=== PATIENT | male | born 1960 | race Caucasian/White ===

== ENCOUNTER 2020-12-30 09:44 | Inpatient (IN) | payer MEDICARE, OTHER ==
[2020-12-30] MEDS ORDERED: MORPHINE SULFATE 4 MG/ML SYRINGE IV STA (11:19)
[2020-12-30] MEDS ORDERED: ONDANSETRON 4 MG/2 ML VIAL IVP STA (11:19)
[2020-12-30] MEDS ORDERED: SODIUM CHLORIDE 0.9% 1,000 ML IV STA (11:19)
--- NOTE | 2020-12-30 11:23 | ED ---
Abdominal Pain HPI - General Chief Complaint: Abdominal Pain Stated Complaint: Sent by PCP - colostomy issues Time Seen by Provider: 12/30/20 11:01 Source: patient, RN notes reviewed Mode of arrival: ambulatory Limitations: no limitations - History of Present Illness Initial Comments: Patient is a 60-year-old male that presents to the emergency department complaining of a colostomy hernia. He notes that he's had in the past but was able to reduce it on his own by gently pushing on it or it would reduce on its own. He notes over the last couple days she's tried everything and pushing on it to playing with it with no relief. He notes that he has mailed to pass any stools throughout his liquid and moderate amount of blood. He states the pain is an 8 out of 10 currently after pushing on the chart reduce it. He notes that he did have one bout of vomiting on Tuesday but has not been nauseous or sick today. He notes that he has been thinking about getting his hernia fixed for a while but needed take care of a few other things first. He notes that now he is thinking the hernia takes priority and wants to get taken care of. He denied any chest pain shortness of breath headache fever fatigue chills weakness numbness tingling. - Related Data Home Medications Medication Instructions Recorded Confirmed metFORMIN HCL [Glucophage] 1,000 mg PO BID 12/19/14 12/30/20 Allergies Allergy/AdvReac Type Severity Reaction Status Date / Time No Known Allergies Allergy Verified 12/30/20 13:26 Review of Systems ROS Statement: Those systems with pertinent positive or pertinent negative responses have been documented in the HPI. ROS Other: All systems not noted in ROS Statement are negative. Past Medical History Past Medical History: Diabetes Mellitus, Hypertension Additional Past Medical History / Comment(s): COLON CANCER, Dumping syndrome History of Any Multi-Drug Resistant Organisms: None Reported Past Surgical History: Tonsillectomy Additional Past Surgical History / Comment(s): COLECTOMY, COLOSTOMY, TESTICULAR SURGERY. PARTIAL GASTRECTOMY, neck surgery Past Anesthesia/Blood Transfusion Reactions: No Reported Reaction Past Psychological History: No Psychological Hx Reported Smoking Status: Never smoker Past Alcohol Use History: Occasional Past Drug Use History: Marijuana - Past Family History Father Family Medical History: No Reported History General Exam Limitations: no limitations General appearance: alert, in no apparent distress Head exam: Present: atraumatic, normocephalic, normal inspection Eye exam: Present: normal appearance, PERRL, EOMI. Absent: scleral icterus, conjunctival injection, periorbital swelling Neck exam: Present: normal inspection. Absent: tenderness, meningismus, lymphadenopathy Respiratory exam: Present: normal lung sounds bilaterally. Absent: respiratory distress, wheezes, rales, rhonchi, stridor Cardiovascular Exam: Present: regular rate, normal rhythm, normal heart sounds. Absent: systolic murmur, diastolic murmur, rubs, gallop, clicks GI/Abdominal exam: Present: soft, tenderness (Over the hernia and ostomy.), normal bowel sounds, hernia (Of colostomy), other (Ostomy prolapse at the distal aspect has a dusky appearance with several dark almost blacked mucus patches.). Absent: distended, guarding, rebound, rigid Extremities exam: Present: normal inspection, full ROM, normal capillary refill. Absent: tenderness, pedal edema, joint swelling, calf tenderness Back exam: Present: normal inspection Neurological exam: Present: alert, oriented X3, CN II-XII intact Course Vital Signs 12/30/20 10:01 Temperature 98.1 F Pulse Rate 90 Respiratory 18 Rate Blood Pressure 156/87 O2 Sat by Pulse 96 Oximetry Medical Decision Making - Medical Decision Making 60-year-old male complaining of hernia to his colostomy. Labs, 1 L normal saline, CT of the abdomen and pelvis without contrast, 4 mg of morphine, 4 mg of Zofran ordered. Table sugar was used to try to reduce the prolapse, did not work. Case discussed with Dr. Workman who tried to also reduce the prolapse with no success. Dr. Medellin was consulted and will accept the admit. - Lab Data Result diagrams: 12/30/20 11:46 12/30/20 11:46 Lab Results 12/30/20 12/30/20 Range/Units 11:46 11:46 WBC 14.8 H (3.8-10.6) k/uL RBC 4.44 (4.30-5.90) m/uL Hgb 14.5 (13.0-17.5) gm/dL Hct 40.3 (39.0-53.0) % MCV 90.7 (80.0-100.0) fL MCH 32.6 (25.0-35.0) pg MCHC 36.0 (31.0-37.0) g/dL RDW 13.2 (11.5-15.5) % Plt Count 510 H (150-450) k/uL MPV 6.7 Neutrophils % 80 % Lymphocytes % 8 % Monocytes % 8 % Eosinophils % 2 % Basophils % 1 % Neutrophils # 11.9 H (1.3-7.7) k/uL Lymphocytes # 1.1 (1.0-4.8) k/uL Monocytes # 1.2 H (0-1.0) k/uL Eosinophils # 0.3 (0-0.7) k/uL Basophils # 0.1 (0-0.2) k/uL Sodium 134 L (137-145) mmol/L Potassium 4.2 (3.5-5.1) mmol/L Chloride 100 (98-107) mmol/L Carbon Dioxide 22 (22-30) mmol/L Anion Gap 12 mmol/L BUN 11 (9-20) mg/dL Creatinine 1.49 H (0.66-1.25) mg/dL Est GFR (CKD-EPI)AfAm 59 (>60 ml/min/1.73 sqM) Est GFR (CKD-EPI)NonAf 51 (>60 ml/min/1.73 sqM) Glucose 149 H (74-99) mg/dL Calcium 10.0 (8.4-10.2) mg/dL Total Bilirubin 0.8 (0.2-1.3) mg/dL AST 34 (17-59) U/L ALT 16 (4-49) U/L Alkaline Phosphatase 80 (38-126) U/L Total Protein 8.0 (6.3-8.2) g/dL Albumin 4.9 (3.5-5.0) g/dL Amylase 42 (30-110) U/L Lipase 73 (23-300) U/L - Radiology Data Radiology results: report reviewed, image reviewed CT of the abdomen and pelvis. Left lower quadrant ostomy noted with mild wall thickening no definite inflammatory process seen. Disposition Clinical Impression: Gastrointestinal stoma prolapse Disposition: ADMITTED IP TO THIS [facility] Condition: Stable Is patient prescribed a controlled substance at d/c from ED?: No Referrals: Andrés Sandoval DO [Primary Care Provider] - 1-2 days Time of Disposition: 14:29
[2020-12-30 11:50] LABS: Basophils # (A) 0.1 k/uL (0-0.2); Basophils % (A) 1 %; Eosinophils # (A) 0.3 k/uL (0-0.7); Eosinophils % (A) 2 %; HCT 40.3 % (39.0-53.0); HGB 14.5 gm/dL (13.0-17.5); Lymphocytes # (A) 1.1 k/uL (1.0-4.8); Lymphocytes % (A) 8 %; MCH 32.6 pg (25.0-35.0); MCV 90.7 fL (80.0-100.0); Mean Platelet Volume 6.7; Monocytes # (A) 1.2 k/uL (0-1.0); Monocytes % (A) 8 %; Neutrophils # (A) 11.9 k/uL (1.3-7.7); Neutrophils % (A) 80 %; Platelet Count 510 k/uL (150-450); RBC 4.44 m/uL (4.30-5.90); RDW 13.2 % (11.5-15.5); WBC 14.8 k/uL (3.8-10.6)
[2020-12-30 12:01] LABS: Albumin 4.9 g/dL (3.5-5.0); Potassium 4.2 mmol/L (3.5-5.1); Total Bilirubin 0.8 mg/dL (0.2-1.3)
--- NOTE | 2020-12-30 12:23 | CT ---
EXAMINATION TYPE: CT abdomen pelvis wo con DATE OF EXAM: 12/30/2020 COMPARISON: 12/13/1714 HISTORY: bleeding from ostomy CT DLP: 500.5 mGycm Examination of the solid and hollow viscera is limited given the lack of contrast. FINDINGS: LUNG BASES: No evidence for nodule. No evidence for infiltrate. Calcified pleural plaques noted. LIVER/GB: The gallbladder is unremarkable. No space-occupying hepatic lesion. PANCREAS: No pancreatic mass identified. No inflammatory process seen. SPLEEN: No evidence for splenomegaly. No intrasplenic lesions seen. ADRENALS: No adrenal nodules identified. No evidence for thickening. KIDNEYS: No evidence for renal mass. No nephrolithiasis. No hydronephrosis. BOWEL: Appendix has a normal appearance. Left lower quadrant ostomy noted with mild wall thickening. No definite inflammatory process seen. No evidence of bowel obstruction. No inflammatory process. Lymph nodes: No evidence for adenopathy greater than 1 cm. Abdominal aorta: Atheromatous changes seen. No evidence for aneurysm. Genital organs: No significant abnormality. Other: No significant abnormality. IMPRESSION: Left lower quadrant ostomy noted with mild wall thickening. No definite inflammatory process seen.
[2020-12-30] MEDS ORDERED: HYDROmorphone 1 MG/ML 1 ML SYRINGE IVP STA (12:48)
[2020-12-30] MEDS ORDERED: NALOXONE 0.4 MG/ML 1 ML VIAL IV PRN (14:16)
[2020-12-30] MEDS: SODIUM CHLORIDE 0.9% 1,000 ML IV SCH (14:28)
[2020-12-30] MEDS: MORPHINE SULFATE 4 MG/ML SYRINGE IV PRN ×3 (15:03→23:50)
--- NOTE | 2020-12-30 15:53 | P.GSCN ---
History of Present Illness Consult date: 12/30/20 History of present illness: CHIEF COMPLAINT: Prolapsed stoma HISTORY OF PRESENT ILLNESS: This is a 60-year-old male with a known history of rectal cancer with bowel resection and colostomy in 2013 at [facility] by Dr. Dye. He's also had gastrectomy and small bowel resection in 1992 due to cyst on his duodenum. He's had drainage of a pancreatic cyst at [facility] in 2016. He also has history of diabetes and hypertension. He has a prior history of alcohol abuse. He has not had any alcohol in 7 years. Patient presents to the emergency room due to prolapse of his stoma. He stated that similar symptoms happened a year ago and he was able to reduce it on his own. On Tuesday he noted that the Soma started to protrude out words and he had inc rease in pain. He was unable to reduce the hernia on his on. He has been having bleeding from the stoma. He has had no stool from the stoma. He's had some nausea and decrease in appetite. Patient denies any cardiac history. Denies any fever chills or sweats. Denies any vomiting. PAST MEDICAL HISTORY: See list. PAST SURGICAL HISTORY: See list. MEDICATIONS: See list. ALLERGIES: See list. SOCIAL HISTORY: No illicit drug use. REVIEW OF SYSTEMS: CONSTITUTIONAL: Denies fever or chills. HEENT: Denies blurred vision, vision changes, or eye pain. Denies hemoptysis CARDIOVASCULAR: Denies chest pain or pressure. RESPIRATORY: No shortness of breath. GASTROINTESTINAL: See HPI for pertinent findings HEMATOLOGIC: Denies bleeding disorders. GENITOURINARY: Denies any blood in urine or increased urinary frequency. SKIN: Denies pruitis. Denies rash. PHYSICAL EXAM: VITAL SIGNS: Reviewed GENERAL: Well-developed in no acute distress. HEENT: No sclera icterus. Extraocular movements grossly intact. Moist buccal mucosa. Head is atraumatic, normocephalic. No nasal drainage. ABDOMEN: Soft. On the left side of the abdomen patient has a prolapsed stoma. Around the stoma the abdomen is distended and tender. NEUROLOGIC: Alert and oriented. Cranial nerves II through XII grossly intact. LABORATORY DATA: WBC 14.8 Hgb 14.5 platelets 510 sodium 134 potassium 4.2 creatinine 1.49 LFTs normal lipase 73 IMAGING: Computed tomography scan of the abdomen and pelvis left lower quadrant ostomy noted with mild wall thickening. No definite inflammatory process seen ASSESSMENT: 1. Prolapsed stoma 2. History of rectal cancer with bowel resection and colostomy placement in 2013 3. Dehydration and acute kidney injury 4. Diabetes mellitus type 2 PLAN: -Patient scheduled for revision of colostomy tomorrow, 12/31/[address] Batres -Keep patient nothing by mouth -Continue IV fluids -Continue pain medication as needed Thank you for this consultation Physician Senior Nuclear Medicine Technologist note has been reviewed by physician. Signing provider agrees with the documented findings, assessment, and plan of care. Past Medical History Past Medical History: Diabetes Mellitus, Hypertension Additional Past Medical History / Comment(s): COLON CANCER, Dumping syndrome History of Any Multi-Drug Resistant Organisms: None Reported Past Surgical History: Tonsillectomy Additional Past Surgical History / Comment(s): COLECTOMY, COLOSTOMY, TESTICULAR SURGERY. PARTIAL GASTRECTOMY, neck surgery Past Anesthesia/Blood Transfusion Reactions: No Reported Reaction Past Psychological History: No Psychological Hx Reported Smoking Status: Never smoker Past Alcohol Use History: Occasional Past Drug Use History: Marijuana - Past Family History Father Family Medical History: No Reported History Medications and Allergies Home Medications Medication Instructions Recorded Confirmed Type metFORMIN HCL [Glucophage] 1,000 mg PO BID 12/19/14 12/30/20 History Allergies Allergy/AdvReac Type Severity Reaction Status Date / Time No Known Allergies Allergy Verified 12/30/20 13:26 Surgical - Exam Vital Signs Temp Pulse Resp BP Pulse Ox 98.1 F 90 18 156/87 96 12/30/20 10:01 12/30/20 10:01 12/30/20 10:01 12/30/20 10:01 12/30/20 10:01 Results - Labs 12/30/20 11:46 12/30/20 11:46 Abnormal Lab Results - Last 24 Hours (Table) 12/30/20 12/30/20 Range/Units 11:46 11:46 WBC 14.8 H (3.8-10.6) k/uL Plt Count 510 H (150-450) k/uL Neutrophils # 11.9 H (1.3-7.7) k/uL Monocytes # 1.2 H (0-1.0) k/uL Sodium 134 L (137-145) mmol/L Creatinine 1.49 H (0.66-1.25) mg/dL Glucose 149 H (74-99) mg/dL Diabetes panel 12/30/20 Range/Units 11:46 Sodium 134 L (137-145) mmol/L Potassium 4.2 (3.5-5.1) mmol/L Chloride 100 (98-107) mmol/L Carbon Dioxide 22 (22-30) mmol/L BUN 11 (9-20) mg/dL Creatinine 1.49 H (0.66-1.25) mg/dL Glucose 149 H (74-99) mg/dL Calcium 10.0 (8.4-10.2) mg/dL AST 34 (17-59) U/L ALT 16 (4-49) U/L Alkaline Phosphatase 80 (38-126) U/L Total Protein 8.0 (6.3-8.2) g/dL Albumin 4.9 (3.5-5.0) g/dL Calcium panel 12/30/20 Range/Units 11:46 Calcium 10.0 (8.4-10.2) mg/dL Albumin 4.9 (3.5-5.0) g/dL Pituitary panel 12/30/20 Range/Units 11:46 Sodium 134 L (137-145) mmol/L Potassium 4.2 (3.5-5.1) mmol/L Chloride 100 (98-107) mmol/L Carbon Dioxide 22 (22-30) mmol/L BUN 11 (9-20) mg/dL Creatinine 1.49 H (0.66-1.25) mg/dL Glucose 149 H (74-99) mg/dL Calcium 10.0 (8.4-10.2) mg/dL Adrenal panel 12/30/20 Range/Units 11:46 Sodium 134 L (137-145) mmol/L Potassium 4.2 (3.5-5.1) mmol/L Chloride 100 (98-107) mmol/L Carbon Dioxide 22 (22-30) mmol/L BUN 11 (9-20) mg/dL Creatinine 1.49 H (0.66-1.25) mg/dL Glucose 149 H (74-99) mg/dL Calcium 10.0 (8.4-10.2) mg/dL Total Bilirubin 0.8 (0.2-1.3) mg/dL AST 34 (17-59) U/L ALT 16 (4-49) U/L Alkaline Phosphatase 80 (38-126) U/L Total Protein 8.0 (6.3-8.2) g/dL Albumin 4.9 (3.5-5.0) g/dL
[2020-12-30] MEDS: PIPERACILLIN-TAZOBACTAM 3.375 GM in SODIUM CHLORIDE 0.9% 100 ML IVPB SCH (20:52)
[2020-12-31] MEDS: MORPHINE SULFATE 4 MG/ML SYRINGE IV PRN ×4 (05:09→22:28)
[2020-12-31 05:23] LABS: Basophils # (A) 0.1 k/uL (0-0.2); Basophils % (A) 1 %; Eosinophils # (A) 0.2 k/uL (0-0.7); Eosinophils % (A) 3 %; HCT 36.8 % (39.0-53.0); HGB 13.1 gm/dL (13.0-17.5); Lymphocytes # (A) 1.2 k/uL (1.0-4.8); Lymphocytes % (A) 12 %; MCH 32.9 pg (25.0-35.0); MCHC 35.7 g/dL (31.0-37.0); MCV 92.1 fL (80.0-100.0); Mean Platelet Volume 6.7; Monocytes # (A) 1.1 k/uL (0-1.0); Monocytes % (A) 11 %; Neutrophils % (A) 71 %; Platelet Count 408 k/uL (150-450); RDW 13.3 % (11.5-15.5); WBC 9.7 k/uL (3.8-10.6)
[2020-12-31 05:35] LABS: African American GFR (CKD) >90 (>60 ml/min/1.73 sqM); Anion Gap 11 mmol/L; Blood Urea Nitrogen 11 mg/dL (9-20); Calcium 8.7 mg/dL (8.4-10.2); Carbon Dioxide 21 mmol/L (22-30); Chloride 105 mmol/L (98-107); Glucose 120 mg/dL (74-99); Non-African American GFR(CKD) 82 (>60 ml/min/1.73 sqM); Potassium 3.9 mmol/L (3.5-5.1); Sodium 137 mmol/L (137-145)
[2020-12-31] MEDS: PIPERACILLIN-TAZOBACTAM 3.375 GM in SODIUM CHLORIDE 0.9% 100 ML IVPB SCH ×3 (09:27→22:30)
[2020-12-31] MEDS ORDERED: IV FLUID CONTINUATION 1,000 ML IV ONE (13:11)
[2020-12-31 13:12] LABS: Glucose,Whole Blood 110 mg/dL (75-99)
[2020-12-31] MEDS ORDERED: DEXAMETHASONE SOD PHOSPHATE 4 MG/ML 1 ML VIAL IVP ONE (13:14)
[2020-12-31] MEDS ORDERED: ONDANSETRON 4 MG/2 ML VIAL IVP ONE (13:14)
[2020-12-31] MEDS ORDERED: ONDANSETRON 4 MG/2 ML VIAL ONE (13:15)
[2020-12-31] MEDS ORDERED: HEPARIN SODIUM,PORCINE 5,000 UNIT/ML 1 ML VIAL SQ ONE (13:41)
[2020-12-31 14:05] VITALS: BMI 20.9
[2020-12-31] MEDS ORDERED: GLYCOPYRROLATE 0.2 MG/ML 2 ML VIAL ONE (14:16)
[2020-12-31] MEDS ORDERED: fentaNYL (PF) 50 MCG/ML 2 ML AMP ONE (14:16)
[2020-12-31] MEDS ORDERED: PHENYLEPHRINE-0.9% NACL SYG 1,000 MCG/10 ML SYRINGE ONE (14:16)
[2020-12-31] MEDS ORDERED: LIDOCAINE 1% INJ 10MG/ML (20 ML MDV) ONE (14:16)
[2020-12-31] MEDS ORDERED: MIDAZOLAM 2 MG/2 ML VIAL ONE (14:16)
[2020-12-31] MEDS ORDERED: SUCCINYLCHOLINE CHLORIDE 100 MG/5 ML SYR IV ONE (14:16)
[2020-12-31] MEDS ORDERED: KETOROLAC 15 MG/ML 1 ML VIAL ONE (14:16)
[2020-12-31] MEDS ORDERED: PROPOFOL 10 MG/ML 20 ML VIAL IV ONE (14:16)
[2020-12-31] MEDS ORDERED: HYDROmorphone (PF) 1 MG/ML ONE (14:16)
[2020-12-31] MEDS ORDERED: ROCURONIUM 10 MG/ML (5 ML VIAL) IV ONE (14:16)
[2020-12-31] MEDS ORDERED: NEOSTIGMINE 1 MG/ML 10 ML VIAL ONE (14:16)
[2020-12-31] MEDS ORDERED: LACTATED RINGERS 1,000 ML IV ONE ×3 (14:56→15:45)
--- NOTE | 2020-12-31 15:16 | P.OP ---
Date of Procedure: 12/31/20 Preoperative Diagnosis: Prolapse of colostomy Postoperative Diagnosis: Prolapse of colostomy Procedure(s) Performed: Revision of colostomy Partial colectomy Anesthesia: COLLINA Surgeon: Keith Batres Estimated Blood Loss (ml): 10 Pathology: other (colon) Condition: stable Disposition: PACU Description of Procedure: Patient's placed on the operative table in the supine position. He received general anesthesia. His abdomen was prepped and draped usual fashion. The patient had a prolapse colostomy with evidence of ischemia. Using left cautery the mucocutaneous junction was divided. And then the redundant bowel was brought up in the wound. The bowel was then examined. There is diverticular changes. Using the cautery a small opening was in the bowel. The bowel was then transected using the Enseal device. Mesentery the bowel was divided using the Enseal device. The specimens of pathology. The colostomy then matured using 3-0 Vicryl. Patient top she will was sent to recovery room stable condition.
[2020-12-31] MEDS: HYDROmorphone 0.5 MG/0.5 ML SYRINGE IVP ONE ×2 (15:50→16:03)
[2020-12-31] MEDS ORDERED: hydrALAZINE HCL 20 MG/ML 1 ML VIAL IV ONE (16:04)
[2020-12-31 16:05] VITALS: RESP 16
[2020-12-31] MEDS ORDERED: HYDROmorphone 0.5 MG/0.5 ML SYRINGE IVP ONE ×2 (16:16→16:34)
[2020-12-31] MEDS: SODIUM CHLORIDE 0.9% 1,000 ML IV SCH ×2 (16:32→19:34)
[2020-12-31 16:52] LABS: Glucose,Whole Blood 153 mg/dL (75-99)
[2020-12-31] MEDS ORDERED: hydrALAZINE HCL 20 MG/ML 1 ML VIAL IVP PRN (18:12)
[2020-12-31] MEDS ORDERED: LORazepam 0.5 MG TAB PO PRN (18:13)
[2020-12-31] MEDS: lisinopriL 10 MG TAB PO SCH (19:35)
[2020-12-31] MEDS: metFORMIN 500 MG TAB PO SCH (20:11)
[2020-12-31 20:46] LABS: Glucose,Whole Blood 223 mg/dL (75-99)
--- NOTE | 2020-12-31 21:58 | CONS ---
CONSULTATION DATE OF SERVICE: 12/31/2020. REASON FOR CONSULTATION: Advice regarding hypertension, diabetes requested by Dr. Batres. HISTORY OF PRESENT ILLNESS: This 60-year-old gentleman with a past history of diabetes, GERD, hypertension, history of pneumonia, being followed by Dr. Sandoval in the outpatient setting, underwent revision colostomy for partial colectomy for prolapse of the colostomy by Dr. Batres. The blood pressure is elevated up to 180/80 in the postop. Patient apparently was in long term recently and the patient was taking Norvasc which the patient did not like. The patient has taken lisinopril subsequently. The patient is being closely monitored at this time. The blood pressure is currently at 180/130. There is no history of fever, rigors. No history of headache, loss of consciousness, seizures at this time. PAST MEDICAL HISTORY: Hypertension, diabetes, GERD, history of pneumonia. MEDICATIONS: Medications prior to admission home medications are: Glucophage 1000 mg p.o. b.i.d. ALLERGIES: None. FAMILY HISTORY: History of myocardial infarction in the family. SOCIAL HISTORY: Previous history of smoking, occasional THC. REVIEW OF SYSTEMS: ENT: No diminished vision. No diminished hearing. CARDIOVASCULAR: No angina. RESPIRATORY: No cough. GI: As mentioned earlier. : No dysuria. NERVOUS SYSTEM: No numbness or weakness. ALLERGY/IMMUNOLOGY: No asthma or hayfever. MUSCULOSKELETAL as mentioned earlier. HEMATOLOGY/ONCOLOGY: No history of anemia. ENDOCRINE: Diabetes. CONSTITUTIONAL: As mentioned earlier. DERMATOLOGY: Negative. RHEUMATOLOGY: Negative. PSYCHIATRY: As mentioned earlier. PHYSICAL EXAMINATION: Alert and oriented times three. Pulse 76. Blood pressure 180/80. Respirations 16, temperature 99.1, pulse ox 97%. HEENT: Conjunctivae normal. NECK: No JVD. CARDIOVASCULAR: S1, S2. RESPIRATORY: Breath sounds diminished in the bases. No rhonchi. No crackles. ABDOMEN: Soft. Status post surgery. LEGS: No edema. No swelling. NERVOUS SYSTEM: No focal deficits. LYMPHATICS: No lymph nodes palpable in the neck, axillae or groin. SKIN: No ulcer, no rash and no bleeding. JOINTS: No active deforming arthropathy. LAB STUDIES: WBC 9.7, hemoglobin 13.1, sodium 137, potassium 3.9. Glucose 153. Covid 19 is negative. ASSESSMENT: 1. Status post revision colostomy and partial colectomy for prolapse of the colostomy. 2. Hypertension. 3. Increased WBC, improved. 4. Diabetes mellitus type 2. 5. History of gastroesophageal reflux disease. 6. History of pneumonia. 7. History of peripheral neuropathy. 8. History of pancreatitis and pancreatic calcification. 9. History of degenerative joint disease. 10.History of nicotine dependence. RECOMMENDATIONS AND DISCUSSION: This 60-year-old gentleman who presented with multiple complex medical issues, we will monitor the patient closely. Continue the current medications, management. Resume the home medication. Monitor blood sugars closely. I would also recommend a course of lisinopril, p.r.n. medications, IV antibiotics has been initiated. We will follow the patient closely. The patient will be asked to follow up with primary physician closely after discharge. Thank you Dr. Batres for letting us participate in the care of this patient. MMODL / IJN: [id number] /
[2021-01-01 02:36] VITALS: PULSE 79
[2021-01-01 07:04] LABS: Glucose,Whole Blood 178 mg/dL (75-99)
[2021-01-01] MEDS: PIPERACILLIN-TAZOBACTAM 3.375 GM in SODIUM CHLORIDE 0.9% 100 ML IVPB SCH (07:29)
[2021-01-01] MEDS: metFORMIN 500 MG TAB PO SCH (07:29)
[2021-01-01] MEDS: lisinopriL 10 MG TAB PO SCH (07:29)
[2021-01-01] MEDS: SODIUM CHLORIDE 0.9% 1,000 ML IV SCH (07:29)
[2021-01-01] MEDS: MORPHINE SULFATE 4 MG/ML SYRINGE IV PRN (07:30)
[2021-01-01 07:36] VITALS: BP 122/69; TEMP 98.7
[2021-01-01 09:03] LABS: Basophils # (A) 0.1 k/uL (0-0.2); Basophils % (A) 1 %; Eosinophils # (A) 0.1 k/uL (0-0.7); Eosinophils % (A) 1 %; HGB 11.2 gm/dL (13.0-17.5); Lymphocytes # (A) 1.2 k/uL (1.0-4.8); Lymphocytes % (A) 11 %; MCH 32.8 pg (25.0-35.0); MCHC 35.1 g/dL (31.0-37.0); MCV 93.2 fL (80.0-100.0); Monocytes # (A) 1.4 k/uL (0-1.0); Monocytes % (A) 13 %; Neutrophils # (A) 7.8 k/uL (1.3-7.7); Neutrophils % (A) 73 %; Platelet Count 351 k/uL (150-450); RBC 3.43 m/uL (4.30-5.90); RDW 13.3 % (11.5-15.5); WBC 10.6 k/uL (3.8-10.6)
[2021-01-01 09:11] LABS: African American GFR (CKD) >90 (>60 ml/min/1.73 sqM); Anion Gap 6 mmol/L; Blood Urea Nitrogen 12 mg/dL (9-20); Calcium 8.2 mg/dL (8.4-10.2); Carbon Dioxide 23 mmol/L (22-30); Chloride 102 mmol/L (98-107); Glucose 182 mg/dL (74-99); Non-African American GFR(CKD) 85 (>60 ml/min/1.73 sqM); Potassium 4.2 mmol/L (3.5-5.1); Sodium 131 mmol/L (137-145)
[2021-01-01 11:40] LABS: Glucose,Whole Blood 155 mg/dL (75-99)
[2021-01-01] MEDS ORDERED: HYDROcodone/APAP 5-325MG 1 EACH TAB PO PRN (12:35)
--- NOTE | 2021-01-01 12:43 | P.DS ---
Providers Date of admission: 12/30/20 14:20 Expected date of discharge: 01/01/21 Attending physician: Keith Batres Consults: 12/31/20 15:13 Consult Physician Routine Consulting Provider: Heather Cerda Consult Reason/Comments: Medical management Do you want consulting provider notified?: Yes Primary care physician: Andrés Sandoval Hospital Course: Discharge diagnosis 1. Prolapse of colostomy status post revision of colostomy and partial colectomy Hospital course This is a 60-year-old male with a known history of rectal cancer with bowel resection and colostomy in 2013 at [facility] by Dr. Dye. He's also had gastrectomy and small bowel resection in 1992 due to cyst on his duodenum. He's had drainage of a pancreatic cyst at [facility] in 2015. He also has history of diabetes and hypertension. He has a prior history of alcohol abuse. He has not had any alcohol in 7 years. Patient presents to the emergency room due to prolapse of his stoma. He stated that similar symptoms happened a year ago and he was able to reduce it on his own. On Tuesday he noted that the Stoma started to protrude out words and he had increase in pain. He was unable to reduce the hernia on his on. He has been having bleeding from the stoma. He has had no stool from the ostomy. Patient is status post revision of colostomy and partial colectomy for prolapse of colostomy. Patient tolerated surgery well. His pain is controlled. He is tolerating diet. He does have air present in his ostomy bag. Patient is afebrile. He is stable for discharge. Please free to chart for any further details. Physician Oncology Specialist note has been reviewed by physician. Signing provider agrees with the documented findings, assessment, and plan of care. Patient Condition at Discharge: Stable Plan - Discharge Summary Discharge Rx Participant: No New Discharge Prescriptions: New HYDROcodone/APAP 5-325MG [[place] 5-325] 1 tab PO Q6HR PRN 3 Days #10 tab PRN Reason: Pain Docusate [Colace] 100 mg PO BID #30 capsule Continue metFORMIN HCL [Glucophage] 1,000 mg PO BID Discharge Medication List metFORMIN HCL [Glucophage] 1,000 mg PO BID 12/19/14 [History] Docusate [Colace] 100 mg PO BID #30 capsule 01/01/21 [Rx] HYDROcodone/APAP 5-325MG [[place] 5-325] 1 tab PO Q6HR PRN 3 Days #10 tab 01/01/21 [Rx] Follow up Appointment(s)/Referral(s): Andrés Sandoval DO [Primary Care Provider] - 1-2 days Keith Batres MD [STAFF PHYSICIAN] - 1 Week Activity/Diet/Wound Care/Special Instructions: Medicine service to complete discharge med rec No driving while taking [place] No lifting over 10 pounds You may shower. No soaking or tub baths for 2 weeks Very light activity until you are reevaluated at your follow up appointment with your surgeon Discharge Disposition: HOME SELF-CARE
--- NOTE | 2021-01-01 14:14 | P.PN ---
Subjective This is a pleasant 60 years old male with past medical history of diabetes mellitus, hypertension, diabetic neuropathy, colon cancer with surgery and colostomy with dumping syndrome, history of pancreatitis and pseudocyst, degenerative disc disease and chronic back pain. He is status post revision of his colostomy due to prolapse, today is postop day #1. Patient is fully awake and oriented, he denies chest pain or dyspnea or coughing. He has some mild discomfort at the lower part of his colostomy back, colostomy back looks in place and patient told me he emptied her serosanguineous liquids about 4-5 times since yesterday. Still has some serosanguineous fluid in it but no bowel movement yet When I saw him in the morning. Labs show sodium 131, WBC is normal. Creatinine normal 0.9, sugar control 155- 223. Objective - Vital Signs Vital signs: Vital Signs Temp 98.7 F 01/01/21 07:35 Pulse 79 01/01/21 07:35 Resp 16 01/01/21 07:35 BP 122/69 01/01/21 07:35 Pulse Ox 97 01/01/21 07:35 Intake & Output 12/31/20 01/01/21 01/01/21 18:59 06:59 18:59 Intake Total 1150 Output Total 5 Balance 1145 Weight 70.307 kg Intake: IV 1150 Output: Estimated Blood Loss 5 Other: Voiding Method Toilet - Exam GENERAL: The patient is alert and oriented x3, not in any acute distress. Well developed, well nourished. HEENT: Pupils are round and equally reacting to light. EOMI. No scleral icterus. No conjunctival pallor. Normocephalic, atraumatic. No pharyngeal erythema. No thyromegaly. CARDIOVASCULAR: S1 and S2 present. No murmurs, rubs, or gallops. PULMONARY: Chest is clear to auscultation, no wheezing or crackles. -ABDOMEN: Soft, nontender, nondistended, normoactive bowel sounds. No palpable organomegaly. Left lower colostomy back MUSCULOSKELETAL: No joint swelling or deformity. EXTREMITIES: No cyanosis, clubbing, or pedal edema. NEUROLOGICAL: Gross neurological examination did not reveal any focal deficits. SKIN: No rashes. no petechiae. - Labs CBC & Chem 7: 01/01/21 08:15 01/01/21 08:15 Labs: Abnormal Lab Results - Last 24 Hours (Table) 12/31/20 12/31/20 12/31/20 Range/Units 13:00 16:51 20:44 RBC (4.30-5.90) m/uL Hgb (13.0-17.5) gm/dL Hct (39.0-53.0) % Neutrophils # (1.3-7.7) k/uL Monocytes # (0-1.0) k/uL Sodium (137-145) mmol/L Glucose (74-99) mg/dL POC Glucose (mg/dL) 110 H 153 H 223 H (75-99) mg/dL Calcium (8.4-10.2) mg/dL 01/01/21 01/01/21 01/01/21 Range/Units 06:50 08:15 08:15 RBC 3.43 L (4.30-5.90) m/uL Hgb 11.2 L (13.0-17.5) gm/dL Hct 32.0 L (39.0-53.0) % Neutrophils # 7.8 H (1.3-7.7) k/uL Monocytes # 1.4 H (0-1.0) k/uL Sodium 131 L (137-145) mmol/L Glucose 182 H (74-99) mg/dL POC Glucose (mg/dL) 178 H (75-99) mg/dL Calcium 8.2 L (8.4-10.2) mg/dL 01/01/21 Range/Units 11:39 RBC (4.30-5.90) m/uL Hgb (13.0-17.5) gm/dL Hct (39.0-53.0) % Neutrophils # (1.3-7.7) k/uL Monocytes # (0-1.0) k/uL Sodium (137-145) mmol/L Glucose (74-99) mg/dL POC Glucose (mg/dL) 155 H (75-99) mg/dL Calcium (8.4-10.2) mg/dL Assessment and Plan Assessment: Prolapse of colostomy status post revision of colostomy. Today is postoperative day #1 Hypertension, uncontrolled upon admission, currently is well controlled after and lisinopril Leukocytosis, mostly reactive, back to normal Mild euvolemic hyponatremia Type 2 diabetes mellitus History of gastroesophageal reflux disease Peripheral diabetic neuropathy History of pancreatitis and pancreatic pseudocyst History of degenerative joint disease History of nicotine dependence Plan: This is a pleasant 60 years old male he is status post colostomy revision by surgery team. Further postoperative management as per primary surgery team. Patient blood pressure on admission was uncontrolled, currently is better controlled after adding lisinopril 10 mg yesterday, patient instructed to follow up with his PCP in one week to check his blood test Labs and medication were reviewed.. Continue same treatment. Continue with symptomatic treatment. Resume home medication. Monitor lytes and vitals. DVT and GI prophylaxis as per surgery primary team. Discussed the plan with bed side nurse We recommend patient follow up with PCP Dr. Reeder in 1 week and he was instructed with the same Thank you for consulting us
== END 2021-01-01 14:36 | disposition home or self-care (01) | DRG 330 ==
LOC: EC 09:44 → 4SSUR 14:20 → 1SOBS 12-31 07:15 → 4SSUR 12-31 15:44
PROVIDERS: ADMIT Surgery; ATTEND Surgery
PROC: 0DBE0ZZ Excision of Large Intestine, Open Approach (ICD-10-PCS; principal; 2020-12-31 10:20)
DX: K94.09 Other complications of colostomy (principal); E87.1 Hypo-osmolality and hyponatremia; N17.9 Acute kidney failure, unspecified; Z79.84 Long term (current) use of oral hypoglycemic drugs; K43.5 Parastomal hernia without obstruction or gangrene; I10 Essential (primary) hypertension; K21.9 Gastro-esophageal reflux disease without esophagitis; E11.42 Type 2 diabetes mellitus with diabetic polyneuropathy; Z87.891 Personal history of nicotine dependence; E86.0 Dehydration; Z85.048 Personal history of other malignant neoplasm of rectum, rectosigmoid junction, and anus; Z82.49 Family history of ischemic heart disease and other diseases of the circulatory system; Z87.01 Personal history of pneumonia (recurrent); Z90.3 Acquired absence of stomach [part of]; Y83.3 Surgical operation with formation of external stoma as the cause of abnormal reaction of the patient, or of later complication, without mention of misadventure at the time of the procedure
CPT/HCPCS: 36415; 74176; 80048; 80053; 82150; 83690; 85025; 87635; 96361; 96374; 96375; 99285

== ENCOUNTER 2021-01-06 12:13 | Emergency (ER) | payer MEDICARE, OTHER ==
[2021-01-06 12:20] VITALS: TEMP 97.4
[2021-01-06] MEDS ORDERED: MORPHINE SULFATE 4 MG/ML SYRINGE IV STA (15:35)
[2021-01-06] MEDS ORDERED: SODIUM CHLORIDE 0.9% 500 ML 500 ML IV STA (15:35)
[2021-01-06 15:58] LABS: Basophils # (A) 0.1 k/uL (0-0.2); Basophils % (A) 1 %; Eosinophils # (A) 0.4 k/uL (0-0.7); Eosinophils % (A) 4 %; HCT 37.5 % (39.0-53.0); HGB 12.2 gm/dL (13.0-17.5); Lymphocytes # (A) 1.6 k/uL (1.0-4.8); Lymphocytes % (A) 18 %; MCH 30.7 pg (25.0-35.0); MCHC 32.5 g/dL (31.0-37.0); MCV 94.2 fL (80.0-100.0); Mean Platelet Volume 6.8; Monocytes # (A) 0.8 k/uL (0-1.0); Monocytes % (A) 10 %; Neutrophils # (A) 5.6 k/uL (1.3-7.7); Neutrophils % (A) 64 %; Platelet Count 425 k/uL (150-450); RBC 3.98 m/uL (4.30-5.90); RDW 13.8 % (11.5-15.5); WBC 8.7 k/uL (3.8-10.6)
--- NOTE | 2021-01-06 15:59 | ED ---
General Adult HPI - General Chief complaint: Abdominal Pain Stated complaint: sent from [facility], Pain at stoma Time Seen by Provider: 01/06/21 13:58 Source: patient, RN notes reviewed, old records reviewed Mode of arrival: ambulatory Limitations: no limitations - History of Present Illness Initial comments: 60-year-old male with recent colostomy revision presenting with abdominal pain, and some black spots over his ostomy. He was sent in by his primary care physician who requested that he be evaluated for postoperative pain and concern with the ostomy itself. Patient denies fever. He has had output from the ostomy. He's had nausea without significant vomiting - Related Data Home Medications Medication Instructions Recorded Confirmed metFORMIN HCL [Glucophage] 1,000 mg PO BID 12/19/14 01/06/21 Previous Rx's Medication Instructions Recorded Docusate [Colace] 100 mg PO BID #30 capsule 01/01/21 HYDROcodone/APAP 5-325MG [Many 1 tab PO Q6HR PRN 3 Days #10 tab 01/01/21 5-325] lisinopriL [Zestril] 10 mg PO DAILY #30 tab 01/01/21 Allergies Allergy/AdvReac Type Severity Reaction Status Date / Time No Known Allergies Allergy Verified 01/06/21 16:14 Review of Systems ROS Statement: Those systems with pertinent positive or pertinent negative responses have been documented in the HPI. ROS Other: All systems not noted in ROS Statement are negative. Past Medical History Past Medical History: Cancer, Diabetes Mellitus, Eye Disorder, GERD/Reflux, Hearing Disorder / Deafness, Hypertension, Pneumonia Additional Past Medical History / Comment(s): NIDDM type II, neuropathy bilateral feet/R arm, colon cancer with surgery/colostomy/dumping syndrome, pancreatitis/pancreatic calcification/pseudocyst, cystic lesions L upper quadrant, anemia, chronic lumbar back pain, DDD, L eye retinal problem/affected peripheral vision, bilateral tinnitis, sinus problems, nephrolithiasis, past HTN. History of Any Multi-Drug Resistant Organisms: None Reported Past Surgical History: Orthopedic Surgery, Tonsillectomy Additional Past Surgical History / Comment(s): 1992 partial gastrectomy/small bowel resection d/t duodenal cyst, 2013 colon cancer with colectomy/ileostomy, cervical surgery with hardware, testicular surgery d/t injury, EGD, colonoscopy. Past Anesthesia/Blood Transfusion Reactions: No Reported Reaction Past Psychological History: No Psychological Hx Reported Smoking Status: Former smoker Past Alcohol Use History: None Reported Past Drug Use History: None Reported - Past Family History Father Family Medical History: Myocardial Infarction (TN) Additional Family Medical History / Comment(s): Father of a massive [place] at the age of 73yrs. General Exam Limitations: no limitations General appearance: alert, in no apparent distress Head exam: Present: atraumatic, normocephalic Eye exam: Present: normal appearance, PERRL ENT exam: Present: normal exam Neck exam: Present: normal inspection, tenderness Respiratory exam: Present: normal lung sounds bilaterally. Absent: respiratory distress, wheezes Cardiovascular Exam: Present: regular rate, normal rhythm GI/Abdominal exam: Present: soft, distended, tenderness, hernia, other (Ostomy, there is some dark discoloration on the stoma itself. No purulent drainage. Minimal surrounding erythema. ). Absent: guarding, rebound Extremities exam: Present: normal inspection, normal capillary refill. Absent: pedal edema Neurological exam: Present: alert, CN II-XII intact. Absent: motor sensory deficit Psychiatric exam: Present: normal affect, normal mood Skin exam: Present: warm, dry, intact. Absent: cyanosis, diaphoretic Course Vital Signs 01/06/21 01/06/21 12:15 17:00 Temperature 97.4 F L Pulse Rate 63 66 Respiratory 20 16 Rate Blood Pressure 188/77 177/89 O2 Sat by Pulse 100 100 Oximetry Medical Decision Making - Medical Decision Making 60-year-old male presenting for evaluation of abdominal pain 6 days postop ostomy repair. I did initiate workup including CBC, CMP, laboratory testing is unremarkable. 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 CT performed showing postsurgical changes with no acute finds, no abscess or free air. I did discuss case with Dr. Batres who is familiar with this patient. Recommends continued outpatient evaluation in 2 days which the patient is already scheduled for. Patient's given return parameters. - Lab Data Result diagrams: 01/06/21 15:42 01/06/21 15:42 Lab Results 01/06/21 01/06/21 01/06/21 Range/Units 15:42 15:42 15:42 WBC 8.7 (3.8-10.6) k/uL RBC 3.98 L (4.30-5.90) m/uL Hgb 12.2 L (13.0-17.5) gm/dL Hct 37.5 L (39.0-53.0) % MCV 94.2 (80.0-100.0) fL MCH 30.7 (25.0-35.0) pg MCHC 32.5 (31.0-37.0) g/dL RDW 13.8 (11.5-15.5) % Plt Count 425 (150-450) k/uL MPV 6.8 Neutrophils % 64 % Lymphocytes % 18 % Monocytes % 10 % Eosinophils % 4 % Basophils % 1 % Neutrophils # 5.6 (1.3-7.7) k/uL Lymphocytes # 1.6 (1.0-4.8) k/uL Monocytes # 0.8 (0-1.0) k/uL Eosinophils # 0.4 (0-0.7) k/uL Basophils # 0.1 (0-0.2) k/uL PT 10.4 (9.0-12.0) sec INR 1.0 (<1.2) APTT 23.4 (22.0-30.0) sec Sodium 137 (137-145) mmol/L Potassium 4.3 (3.5-5.1) mmol/L Chloride 102 (98-107) mmol/L Carbon Dioxide 27 (22-30) mmol/L Anion Gap 8 mmol/L BUN 12 (9-20) mg/dL Creatinine 0.79 (0.66-1.25) mg/dL Est GFR (CKD-EPI)AfAm >90 (>60 ml/min/1.73 sqM) Est GFR (CKD-EPI)NonAf >90 (>60 ml/min/1.73 sqM) Glucose 111 H (74-99) mg/dL Plasma Lactic Acid [place] (0.7-2.0) mmol/L Calcium 9.2 (8.4-10.2) mg/dL Total Bilirubin 0.3 (0.2-1.3) mg/dL AST 24 (17-59) U/L ALT 12 (4-49) U/L Alkaline Phosphatase 64 (38-126) U/L Total Protein 6.8 (6.3-8.2) g/dL Albumin 4.1 (3.5-5.0) g/dL Amylase 36 (30-110) U/L Lipase 51 (23-300) U/L Urine Color Urine Appearance (Clear) Urine pH (5.0-8.0) Ur Specific [place] (1.001-1.035) Urine Protein (Negative) Urine Glucose (UA) (Negative) Urine Ketones (Negative) Urine Blood (Negative) Urine Nitrite (Negative) Urine Bilirubin (Negative) Urine Urobilinogen (<2.0) mg/dL Ur Leukocyte Esterase (Negative) 01/06/21 01/06/21 Range/Units 15:42 16:59 WBC (3.8-10.6) k/uL RBC (4.30-5.90) m/uL Hgb (13.0-17.5) gm/dL Hct (39.0-53.0) % MCV (80.0-100.0) fL MCH (25.0-35.0) pg MCHC (31.0-37.0) g/dL RDW (11.5-15.5) % Plt Count (150-450) k/uL MPV Neutrophils % % Lymphocytes % % Monocytes % % Eosinophils % % Basophils % % Neutrophils # (1.3-7.7) k/uL Lymphocytes # (1.0-4.8) k/uL Monocytes # (0-1.0) k/uL Eosinophils # (0-0.7) k/uL Basophils # (0-0.2) k/uL PT (9.0-12.0) sec INR (<1.2) APTT (22.0-30.0) sec Sodium (137-145) mmol/L Potassium (3.5-5.1) mmol/L Chloride (98-107) mmol/L Carbon Dioxide (22-30) mmol/L Anion Gap mmol/L BUN (9-20) mg/dL Creatinine (0.66-1.25) mg/dL Est GFR (CKD-EPI)AfAm (>60 ml/min/1.73 sqM) Est GFR (CKD-EPI)NonAf (>60 ml/min/1.73 sqM) Glucose (74-99) mg/dL Plasma Lactic Acid [place] 1.3 (0.7-2.0) mmol/L Calcium (8.4-10.2) mg/dL Total Bilirubin (0.2-1.3) mg/dL AST (17-59) U/L ALT (4-49) U/L Alkaline Phosphatase (38-126) U/L Total Protein (6.3-8.2) g/dL Albumin (3.5-5.0) g/dL Amylase (30-110) U/L Lipase (23-300) U/L Urine Color Colorless Urine Appearance Clear (Clear) Urine pH 6.5 (5.0-8.0) Ur Specific [place] 1.012 (1.001-1.035) Urine Protein Negative (Negative) Urine Glucose (UA) Negative (Negative) Urine Ketones Negative (Negative) Urine Blood Negative (Negative) Urine Nitrite Negative (Negative) Urine Bilirubin Negative (Negative) Urine Urobilinogen <2.0 (<2.0) mg/dL Ur Leukocyte Esterase Negative (Negative) Disposition Clinical Impression: Abdominal pain Disposition: HOME SELF-CARE Condition: Good Instructions (If sedation given, give patient instructions): Abdominal Pain (ED ) Is patient prescribed a controlled substance at d/c from ED?: No Referrals: Andrés Sandoval DO [Primary Care Provider] - 1-2 days Keith Batres MD [STAFF PHYSICIAN] - 1-2 days Time of Disposition: 17:30
[2021-01-06 16:05] LABS: Partial Thromboplastin Time 23.4 sec (22.0-30.0); Prothrombin Time 10.4 sec (9.0-12.0)
[2021-01-06 16:15] LABS: ALT 12 U/L (4-49); AST 24 U/L (17-59); African American GFR (CKD) >90 (>60 ml/min/1.73 sqM); Albumin 4.1 g/dL (3.5-5.0); Alkaline Phosphatase 64 U/L (38-126); Amylase 36 U/L (30-110); Anion Gap 8 mmol/L; Blood Urea Nitrogen 12 mg/dL (9-20); Calcium 9.2 mg/dL (8.4-10.2); Carbon Dioxide 27 mmol/L (22-30); Chloride 102 mmol/L (98-107); Glucose 111 mg/dL (74-99); Lipase 51 U/L (23-300); Non-African American GFR(CKD) >90 (>60 ml/min/1.73 sqM); Potassium 4.3 mmol/L (3.5-5.1); Sodium 137 mmol/L (137-145); Total Bilirubin 0.3 mg/dL (0.2-1.3); Total Protein 6.8 g/dL (6.3-8.2)
[2021-01-06 17:03] VITALS: BP 177/89; PULSE 66; RESP 16
--- NOTE | 2021-01-06 17:08 | CT ---
EXAMINATION TYPE: CT abdomen pelvis w con DATE OF EXAM: 01/06/2021 COMPARISON: 12/30/2020 HISTORY: Abdominal pain at stoma site post surgery from 12/31/20. History of colon cancer. CT DLP: 733 mGycm Automated exposure control for dose reduction was used. CONTRAST: Performed with IV Contrast, patient injected with 100ml mL of Isovue 300. There is some dense calcification involving the diaphragmatic pleura at the right lung base. There is no pleural effusion. Heart size is normal. There is no pericardial effusion. Liver and gallbladder appear intact. The bile ducts are not dilated. There are numerous pancreatic ca lcifications. There are surgical clips around the stomach. Spleen is intact. There is no adrenal mass. Kidneys show satisfactory contrast opacification. There is no hydronephrosi s. I see no definite renal calculus. Ureters are not dilated. Delayed images show normal renal excret ion. Abdominal aorta is atheromatous. There is no retroperitoneal adenopathy. There is colostomy in t he left mid abdomen. There is some fat stranding around the colostomy. Bladder distends smoothly. The re is no inguinal hernia. There is no free fluid in the pelvis. There is no evidence of a bowel obstruction. Small bowel pattern is normal. Appendix appears normal. The lumbar vertebra have normal alignment. There is no compression fracture. Abdominal aorta is ather omatous. The bony pelvis is intact. The hip joints are intact. IMPRESSION: There is reduction of the prolapse of the colostomy compared to recent exam. There is some fat strand ing around the colostomy consistent with some postsurgical changes. No free air. No bowel obstruction. No evidence of an abscess.
[2021-01-06 17:17] LABS: Appearance,Urine Clear (Clear); Bilirubin,Urine Negative (Negative); Blood,Urine Negative (Negative); Color,Urine Colorless; Glucose,Urine (UA) Negative (Negative); Ketones,Urine Negative (Negative); Leukocyte Esterase,Urine Negative (Negative); Nitrite,Urine Negative (Negative); PH, Urine 6.5 (5.0-8.0); Protein,Urine Negative (Negative); Specific Gravity,Urine 1.012 (1.001-1.035); Urobilinogen,Urine <2.0 mg/dL (<2.0)
== END 2021-01-06 17:54 | disposition home or self-care (01) ==
LOC: EC 12:13
DX: R11.0 Nausea (principal); I10 Essential (primary) hypertension; E11.40 Type 2 diabetes mellitus with diabetic neuropathy, unspecified; K21.9 Gastro-esophageal reflux disease without esophagitis; Z79.84 Long term (current) use of oral hypoglycemic drugs; Z87.891 Personal history of nicotine dependence; Z85.038 Personal history of other malignant neoplasm of large intestine
CPT/HCPCS: 36415; 80053; 82150; 83605; 83690; 85025; 85610; 85730; 81003; 74177; 99284; 96374; 96361; J2270; Q9967

== ENCOUNTER 2023-08-05 22:20 | Emergency (ER) | payer MEDICARE, OTHER ==
[2023-08-05 22:32] VITALS: RESP 19; TEMP 97.5
--- NOTE | 2023-08-06 00:08 | XR ---
EXAM: XR Right Ribs, 2 Views CLINICAL HISTORY: ITS.REASON XR Reason: fall injury TECHNIQUE: Frontal and oblique views of the right ribs. COMPARISON: No relevant prior studies available. FINDINGS: Lungs: Unremarkable as visualized. No consolidation. Pleural space: RIGHT base pleural plaque, correlate for history of asbestos exposure. No pneumothorax. Bones/joints: Nondisplaced fracture of the RIGHT sixth rib. Other findings: ACDF. IMPRESSION: Nondisplaced fracture of the RIGHT sixth rib.
--- NOTE | 2023-08-06 00:21 | CT ---
EXAM: CT Head Without Intravenous Contrast CLINICAL HISTORY: ITS.REASON CT Reason: fall injury TECHNIQUE: Axial computed tomography images of the head/brain without intravenous contrast. CTDI is 45.2 mGy and DLP is 1139 mGy-cm. This CT exam was performed using one or more of the following dose reduction techniques: automated exposure control, adjustment of the mA and/or kV according to patient size, and/or use of iterative reconstruction technique. COMPARISON: No relevant prior studies available. FINDINGS: Brain: Remote ischemic injury within the left cerebellum. Remote ischemic injury of the right occipital lobe with encephalomalacia and gliosis. No hemorrhage. No significant white matter disease. No edema. Ventricles: Unremarkable. No ventriculomegaly. Bones/joints: Unremarkable. No acute fracture. Soft tissues: Mild soft tissue swelling about the right lateral scalp. Sinuses: Unremarkable as visualized. No acute sinusitis. Mastoid air cells: Unremarkable as visualized. No mastoid effusion. IMPRESSION: No evidence of acute intracranial pathology. EXAM: CT Cervical Spine Without Intravenous Contrast CLINICAL HISTORY: ITS.REASON CT Reason: fall injury TECHNIQUE: Axial computed tomography images of the cervical spine without intravenous contrast. CTDI is 9.7 mGy and DLP is 327.8 mGy-cm. This CT exam was performed using one or more of the following dose reduction techniques: automated exposure control, adjustment of the mA and/or kV according to patient size, and/or use of iterative reconstruction technique. COMPARISON: No relevant prior studies available. FINDINGS: Vertebrae: Status post anterior fusion of C5 and C6 with expected postsurgical changes. No acute fracture. Discs/spinal canal/neural foramina: No acute findings. No spinal canal stenosis. Soft tissues: Mild to moderate paraseptal emphysematous changes of the lung apices. IMPRESSION: No evidence of acute cervical spine pathology.
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
[2023-08-06] MEDS ORDERED: HYDROcodone/APAP 5-325MG 1 EACH TAB PO STA (02:05)
[2023-08-06 02:46] VITALS: BP 151/74; PULSE 71
== END 2023-08-06 02:39 | disposition home or self-care (01) ==
LOC: EC 22:20
DX: S22.31XA Fracture of one rib, right side, initial encounter for closed fracture (principal); E11.9 Type 2 diabetes mellitus without complications; I10 Essential (primary) hypertension; Z87.891 Personal history of nicotine dependence; Z79.84 Long term (current) use of oral hypoglycemic drugs; Z90.49 Acquired absence of other specified parts of digestive tract; V89.2XXA Person injured in unspecified motor-vehicle accident, traffic, initial encounter; Y93.55 Activity, bike riding
CPT/HCPCS: 70450; 72125; 99285

== ENCOUNTER 2024-02-13 20:18 | Emergency (ER) | payer MEDICARE, OTHER ==
[2024-02-13 21:02] VITALS: RESP 16; TEMP 97.8
--- NOTE | 2024-02-13 21:15 | ED ---
General Adult HPI - General Chief complaint: Skin/Abscess/Foreign Body Stated complaint: R hand injury-fish hook Time Seen by Provider: 02/13/24 21:12 Source: patient, RN notes reviewed Mode of arrival: ambulatory Limitations: no limitations - History of Present Illness Initial comments: 63-year-old male presenting to the ED with a chief complaint of foreign body. Patient states prior to arrival got a fishhook stuck in his right second finger. Reports his last tetanus shot was within 10 years. No other injuries at this time. - Related Data Home Medications Medication Instructions Recorded Confirmed metFORMIN HCL [Glucophage] 1,000 mg PO BID 12/19/14 01/06/21 Previous Rx's Medication Instructions Recorded Docusate [Colace] 100 mg PO BID #30 capsule 01/01/21 HYDROcodone/APAP 5-325MG [[place] 1 tab PO Q6HR PRN 3 Days #10 tab 01/01/21 5-325] lisinopriL [Zestril] 10 mg PO DAILY #30 tab 01/01/21 HYDROcodone/APAP 5-325MG [[place] 1 tab PO Q4HR PRN 3 Days #18 tab 08/06/23 5-325] Cephalexin [Keflex] 500 mg PO Q6HR 5 Days #20 cap 02/13/24 Allergies Allergy/AdvReac Type Severity Reaction Status Date / Time No Known Allergies Allergy Verified 02/13/24 20:23 Review of Systems ROS Statement: Those systems with pertinent positive or pertinent negative responses have been documented in the HPI. ROS Other: All systems not noted in ROS Statement are negative. Past Medical History Past Medical History: Cancer, Diabetes Mellitus, Eye Disorder, GERD/Reflux, Hearing Disorder / Deafness, Hypertension, Pneumonia Additional Past Medical History / Comment(s): NIDDM type II, neuropathy bilateral feet/R arm, colon cancer with surgery/colostomy/dumping syndrome, pancreatitis/pancreatic calcification/pseudocyst, cystic lesions L upper quadrant, anemia, chronic lumbar back pain, DDD, L eye retinal problem/affected peripheral vision, bilateral tinnitis, sinus problems, nephrolithiasis, past HTN. History of Any Multi-Drug Resistant Organisms: None Reported Past Surgical History: Orthopedic Surgery, Tonsillectomy Additional Past Surgical History / Comment(s): 1992 partial gastrectomy/small bowel resection d/t duodenal cyst, 2013 colon cancer with colectomy/ileostomy, cervical surgery with hardware, testicular surgery d/t injury, EGD, colonoscopy. Past Anesthesia/Blood Transfusion Reactions: No Reported Reaction Past Psychological History: No Psychological Hx Reported Smoking Status: Former smoker Past Alcohol Use History: None Reported Past Drug Use History: None Reported - Past Family History Father Family Medical History: Myocardial Infarction (NV) Additional Family Medical History / Comment(s): Father of a massive NV at the age of 73yrs. General Exam - General Exam Comments Initial Comments: Visual Physical Exam Vital signs reviewed General: Well-appearing, nontoxic, no acute distress. Head: Normocephalic, atraumatic Eyes: PERRLA, EOMI ENT: Airway patent Chest: Nonlabored breathing Skin: No visual rash, normal skin tone Neuro: Alert and oriented 3 Musculoskeletal: Bruno in right second finger. Limitations: no limitations Eye exam: Present: normal appearance Neck exam: Present: normal inspection Respiratory exam: Present: normal lung sounds bilaterally Cardiovascular Exam: Present: regular rate GI/Abdominal exam: Present: soft Extremities exam: Present: other (Bruno at the distal tip of his medial right second finger.) Neurological exam: Present: alert, oriented X3 Skin exam: Present: warm, dry Course Vital Signs 02/13/24 20:20 Temperature 97.8 F Pulse Rate 77 Respiratory 16 Rate Blood Pressure 154/72 O2 Sat by Pulse 98 Oximetry Procedures - Forgein Body Removal Soft Tissue Consent Obtained: verbal consent Site: hand Anesthetic Used: lidocaine 1%, without epi Amount (mLs): 3 (nerve block) Foreign Body Suspected: Fish Hook Foreign Body Removed: yes Foreign Body Removal Technique: Instrumentation Patient Tolerated Procedure: well, no complications Additional Comments: 1 cm incision made over the geronimo of the fishhook. Gentle pressure applied until fishhook successfully removed. Patient tolerated well with no complications. Medical Decision Making - Medical Decision Making Quicknote portion performed. Signed Aftab Kolb PA-C Was pt. sent in by a medical professional or institution ([facility] Andrade, FIRE SERVICES PLUMBER, urgent care, hospital, or halfway...) When possible be specific @ -No Did you speak to anyone other than the patient for history (EMS, parent, family, police, friend...)? What history was obtained from this source @ -No Did you review nursing and triage notes (agree or disagree)? Why? @ -I reviewed and agree with nursing and triage notes Were old charts reviewed (outside hosp., previous admission, EMS record, old EKG, old radiological studies, urgent care reports/EKG's, halfway records)? Report findings @ -No old charts were reviewed Differential Diagnosis (chest pain, altered mental status, abdominal pain women, abdominal pain men, vaginal bleeding, weakness, fever, dyspnea, syncope, headache, dizziness, GI bleed, back pain, seizure, CVA, palpatations, mental health, musculoskeletal)? @ -Differential Musculoskeletal Muscular strain, contusion, ligament sprain, fracture, arthritis, septic arthritis, bursitis, cellulitis, muscle spasm, nerve compression, DVT, arterial occlusion, herpes zoster, electrolyte abnormality, tumor.... This is not meant to be in all inclusive list EKG interpreted by me (3pts min.). @ -None X-rays interpreted by me (1pt min.). @ -None done CT interpreted by me (1pt min.). @ -None done U/S interpreted by me (1pt. min.). @ -None done What testing was considered but not performed or refused? (CT, X-rays, U/S, labs)? Why? @ -None What meds were considered but not given or refused? Why? @ -None Did you discuss the management of the patient with other professionals (professionals i.e. , PA, FIRE SERVICES PLUMBER, lab, RT, psych nurse, social sciences department chair, truss puller helper, teacher, environmental officer, protective services case worker)? Give summary @ -No Was smoking cessation discussed for >3mins.? @ -No Was critical care preformed (if so, how long)? @ -No Were there social determinants of health that impacted care today? How? (Homeles sness, low income, unemployed, alcoholism, drug addiction, transportation, low edu. Level, literacy, decrease access to med. care, [facility], rehab)? @ -No Was there de-escalation of care discussed even if they declined (Discuss DNR or withdrawal of care, Hospice)? DNR status @ -No What co-morbidities impacted this encounter? (DM, HTN, Smoking, COPD, CAD, Cancer, CVA, ARF, Chemo, Hep., AIDS, mental health diagnosis, sleep apnea, morbid obesity)? @ -None Was patient admitted / discharged? Hospital course, mention meds given and route, prescriptions, significant lab abnormalities, going to OR and other pertinent info. @ -Discharge 63-year-old male presenting to the ED after a new fishhook which has not been used yet accidentally became implanted into his right second finger after his reel fell. Tetanus status up-to-date. Bruno was removed. For further details see procedure note. Discharged home with starter pack and prescription for Keflex. Discussed return precautions with patient who verbalized agreement. Undiagnosed new problem with uncertain prognosis? @ -No Drug Therapy requiring intensive monitoring for toxicity (Heparin, Nitro, Insulin, Cardizem)? @ -No Were any procedures done? @ -Yes, foreign body removal Diagnosis/symptom? @ -Bruno, right second finger Acute, or Chronic, or Acute on Chronic? @ -Acute Uncomplicated (without systemic symptoms) or Complicated (systemic symptoms)? @ -Uncomplicated Side effects of treatment? @ -No Exacerbation, Progression, or Severe Exacerbation? @ -No Poses a threat to life or bodily function? How? (Chest pain, USA, NV, pneumonia, PE, COPD, DKA, ARF, appy, cholecystitis, CVA, Diverticulitis, Homicidal, Suicidal, threat to staff... and all critical care pts) @ -No Disposition Clinical Impression: Fish hook injury of finger Disposition: HOME SELF-CARE Condition: Good Additional Instructions: Please return to the Emergency Department if symptoms worsen or any other c oncerns. Take antibiotics as prescribed. Follow-up with your primary care provider. Monitor for signs of infection. Prescriptions: Cephalexin [Keflex] 500 mg PO Q6HR 5 Days #20 cap Is patient prescribed a controlled substance at d/c from ED?: No Referrals: [facility],Clinic [Primary Care Provider] - 1-2 days Time of Disposition: 22:52
[2024-02-13] MEDS: LIDOCAINE 1% INJ 10MG/ML (20 ML MDV) SQ ONE (21:43)
[2024-02-13] MEDS: BACITRACIN OINT 1 EACH PACKET TOPICAL ONE (22:53)
[2024-02-13] MEDS: CEPHALEXIN 500MG STARTER PACK 4 CAP BTL PO STA (22:53)
[2024-02-13 23:26] VITALS: BP 150/83; PULSE 67
== END 2024-02-13 23:00 | disposition home or self-care (01) ==
LOC: EC 20:18
DX: S60.450A Superficial foreign body of right index finger, initial encounter (principal); Z87.891 Personal history of nicotine dependence; W45.8XXA Other foreign body or object entering through skin, initial encounter
CPT/HCPCS: 10120; 99282; J2001

== ENCOUNTER 2024-03-29 08:44 | Emergency (ER) | payer MEDICARE, OTHER ==
[2024-03-29 08:50] VITALS: RESP 18
[2024-03-29] MEDS: BACITRACIN OINT 1 EACH PACKET TOPICAL ONE (09:24)
[2024-03-29] MEDS: LIDOCAINE 1% INJ 10MG/ML (20 ML MDV) SQ ONE (09:24)
[2024-03-29] MEDS: CLINDAMYCIN 150 MG CAP PO STA (09:25)
--- NOTE | 2024-03-29 09:27 | ED ---
Wound/Laceration HPI - General Chief Complaint: Wound/Laceration Stated Complaint: Right leg injury Time Seen by Provider: 03/29/24 08:50 Source: patient, RN notes reviewed Mode of arrival: wheelchair Limitations: no limitations - History of Present Illness Initial Comments: 63-year-old male presents emergency department chief complaint of right leg lace ration. Patient states that this happened at 7:30 PM last night he states that he caught it on a bumper. Patient states his tetanus is up-to-date. Patient denies any paresthesias. Patient states that he did just bandage and left alone. Patient offers no other associated symptoms. - Related Data Home Medications Medication Instructions Recorded Confirmed metFORMIN HCL [Glucophage] 1,000 mg PO BID 12/19/14 01/06/21 Previous Rx's Medication Instructions Recorded Docusate [Colace] 100 mg PO BID #30 capsule 01/01/21 HYDROcodone/APAP 5-325MG [[place] 1 tab PO Q6HR PRN 3 Days #10 tab 01/01/21 5-325] lisinopriL [Zestril] 10 mg PO DAILY #30 tab 01/01/21 HYDROcodone/APAP 5-325MG [[place] 1 tab PO Q4HR PRN 3 Days #18 tab 08/06/23 5-325] Cephalexin [Keflex] 500 mg PO Q6HR 5 Days #20 cap 02/13/24 clindamycin HCL 300 mg PO QID #40 cap 03/29/24 Allergies Allergy/AdvReac Type Severity Reaction Status Date / Time No Known Allergies Allergy Verified 02/13/24 20:23 Review of Systems ROS Statement: Those systems with pertinent positive or pertinent negative responses have been documented in the HPI. ROS Other: All systems not noted in ROS Statement are negative. Past Medical History Past Medical History: Cancer, Diabetes Mellitus, Eye Disorder, GERD/Reflux, Hearing Disorder / Deafness, Hypertension, Pneumonia Additional Past Medical History / Comment(s): NIDDM type II, neuropathy bilateral feet/R arm, colon cancer with surgery/colostomy/dumping syndrome, pancreatitis/pancreatic calcification/pseudocyst, cystic lesions L upper quadran t, anemia, chronic lumbar back pain, DDD, L eye retinal problem/affected peripheral vision, bilateral tinnitis, sinus problems, nephrolithiasis, past HTN. History of Any Multi-Drug Resistant Organisms: None Reported Past Surgical History: Orthopedic Surgery, Tonsillectomy Additional Past Surgical History / Comment(s): 1992 partial gastrectomy/small bowel resection d/t duodenal cyst, 2013 colon cancer with colectomy/ileostomy, cervical surgery with hardware, testicular surgery d/t injury, EGD, colonoscopy. Past Anesthesia/Blood Transfusion Reactions: No Reported Reaction Past Psychological History: No Psychological Hx Reported Smoking Status: Former smoker Past Alcohol Use History: None Reported Past Drug Use History: None Reported - Past Family History Father Family Medical History: Myocardial Infarction ([place]) Additional Family Medical History / Comment(s): Father of a massive [place] at the age of 73yrs. General Exam Limitations: no limitations General appearance: alert, in no apparent distress Head exam: Present: atraumatic, normocephalic, normal inspection Respiratory exam: Present: normal lung sounds bilaterally. Absent: respiratory distress, wheezes, rales, rhonchi, stridor Cardiovascular Exam: Present: regular rate, normal rhythm, normal heart sounds. Absent: systolic murmur, diastolic murmur, rubs, gallop, clicks Extremities exam: Present: other (Right anterior [place] there is a 27 cm laceration with foreign bodies noted) Course Vital Signs 03/29/24 08:47 Temperature 98.3 F Pulse Rate 77 Respiratory 18 Rate Blood Pressure 198/97 O2 Sat by Pulse 97 Oximetry Procedures - Laceration Laceration #1 Consent Obtained: verbal consent Indication: laceration Site: lower extremity (Right anterior [place]) Size (cm): 27 Description: irregular, contaminated, foreign body Depth: simple, single layer Anesthetic Used: lidocaine 1%, without epi Anesthesia Technique: local infiltration Amount (mls): 10 Pre-repair: wound explored, irrigated extensively (Saline and Betadine), foreign body removed, extreme cleansing Type of Sutures: other (Dermal temi) Number of Sutures: 19 ([place]) Patient Tolerated Procedure: well, no complications Medical Decision Making - Medical Decision Making Was pt. sent in by a medical professional or institution (, PA, PLATE MOLDER, urgent care, hospital, or jail...) When possible be specific @ -No Did you speak to anyone other than the patient for history (EMS, parent, family, police, friend...)? What history was obtained from this source @ -No Did you review nursing and triage notes (agree or disagree)? Why? @ -I reviewed and agree with nursing and triage notes Were old charts reviewed (outside hosp., previous admission, EMS record, old EKG, old radiological studies, urgent care reports/EKG's, jail records)? Report findings @ -No old charts were reviewed Differential Diagnosis (chest pain, altered mental status, abdominal pain women, abdominal pain men, vaginal bleeding, weakness, fever, dyspnea, syncope, headache, dizziness, GI bleed, back pain, seizure, CVA, palpatations, mental health, musculoskeletal)? @ -Laceration, foreign body, abrasion EKG interpreted by me (3pts min.). @ -None X-rays interpreted by me (1pt min.). @ -None done CT interpreted by me (1pt min.). @ -None done U/S interpreted by me (1pt. min.). @ -None done What testing was considered but not performed or refused? (CT, X-rays, U/S, labs)? Why? @ -None What meds were considered but not given or refused? Why? @ -None Did you discuss the management of the patient with other professionals (professionals i.e. , PA, PLATE MOLDER, lab, RT, psych nurse, bulb farmworker, oil changer, teacher, classifications officer cc/cm, cyanide case hardener)? Give summary @ -No Was smoking cessation discussed for >3mins.? @ -No Was critical care preformed (if so, how long)? @ -No Were there social determinants of health that impacted care today? How? (Homelessness, low income, unemployed, alcoholism, drug addiction, transportation, low edu. Level, literacy, decrease access to med. care, nursing home, rehab)? @ -No Was there de-escalation of care discussed even if they declined (Discuss DNR or withdrawal of care, Hospice)? DNR status @ -No What co-morbidities impacted this encounter? (DM, HTN, Smoking, COPD, CAD, Cancer, CVA, ARF, Chemo, Hep., AIDS, mental health diagnosis, sleep apnea, morbid obesity)? @ -None Was patient admitted / discharged? Hospital course, mention meds given and route, prescriptions, significant lab abnormalities, going to OR and other pertinent info. @ -Discharge after extensive irrigation and foreign body removal [place] were placed over laceration tetanus up-to-date patient was given first dose of oral antibiotics. Patient advised to have wound recheck in 24 to 48 hours, he is advised return for any drainage redness or any concerns for infection as his high risk. Undiagnosed new problem with uncertain prognosis? @ -No Drug Therapy requiring intensive monitoring for toxicity (Heparin, Nitro, Insulin, Cardizem)? @ -No Were any procedures done? @ -Laceration repair Diagnosis/symptom? @ -Right leg laceration Acute, or Chronic, or Acute on Chronic? @ -Acute Uncomplicated (without systemic symptoms) or Complicated (systemic symptoms)? @ -Complicated Side effects of treatment? @ -No Exacerbation, Progression, or Severe Exacerbation? @ -No Poses a threat to life or bodily function? How? (Chest pain, [place], [place], pneumonia, PE, COPD, DKA, ARF, appy, cholecystitis, CVA, Diverticulitis, Homicidal, Suicidal, threat to staff... and all critical care pts) @ -No Disposition Clinical Impression: Laceration of right lower leg Disposition: HOME SELF-CARE Condition: Stable Instructions (If sedation given, give patient instructions): Care For Your Stitches (DC), Staple Care (ED) Additional Instructions: Please return to the Emergency Department if symptoms worsen or any other concerns. Have temi removed in 14 days Prescriptions: clindamycin HCL 300 mg PO QID #40 cap Is patient prescribed a controlled substance at d/c from ED?: No Referrals: [facility],Clinic [Primary Care Provider] - 1-2 days Time of Disposition: 09:26
[2024-03-29 09:42] VITALS: BP 187/90; PULSE 76; TEMP 97.9
== END 2024-03-29 09:42 | disposition home or self-care (01) ==
LOC: EC 08:44
DX: S81.821A Laceration with foreign body, right lower leg, initial encounter (principal); Z87.891 Personal history of nicotine dependence; W26.8XXA Contact with other sharp object(s), not elsewhere classified, initial encounter
CPT/HCPCS: 12036; 99282; J2001

== ENCOUNTER 2024-04-16 09:20 | Emergency (ER) | payer MEDICARE, OTHER ==
[2024-04-16 09:26] VITALS: RESP 18
--- NOTE | 2024-04-16 09:42 | ED ---
Wound/Laceration HPI - General Chief Complaint: Wound/Laceration Stated Complaint: poss infection Time Seen by Provider: 04/16/24 09:30 Source: patient, RN notes reviewed Mode of arrival: ambulatory Limitations: no limitations - History of Present Illness Initial Comments: 63-year-old male presents emergency department complaint of wound recheck right leg. Patient had a large laceration that happened 18 days ago. Patient states he had temi removed. Patient states redness is nearly dissipated but states that he took a shower yesterday and saw some changes around the skin was concerned. He states is actually dried up and looking better today than it did yesterday. Patient denies any pain states it is slightly itchy at times. - Related Data Home Medications Medication Instructions Recorded Confirmed metFORMIN HCL [Glucophage] 1,000 mg PO BID 12/19/14 01/06/21 Previous Rx's Medication Instructions Recorded Docusate [Colace] 100 mg PO BID #30 capsule 01/01/21 HYDROcodone/APAP 5-325MG [[place] 1 tab PO Q6HR PRN 3 Days #10 tab 01/01/21 5-325] lisinopriL [Zestril] 10 mg PO DAILY #30 tab 01/01/21 HYDROcodone/APAP 5-325MG [[place] 1 tab PO Q4HR PRN 3 Days #18 tab 08/06/23 5-325] Cephalexin [Keflex] 500 mg PO Q6HR 5 Days #20 cap 02/13/24 clindamycin HCL 300 mg PO QID #40 cap 03/29/24 Allergies Allergy/AdvReac Type Severity Reaction Status Date / Time No Known Allergies Allergy Verified 04/16/24 09:26 Review of Systems ROS Statement: Those systems with pertinent positive or pertinent negative responses have been documented in the HPI. ROS Other: All systems not noted in ROS Statement are negative. Past Medical History Past Medical History: Cancer, Diabetes Mellitus, Eye Disorder, GERD/Reflux, Hearing Disorder / Deafness, Hypertension, Pneumonia Additional Past Medical History / Comment(s): NIDDM type II, neuropathy bilateral feet/R arm, colon cancer with surgery/colostomy/dumping syndrome, pancreatitis/pancreatic calcification/pseudocyst, cystic lesions L upper quadrant, anemia, chronic lumbar back pain, DDD, L eye retinal problem/affected peripheral vision, bilateral tinnitis, sinus problems, nephrolithiasis, past HTN. History of Any Multi-Drug Resistant Organisms: None Reported Past Surgical History: Orthopedic Surgery, Tonsillectomy Additional Past Surgical History / Comment(s): 1992 partial gastrectomy/small bowel resection d/t duodenal cyst, 2013 colon cancer with colectomy/ileostomy, cervical surgery with hardware, testicular surgery d/t injury, EGD, colonoscopy. Past Anesthesia/Blood Transfusion Reactions: No Reported Reaction Past Psychological History: No Psychological Hx Reported Smoking Status: Former smoker Past Alcohol Use History: Occasional Past Drug Use History: Marijuana - Past Family History Father Family Medical History: Myocardial Infarction ([place]) Additional Family Medical History / Comment(s): Father of a massive [place] at the age of 73yrs. General Exam Limitations: no limitations General appearance: alert, in no apparent distress Head exam: Present: atraumatic, normocephalic, normal inspection Respiratory exam: Present: normal lung sounds bilaterally. Absent: respiratory distress, wheezes, rales, rhonchi, stridor Cardiovascular Exam: Present: regular rate, normal rhythm, normal heart sounds. Absent: systolic murmur, diastolic murmur, rubs, gallop, clicks Extremities exam: Present: other (Right lower leg anterior surface there is a healing whole laceration with only minimal erythema at the border edges no purulent drainage) Course Vital Signs 04/16/24 09:23 Temperature 97.7 F Pulse Rate 69 Respiratory 18 Rate Blood Pressure 179/91 O2 Sat by Pulse 99 Oximetry Medical Decision Making - Medical Decision Making Was pt. sent in by a medical professional or institution (, PA, DRAWBRIDGE TENDER, urgent care, hospital, or snf...) When possible be specific @ -No Did you speak to anyone other than the patient for history (EMS, parent, family, police, friend...)? What history was obtained from this source @ -No Did you review nursing and triage notes (agree or disagree)? Why? @ -I reviewed and agree with nursing and triage notes Were old charts reviewed (outside hosp., previous admission, EMS record, old EKG, old radiological studies, urgent care reports/EKG's, snf records)? Report findings @ -No old charts were reviewed Differential Diagnosis (chest pain, altered mental status, abdominal pain women, abdominal pain men, vaginal bleeding, weakness, fever, dyspnea, syncope, headache, dizziness, GI bleed, back pain, seizure, CVA, palpatations, mental health, musculoskeletal)? @ -Wound recheck, cellulitis EKG interpreted by me (3pts min.). @ -[None X-rays interpreted by me (1pt min.). @ -None done CT interpreted by me (1pt min.). @ -None done U/S interpreted by me (1pt. min.). @ -None done What testing was considered but not performed or refused? (CT, X-rays, U/S, labs)? Why? @ -None What meds were considered but not given or refused? Why? @ -None Did you discuss the management of the patient with other professionals (professionals i.e. DrMemo, PA, DRAWBRIDGE TENDER, lab, RT, psych nurse, social services director, cotton classer aide, teacher, deportation officer, family service caseworker)? Give summary @ -No Was smoking cessation discussed for >3mins.? @ -No Was critical care preformed (if so, how long)? @ -No Were there social determinants of health that impacted care today? How? (Homelessness, low income, unemployed, alcoholism, drug addiction, transportation, low edu. Level, literacy, decrease access to med. care, residential, rehab)? @ -No Was there de-escalation of care discussed even if they declined (Discuss DNR or withdrawal of care, Hospice)? DNR status @ -No What co-morbidities impacted this encounter? (DM, HTN, Smoking, COPD, CAD, Cancer, CVA, ARF, Chemo, Hep., AIDS, mental health diagnosis, sleep apnea, morbid obesity)? @ -None Was patient admitted / discharged? Hospital course, mention meds given and route, prescriptions, significant lab abnormalities, going to OR and other pertinent info. @ -Discharge patient wound was examined there is no purulent drainage no abscess there is well-healing borders. Patient will continue wound care and return for as discussed Undiagnosed new problem with uncertain prognosis? @ -No Drug Therapy requiring intensive monitoring for toxicity (Heparin, Nitro, Insulin, Cardizem)? @ -No Were any procedures done? @ -No Diagnosis/symptom? @ -Encounter for laceration wound recheck Acute, or Chronic, or Acute on Chronic? @ -Acute Uncomplicated (without systemic symptoms) or Complicated (systemic symptoms)? @ -Uncomplicated Side effects of treatment? @ -No Exacerbation, Progression, or Severe Exacerbation? @ -No Poses a threat to life or bodily function? How? (Chest pain, [place], [place], pneumonia, PE, COPD, DKA, ARF, appy, cholecystitis, CVA, Diverticulitis, Homicidal, Suicidal, threat to staff... and all critical care pts) @ -No Disposition Clinical Impression: Encounter for re-check of laceration wound Disposition: HOME SELF-CARE Condition: Stable Instructions (If sedation given, give patient instructions): Acute Wounds (ED) Additional Instructions: Please return to the Emergency Department if symptoms worsen or any other concerns. Is patient prescribed a controlled substance at d/c from ED?: No Referrals: [facility],Clinic [Primary Care Provider] - 1-2 days Time of Disposition: 09:42
[2024-04-16 09:51] VITALS: BP 168/86; PULSE 72; TEMP 97.9
== END 2024-04-16 10:09 | disposition home or self-care (01) ==
LOC: EC 09:20
DX: S81.811A Laceration without foreign body, right lower leg, initial encounter (principal); Z87.891 Personal history of nicotine dependence; X58.XXXA Exposure to other specified factors, initial encounter
CPT/HCPCS: 99282

== ENCOUNTER 2024-06-09 10:34 | Inpatient (IN) | payer MEDICARE, OTHER ==
[2024-06-09 11:02] LABS: Basophils # (A) 0.1 k/uL (0-0.2); Basophils % (A) 1 %; Eosinophils # (A) 0.1 k/uL (0-0.7); Eosinophils % (A) 2 %; HCT 43.4 % (39.0-53.0); Lymphocytes # (A) 0.9 k/uL (1.0-4.8); Lymphocytes % (A) 10 %; MCH 34.4 pg (25.0-35.0); MCHC 34.5 g/dL (31.0-37.0); MCV 99.8 fL (80.0-100.0); Mean Platelet Volume 7.4; Monocytes % (A) 12 %; Neutrophils # (A) 6.6 k/uL (1.3-7.7); Neutrophils % (A) 74 %; Platelet Count 304 k/uL (150-450); RBC 4.35 m/uL (4.30-5.90); RDW 13.8 % (11.5-15.5); WBC 8.9 k/uL (3.8-10.6)
--- NOTE | 2024-06-09 11:06 | ED ---
Recheck HPI - General Chief Complaint: Recheck/Abnormal Lab/Rx Stated Complaint: GARRETT,Weakness Time Seen by Provider: 06/09/24 10:50 Source: patient, RN notes reviewed Mode of arrival: ambulatory Limitations: no limitations - History of Present Illness Initial Comments: 63-year-old male with a history of type 2 diabetes hypertension presents emergency department chief complaint of abnormal labs. Patient states that he had blood work drawn by the [facility], his primary care provider, on 24 May. Patient states that he got a letter in the mail and was told that he had elevated potassium. Patient has had over the past few weeks he has been experiencing muscle cramps, weakness and intermittent chest tightness. He denies history of chronic kidney disease, MO, CVA, DVT or PE. Patient states that he only took his metformin and lisinopril medications this morning. Patient is on metformin, amlodipine, lisinopril, omeprazole, and glipizide. - Related Data Home Medications Medication Instructions Recorded Confirmed metFORMIN HCL [Glucophage] 1,000 mg PO BID 12/19/14 06/09/24 Omeprazole [PriLOSEC] 20 mg PO DAILY 06/09/24 06/09/24 amLODIPine [Norvasc] 5 mg PO DAILY 06/09/24 06/09/24 glipiZIDE [Glucotrol] 5 mg PO DAILY 06/09/24 06/09/24 lisinopriL [Zestril] 20 mg PO DAILY 06/09/24 06/09/24 Allergies Allergy/AdvReac Type Severity Reaction Status Date / Time No Known Allergies Allergy Verified 06/09/24 11:56 Review of Systems ROS Statement: Those systems with pertinent positive or pertinent negative responses have been documented in the HPI. ROS Other: All systems not noted in ROS Statement are negative. Past Medical History Past Medical History: Cancer, Diabetes Mellitus, Eye Disorder, GERD/Reflux, Hearing Disorder / Deafness, Hypertension, Pneumonia Additional Past Medical History / Comment(s): NIDDM type II, neuropathy bilateral feet/R arm, colon cancer with surgery/colostomy/dumping syndrome, pancreatitis/pancreatic calcification/pseudocyst, cystic lesions L upper quadrant, anemia, chronic lumbar back pain, DDD, L eye retinal problem/affected peripheral vision, bilateral tinnitis, sinus problems, nephrolithiasis, past HTN. History of Any Multi-Drug Resistant Organisms: None Reported Past Surgical History: Orthopedic Surgery, Tonsillectomy Additional Past Surgical History / Comment(s): 1992 partial gastrectomy/small bowel resection d/t duodenal cyst, 2013 colon cancer with colectomy/ileostomy, cervical surgery with hardware, testicular surgery d/t injury, EGD, colonoscopy. Past Anesthesia/Blood Transfusion Reactions: No Reported Reaction Past Psychological History: No Psychological Hx Reported Smoking Status: Former smoker Past Alcohol Use History: Occasional Past Drug Use History: Marijuana - Past Family History Father Family Medical History: Myocardial Infarction (MO) Additional Family Medical History / Comment(s): Father of a massive MO at the age of 73yrs. General Exam Limitations: no limitations Head exam: Present: atraumatic, normocephalic, normal inspection ENT exam: Present: normal exam, mucous membranes dry Neck exam: Present: normal inspection. Absent: tenderness, meningismus, lymphadenopathy Respiratory exam: Present: normal lung sounds bilaterally. Absent: respiratory distress, wheezes, rales, rhonchi, stridor Cardiovascular Exam: Present: regular rate, normal rhythm, normal heart sounds. Absent: systolic murmur, diastolic murmur, rubs, gallop, clicks GI/Abdominal exam: Present: soft, normal bowel sounds. Absent: distended, tenderness, guarding, rebound, rigid Extremities exam: Present: normal inspection, full ROM, normal capillary refill. Absent: tenderness, pedal edema, joint swelling, calf tenderness Back exam: Present: normal inspection Neurological exam: Present: alert, oriented X3, CN II-XII intact Skin exam: Present: warm, dry Course Vital Signs 06/09/24 06/09/24 10:38 11:56 Temperature 97.6 F Pulse Rate 92 76 Respiratory 20 18 Rate Blood Pressure 233/87 165/80 O2 Sat by Pulse 99 Oximetry Medical Decision Making - Medical Decision Making Was pt. sent in by a medical professional or institution (, PA, CREATIVE WRITING TEACHER, urgent care, hospital, or jail...) When possible be specific @ -Patient was sent in by primary care provider with a elevated potassium level. On previous lab work Did you speak to anyone other than the patient for history (EMS, parent, family, police, friend...)? What history was obtained from this source @ -No Did you review nursing and triage notes (agree or disagree)? Why? @ -I reviewed and agree with nursing and triage notes Were old charts reviewed (outside hosp., previous admission, EMS record, old EKG, old radiological studies, urgent care reports/EKG's, jail records)? Report findings @ -No old charts were reviewed Differential Diagnosis (chest pain, altered mental status, abdominal pain women, abdominal pain men, vaginal bleeding, weakness, fever, dyspnea, syncope, headache, dizziness, GI bleed, back pain, seizure, CVA, palpatations, mental health, musculoskeletal)? @ -Differential Weakness: Hypoglycemia, shock, sepsis, hyponatremia, anemia, infection, MO, ETOH, adverse medicine reaction, overdose, stroke, this is not meant to be an all-inclusive list. EKG interpreted by me (3pts min.). @ -EKG completed at 1049 with sinus rhythm, ventricular rate of 83, HI interval 176, QTc 423. No acute signs of ischemia X-rays interpreted by me (1pt min.). @ -None done CT interpreted by me (1pt min.). @ -None done U/S interpreted by me (1pt. min.). @ -None done What testing was considered but not performed or refused? (CT, X-rays, U/S, labs)? Why? @ -None What meds were considered but not given or refused? Why? @ -None Did you discuss the management of the patient with other professionals (professionals i.e. , PA, CREATIVE WRITING TEACHER, lab, RT, psych nurse, social media designer, seafood manager, teacher, agricultural extension officer, medical case manager)? Give summary @ -I spoke with sound internal medicine physician, Dr. Perez, regard to the patient's presentation with muscle weakness and hyponatremia. Patient is excepted for admission with gentle IV fluid resuscitation Was smoking cessation discussed for >3mins.? @ -No Was critical care preformed (if so, how long)? @ -No Were there social determinants of health that impacted care today? How? (Homelessness, low income, unemployed, alcoholism, drug addiction, transportation, low edu. Level, literacy, decrease access to med. care, senior care, rehab)? @ -No Was there de-escalation of care discussed even if they declined (Discuss DNR or withdrawal of care, Hospice)? DNR status @ -No What co-morbidities impacted this encounter? (DM, HTN, Smoking, COPD, CAD, Cancer, CVA, ARF, Chemo, Hep., AIDS, mental health diagnosis, sleep apnea, morbid obesity)? @ -diabetes mellitus, hypertension Was patient admitted / discharged? Hospital course, mention meds given and route, prescriptions, significant lab abnormalities, going to OR and other pertinent info. @ -admitted. 63-year-old male with muscle weakness abnormal labs. On examination patient's initial blood pressure is hypertensive with 233/87 heart rate of 92, afebrile states the he only took his one antihypertensive this morning. Physical examination benign with no acute neurological deficits. EKG sinus rhythm. Patient does show signs of clinical dehydration with dry mucous membranes. Unremarkable, CMP reveals hyponatremia of 125, and from chloride of 84, transaminitis with AST of 214, ALT 15 alk phos 174. repeat BP 165/80. With laboratory findings patient is provided with a liter fluid bolus and will be admitted to internal medicine for gentle fluid rehydration. Urine sodium ordered. Discussed with Dr. Sahu Undiagnosed new problem with uncertain prognosis? @ -No Drug Therapy requiring intensive monitoring for toxicity (Heparin, Nitro, Insulin, Cardizem)? @ -No Were any procedures done? @ -No Diagnosis/symptom? @ -Hyponatremia, weakness Acute, or Chronic, or Acute on Chronic? @ -Acute Uncomplicated (without systemic symptoms) or Complicated (systemic symptoms)? @ -Uncomplicated Side effects of treatment? @ -No Exacerbation, Progression, or Severe Exacerbation? @ -No Poses a threat to life or bodily function? How? (Chest pain, USA, MO, pneumonia, PE, COPD, DKA, ARF, appy, cholecystitis, CVA, Diverticulitis, Homicidal, Suicidal, threat to staff... and all critical care pts) @ -No - Lab Data Result diagrams: 06/09/24 10:55 06/09/24 10:55 Lab Results 06/09/24 06/09/24 06/09/24 Range/Units 10:55 10:55 10:55 WBC 8.9 (3.8-10.6) k/uL RBC 4.35 (4.30-5.90) m/uL Hgb 15.0 (13.0-17.5) gm/dL Hct 43.4 (39.0-53.0) % MCV 99.8 (80.0-100.0) fL MCH 34.4 (25.0-35.0) pg MCHC 34.5 (31.0-37.0) g/dL RDW 13.8 (11.5-15.5) % Plt Count 304 (150-450) k/uL MPV 7.4 Neutrophils % 74 % Lymphocytes % 10 % Monocytes % 12 % Eosinophils % 2 % Basophils % 1 % Neutrophils # 6.6 (1.3-7.7) k/uL Lymphocytes # 0.9 L (1.0-4.8) k/uL Monocytes # 1.0 (0-1.0) k/uL Eosinophils # 0.1 (0-0.7) k/uL Basophils # 0.1 (0-0.2) k/uL Sodium 125 L (137-145) mmol/L Potassium 5.1 (3.5-5.1) mmol/L Chloride 84 L (98-107) mmol/L Carbon Dioxide 25 (22-30) mmol/L Anion Gap 16 mmol/L BUN 11 (9-20) mg/dL Creatinine 0.96 (0.66-1.25) mg/dL Est GFR (CKD-EPI)AfAm >90 (>60 ml/min/1.73 sqM) Est GFR (CKD-EPI)NonAf 85 (>60 ml/min/1.73 sqM) Glucose 162 H (74-99) mg/dL POC Glucose (mg/dL) (70-110) mg/dL POC Glu [employer] Makeup Artist ID Calcium 10.0 (8.4-10.2) mg/dL Magnesium 1.7 (1.6-2.3) mg/dL Total Bilirubin 1.1 (0.2-1.3) mg/dL AST 214 H (17-59) U/L ALT 58 H (4-49) U/L Alkaline Phosphatase 174 H (38-126) U/L Total Protein 7.5 (6.3-8.2) g/dL Albumin 4.9 (3.5-5.0) g/dL 06/09/24 Range/Units 11:32 WBC (3.8-10.6) k/uL RBC (4.30-5.90) m/uL Hgb (13.0-17.5) gm/dL Hct (39.0-53.0) % MCV (80.0-100.0) fL MCH (25.0-35.0) pg MCHC (31.0-37.0) g/dL RDW (11.5-15.5) % Plt Count (150-450) k/uL MPV Neutrophils % % Lymphocytes % % Monocytes % % Eosinophils % % Basophils % % Neutrophils # (1.3-7.7) k/uL Lymphocytes # (1.0-4.8) k/uL Monocytes # (0-1.0) k/uL Eosinophils # (0-0.7) k/uL Basophils # (0-0.2) k/uL Sodium (137-145) mmol/L Potassium (3.5-5.1) mmol/L Chloride (98-107) mmol/L Carbon Dioxide (22-30) mmol/L Anion Gap mmol/L BUN (9-20) mg/dL Creatinine (0.66-1.25) mg/dL Est GFR (CKD-EPI)AfAm (>60 ml/min/1.73 sqM) Est GFR (CKD-EPI)NonAf (>60 ml/min/1.73 sqM) Glucose (74-99) mg/dL POC Glucose (mg/dL) 168 H (70-110) mg/dL POC Glu [employer] Makeup Artist ID Veena Abdul Calcium (8.4-10.2) mg/dL Magnesium (1.6-2.3) mg/dL Total Bilirubin (0.2-1.3) mg/dL AST (17-59) U/L ALT (4-49) U/L Alkaline Phosphatase (38-126) U/L Total Protein (6.3-8.2) g/dL Albumin (3.5-5.0) g/dL Disposition Clinical Impression: Hyponatremia, Weakness Disposition: ADMITTED IP TO THIS HOSP Condition: Stable Is patient prescribed a controlled substance at d/c from ED?: No Referrals: [facility],Clinic [Primary Care Provider] - 1-2 days Decision to Admit Reason: Admit from EC Decision Date: 06/09/24 Decision Time: 12:03
[2024-06-09 11:30] LABS: ALT 58 U/L (4-49); AST 214 U/L (17-59); African American GFR (CKD) >90 (>60 ml/min/1.73 sqM); Albumin 4.9 g/dL (3.5-5.0); Alkaline Phosphatase 174 U/L (38-126); Anion Gap 16 mmol/L; Blood Urea Nitrogen 11 mg/dL (9-20); Carbon Dioxide 25 mmol/L (22-30); Chloride 84 mmol/L (98-107); Glucose 162 mg/dL (74-99); Non-African American GFR(CKD) 85 (>60 ml/min/1.73 sqM); Potassium 5.1 mmol/L (3.5-5.1); Sodium 125 mmol/L (137-145); Total Bilirubin 1.1 mg/dL (0.2-1.3); Total Protein 7.5 g/dL (6.3-8.2)
[2024-06-09 11:35] LABS: Glucose,Whole Blood 168 mg/dL (70-110)
[2024-06-09 11:57] VITALS: RESP 18
[2024-06-09] MEDS ORDERED: NALOXONE 0.4 MG/ML 1 ML VIAL IV PRN ×2 (12:03→13:06)
[2024-06-09] MEDS ORDERED: ACETAMINOPHEN TAB 325 MG TAB PO PRN (12:03)
[2024-06-09] MEDS: SODIUM CHLORIDE 0.9% 1,000 ML IV STA (12:07)
[2024-06-09] MEDS ORDERED: ONDANSETRON 4 MG/2 ML VIAL IVP PRN (13:06)
[2024-06-09] MEDS ORDERED: IOPAMIDOL CONTRAST (ORAL USE) VIAL PO PRN (13:11)
--- NOTE | 2024-06-09 13:24 | P.HPIM ---
History of Present Illness H&P Date: 06/09/24 Chief Complaint: abnormal labs 63-year-old male with a history of type 2 diabetes, hypertension, rectal cancer with bowel resection and colostomy in 2013 at [facility] by Dr. Dye, gastrectomy and small bowel resection in 1992 due to cyst on his duodenum presents to the emergency department with chief complaint of abnormal labs. Patient states that he had blood work drawn by the [facility], his primary care provider, on 24 May, states had high K up to 6. Patient states that over the past few weeks he has been experiencing increasing abdominal pain, nausea, bilateral legs muscle cramps, weakness and intermittent chest tightness. Denies vomiting. Has chills but no fevers. States he normally empties the colostomy bag 6 times a day due to dumping syndrome. In the ER Na was 125, K 5.1, has elevated liver enzymes. He was admitted for further evaluation and management. Review of Systems complete review of system performed pertinent positives per HpI otherwise negative. Past Medical History Past Medical History: Cancer, Diabetes Mellitus, Eye Disorder, GERD/Reflux, Hearing Disorder / Deafness, Hypertension, Pneumonia Additional Past Medical History / Comment(s): NIDDM type II, neuropathy bilateral feet/R arm, colon cancer with surgery/colostomy/dumping syndrome, pa ncreatitis/pancreatic calcification/pseudocyst, cystic lesions L upper quadrant, anemia, chronic lumbar back pain, DDD, L eye retinal problem/affected peripheral vision, bilateral tinnitis, sinus problems, nephrolithiasis, past HTN. History of Any Multi-Drug Resistant Organisms: None Reported Past Surgical History: Orthopedic Surgery, Tonsillectomy Additional Past Surgical History / Comment(s): 1992 partial gastrectomy/small bowel resection d/t duodenal cyst, 2013 colon cancer with colectomy/ileostomy, cervical surgery with hardware, testicular surgery d/t injury, EGD, colonoscopy. Past Anesthesia/Blood Transfusion Reactions: No Reported Reaction Past Psychological History: No Psychological Hx Reported Smoking Status: Former smoker Past Alcohol Use History: Occasional Past Drug Use History: Marijuana - Past Family History Father Family Medical History: Myocardial Infarction (MA) Additional Family Medical History / Comment(s): Father of a massive MA at the age of 73yrs. Medications and Allergies Home Medications Medication Instructions Recorded Confirmed Type metFORMIN HCL [Glucophage] 1,000 mg PO BID 12/19/14 06/09/24 History Omeprazole [PriLOSEC] 20 mg PO DAILY 06/09/24 06/09/24 History amLODIPine [Norvasc] 5 mg PO DAILY 06/09/24 06/09/24 History glipiZIDE [Glucotrol] 5 mg PO DAILY 06/09/24 06/09/24 History lisinopriL [Zestril] 20 mg PO DAILY 06/09/24 06/09/24 History Allergies Allergy/AdvReac Type Severity Reaction Status Date / Time No Known Allergies Allergy Verified 06/09/24 11:56 Physical Exam Vitals: Vital Signs Temp Pulse Resp BP Pulse Ox 06/09/24 11:56 76 18 165/80 06/09/24 10:38 97.6 F 92 20 233/87 99 Intake and Output 06/08/24 06/09/24 06/09/24 22:59 06:59 14:59 Other: Weight 68.039 kg Constitutional: No acute distress, conversant, pleasant Eyes:Anicteric sclerae, moist conjunctiva, no lid-lag, PERRLA, ENMT: Oropharynx clear, no erythema, exudates Neck: Supple, FROM, no masses, or JVD, No carotid bruits, No thyromegaly Lungs: Clear to auscultation, Clear to percussion, Normal respiratory effort, no accessory muscle use Cardiovascular: Heart regular in rate and rhythm, No murmurs, gallops, or rubs, No peripheral edema Abdominal: +colostomy bag. Soft, Nontender, no guarding, rebound or rigidity, Normoactive bowel sounds, No hepatomegaly, No splenomegaly, No palpable mass Skin: Normal temperature, tone, texture, turgor, no induration, No subcutaneous nodules, No rash, lesions, No ulcers Extremities: No digital cyanosis, No clubbing, Pedal pulses intact and symmetrical, Radial pulses intact and symmetrical, No calf tenderness Psychiatric: Alert and oriented to person, place and time, appropriate affect, intact judgement Neuro: Muscles Strength 5/5 in all 4 extremities, Sensation to light touch grossly present throughout, Cranial nerves II-XII grossly intact, no focal sensory deficits Results CBC & Chem 7: 06/09/24 10:55 06/09/24 10:55 Labs: Abnormal Lab Results - Last 24 Hours (Table) 06/09/24 06/09/2424 Range/Units 10:55 10:55 11:32 Lymphocytes # 0.9 L (1.0-4.8) k/uL Sodium 125 L (137-145) mmol/L Chloride 84 L (98-107) mmol/L Glucose 162 H (74-99) mg/dL POC Glucose (mg/dL) 168 H (70-110) mg/dL AST 214 H (17-59) U/L ALT 58 H (4-49) U/L Alkaline Phosphatase 174 H (38-126) U/L Assessment and Plan Plan: Hyponatremia: Could be dehydration due to GI losses Check urine and plasma osmolalities, urine Na IV fluids Check Na in am Hyperkalemia Hold lisinopril Recheck in am Abdominal pain Transaminitis Hx of rectal cancer with bowel resection and colostomy in 2013 at [facility] by Dr. Dye Hx of gastrectomy and small bowel resection in 1992 due to cyst on his duodenum Trend LFTs CT abd and pelvis Consult surgery Diabetes 2 SSI Hold orals HTN hold lisinopril but continue norvasc Admit to inpatient expected length of stay more than 2 midnights.
--- NOTE | 2024-06-09 14:04 | CT ---
EXAMINATION TYPE: CT abdomen pelvis w con CT DLP: 623.6 mGycm, Automated exposure control for dose reduction was used. DATE OF EXAM: 06/09/2024 1:41 PM COMPARISON: CT abdomen pelvis most recent from 01/06/2021 CLINICAL INDICATION: Male, 63 years old with history of abd pian hx of colostomy; abd pain at colosto my site x2 weeks TECHNIQUE: Axial CT abdomen pelvis w con;Sagittal and coronal reformats were created on a separate w orkstation. Contrast used:100 mL of Isovue 300 with IV Contrast, (none if empty) Oral contrast used: without Oral Contrast (none if empty) FINDINGS: LOWER CHEST: Calcifications along the pleura above the liver. ABDOMEN LIVER: Diffuse low-attenuation to the liver parenchyma. GALLBLADDER AND BILE DUCTS: Unremarkable. PANCREAS: Evidence of chronic pancreatitis with scattered calcifications.. SPLEEN: Unremarkable. ADRENAL GLANDS: Unremarkable. KIDNEYS AND URETERS: No evidence of hydronephrosis or renal calculus. The ureters are unremarkable. Scattered probable benign cyst. PELVIS BLADDER: Unremarkable REPRODUCTIVE: Unremarkable. ABDOMEN & PELVIS STOMACH AND BOWEL: No evidence of bowel obstruction. Postsurgical changes in the gastric lumen and cardoza rgical clips along the distal esophagus. PERITONEUM/RETROPERITONEUM: No evidence of pneumoperitoneum or free fluid. 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 MUSCULOSKELETAL: No acute osseous abnormalities LYMPH NODES: No gross evidence for lymphadenopathy. SOFT TISSUE/ABDOMINAL WALL: Postsurgical changes anterior abdominal wall with hernia mesh anchors. Left lower quadrant ostomy without evidence for hernia. IMPRESSION: 1. Left lower quadrant ostomy without evidence for hernia. No organizing fluid collection or evidenc e of acute complication at the site. 2. 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 3. Postsurgical changes to the gastric lumen. 4. Post hernia repair changes with anchors along the anterior abdominal wall. 5. Chronic pancreatitis changes. 6. Pleural calcification along the right diaphragm. Correlate for history of asbestos exposure. 7. Hepatic steatosis. [facility], Workstation [id number], 06/09/2024 2:02 PM
[2024-06-09] MEDS: SODIUM CHLORIDE 0.9% 1,000 ML IV SCH (16:02)
[2024-06-09] MEDS ORDERED: metFORMIN 500 MG TAB PO SCH (17:30)
[2024-06-09] MEDS: hydrALAZINE HCL 25 MG TAB PO STA (19:03)
[2024-06-09] MEDS: INSULIN ASPART (NovoLOG) 100 UNIT/ML VIAL SQ SCH (19:33)
[2024-06-09 21:37] LABS: Glucose,Whole Blood 260 mg/dL (70-110)
[2024-06-09] MEDS: IBUPROFEN 400 MG TAB PO PRN (21:59)
[2024-06-10] MEDS: cloNIDine HCL 0.2 MG TAB PO STA (02:49)
[2024-06-10 05:52] LABS: Glucose,Whole Blood 126 mg/dL (70-110)
[2024-06-10] MEDS: PANTOPRAZOLE 40 MG TABLET PO SCH (06:32)
[2024-06-10 07:37] LABS: Basophils # (A) 0.1 k/uL (0-0.2); Basophils % (A) 1 %; Eosinophils % (A) 1 %; HCT 39.9 % (39.0-53.0); HGB 13.5 gm/dL (13.0-17.5); Lymphocytes # (A) 0.6 k/uL (1.0-4.8); Lymphocytes % (A) 11 %; MCH 34.7 pg (25.0-35.0); MCV 102.1 fL (80.0-100.0); Macrocytosis Slight; Mean Platelet Volume 7.4; Monocytes # (A) 0.9 k/uL (0-1.0); Monocytes % (A) 16 %; Neutrophils # (A) 3.9 k/uL (1.3-7.7); Neutrophils % (A) 69 %; Platelet Count 265 k/uL (150-450); RBC 3.91 m/uL (4.30-5.90); RDW 13.6 % (11.5-15.5); WBC 5.6 k/uL (3.8-10.6)
[2024-06-10 07:39] LABS: ALT 49 U/L (4-49); AST 118 U/L (17-59); African American GFR (CKD) >90 (>60 ml/min/1.73 sqM); Albumin/Globulin Ratio 1.7; Alkaline Phosphatase 139 U/L (38-126); Anion Gap 10 mmol/L; Blood Urea Nitrogen 11 mg/dL (9-20); Calcium 9.2 mg/dL (8.4-10.2); Carbon Dioxide 28 mmol/L (22-30); Chloride 92 mmol/L (98-107); Globulin 2.4 g/dL; Glucose 139 mg/dL (74-99); Non-African American GFR(CKD) >90 (>60 ml/min/1.73 sqM); Potassium 4.3 mmol/L (3.5-5.1); Sodium 130 mmol/L (137-145); Total Bilirubin 0.6 mg/dL (0.2-1.3); Total Protein 6.4 g/dL (6.3-8.2)
[2024-06-10] MEDS: amLODIPine 5 MG TAB PO SCH (07:54)
[2024-06-10] MEDS ORDERED: lisinopriL 20 MG TAB PO SCH (09:00)
[2024-06-10] MEDS ORDERED: glipiZIDE 5 MG TAB PO SCH (09:00)
--- NOTE | 2024-06-10 09:45 | P.GSCN ---
History of Present Illness Consult date: 06/10/24 Reason for Consult: Abdominal pain History of present illness: This is a 63-year-old male with extensive surgical history. Patient had some co mplaints of some mild abdominal pain. Patient states he had some high pain yesterday. However the pain is completely resolved today. He denies any pain today. Past Medical History Past Medical History: Cancer, Diabetes Mellitus, Eye Disorder, GERD/Reflux, H earing Disorder / Deafness, Hypertension, Pneumonia Additional Past Medical History / Comment(s): NIDDM type II, neuropathy bilateral feet/R arm, colon cancer with surgery/colostomy/dumping syndrome, pancreatitis/pancreatic calcification/pseudocyst, cystic lesions L upper qu adrant, anemia, chronic lumbar back pain, DDD, L eye retinal problem/affected peripheral vision, bilateral tinnitis, sinus problems, nephrolithiasis, past HTN. History of Any Multi-Drug Resistant Organisms: None Reported Past Surgical History: Orthopedic Surgery, Tonsillectomy Additional Past Surgical History / Comment(s): 1992 partial gastrectomy/small bowel resection d/t duodenal cyst, 2013 colon cancer with colectomy/ileostomy, cervical surgery with hardware, testicular surgery d/t injury, EGD, colonoscopy. Past Anesthesia/Blood Transfusion Reactions: No Reported Reaction Past Psychological History: No Psychological Hx Reported Additional Psychological History / Comment(s): Pt resides at [facility] at this time. He uses a cane rarely. He does not have a license, his sister or friends take him to appts. He is wearing a tether. Smoking Status: Former smoker Past Alcohol Use History: Occasional Additional Past Alcohol Use History / Comment(s): Pt started smoking in 1970 and quit in 2013. He abused alcohol and quit that 5.5 yrs ago. Past Drug Use History: Marijuana Additional Drug Use History / Comment(s): Medical marijuana but has not used in a long time. - Past Family History Father Family Medical History: Myocardial Infarction (PA) Additional Family Medical History / Comment(s): Father of a massive PA at the age of 73yrs. Medications and Allergies Home Medications Medication Instructions Recorded Confirmed Type metFORMIN HCL [Glucophage] 1,000 mg PO BID 12/19/14 06/09/24 History Omeprazole [PriLOSEC] 20 mg PO DAILY 06/09/24 06/09/24 History amLODIPine [Norvasc] 5 mg PO DAILY 06/09/24 06/09/24 History glipiZIDE [Glucotrol] 5 mg PO DAILY 06/09/24 06/09/24 History lisinopriL [Zestril] 20 mg PO DAILY 06/09/24 06/09/24 History Allergies Allergy/AdvReac Type Severity Reaction Status Date / Time No Known Allergies Allergy Verified 06/09/24 11:56 Surgical - Exam Vital Signs Temp Pulse Resp BP Pulse Ox 97.6 F 92 20 233/87 99 06/09/24 10:38 06/09/24 10:38 06/09/24 10:38 06/09/24 10:38 06/09/24 10:38 - General well developed, well nourished, no distress - Eyes PERRL - ENT normal pinna - Respiratory normal expansion - Cardiovascular Rhythm: regular - Abdomen Multiple laparotomy scars Abdomen: soft, non tender Results - Labs 06/10/24 07:12 06/10/24 07:12 Abnormal Lab Results - Last 24 Hours (Table) 06/09/24 06/09/24 06/09/24 Range/Units 10:55 10:55 11:32 RBC (4.30-5.90) m/uL MCV (80.0-100.0) fL Lymphocytes # 0.9 L (1.0-4.8) k/uL Sodium 125 L (137-145) mmol/L Chloride 84 L (98-107) mmol/L Glucose 162 H (74-99) mg/dL POC Glucose (mg/dL) 168 H (70-110) mg/dL AST 214 H (17-59) U/L ALT 58 H (4-49) U/L Alkaline Phosphatase 174 H (38-126) U/L 06/09/24 06/10/24 06/10/24 Range/Units 21:35 05:51 07:12 RBC 3.91 L (4.30-5.90) m/uL MCV 102.1 H (80.0-100.0) fL Lymphocytes # 0.6 L (1.0-4.8) k/uL Sodium (137-145) mmol/L Chloride (98-107) mmol/L Glucose (74-99) mg/dL POC Glucose (mg/dL) 260 H 126 H (70-110) mg/dL AST (17-59) U/L ALT (4-49) U/L Alkaline Phosphatase (38-126) U/L 06/10/24 Range/Units 07:12 RBC (4.30-5.90) m/uL MCV (80.0-100.0) fL Lymphocytes # (1.0-4.8) k/uL Sodium 130 L (137-145) mmol/L Chloride 92 L (98-107) mmol/L Glucose 139 H (74-99) mg/dL POC Glucose (mg/dL) (70-110) mg/dL AST 118 H (17-59) U/L ALT (4-49) U/L Alkaline Phosphatase 139 H (38-126) U/L Diabetes panel 06/09/24 06/10/24 Range/Units 10:55 07:12 Sodium 125 L 130 L (137-145) mmol/L Potassium 5.1 4.3 (3.5-5.1) mmol/L Chloride 84 L 92 L (98-107) mmol/L Carbon Dioxide 25 28 (22-30) mmol/L BUN 11 11 (9-20) mg/dL Creatinine 0.96 0.86 (0.66-1.25) mg/dL Glucose 162 H 139 H (74-99) mg/dL Calcium 10.0 9.2 (8.4-10.2) mg/dL AST 214 H 118 H (17-59) U/L ALT 58 H 49 (4-49) U/L Alkaline Phosphatase 174 H 139 H (38-126) U/L Total Protein 7.5 6.4 (6.3-8.2) g/dL Albumin 4.9 4.0 (3.5-5.0) g/dL Calcium panel 06/09/24 06/10/24 Range/Units 10:55 07:12 Calcium 10.0 9.2 (8.4-10.2) mg/dL Albumin 4.9 4.0 (3.5-5.0) g/dL Pituitary panel 06/09/24 06/10/24 Range/Units 10:55 07:12 Sodium 125 L 130 L (137-145) mmol/L Potassium 5.1 4.3 (3.5-5.1) mmol/L Chloride 84 L 92 L (98-107) mmol/L Carbon Dioxide 25 28 (22-30) mmol/L BUN 11 11 (9-20) mg/dL Creatinine 0.96 0.86 (0.66-1.25) mg/dL Glucose 162 H 139 H (74-99) mg/dL Calcium 10.0 9.2 (8.4-10.2) mg/dL Adrenal panel 06/09/24 06/10/24 Range/Units 10:55 07:12 Sodium 125 L 130 L (137-145) mmol/L Potassium 5.1 4.3 (3.5-5.1) mmol/L Chloride 84 L 92 L (98-107) mmol/L Carbon Dioxide 25 28 (22-30) mmol/L BUN 11 11 (9-20) mg/dL Creatinine 0.96 0.86 (0.66-1.25) mg/dL Glucose 162 H 139 H (74-99) mg/dL Calcium 10.0 9.2 (8.4-10.2) mg/dL Total Bilirubin 1.1 0.6 (0.2-1.3) mg/dL AST 214 H 118 H (17-59) U/L ALT 58 H 49 (4-49) U/L Alkaline Phosphatase 174 H 139 H (38-126) U/L Total Protein 7.5 6.4 (6.3-8.2) g/dL Albumin 4.9 4.0 (3.5-5.0) g/dL Assessment and Plan Assessment: Resolved abdominal pain. Patient may have had pain due to adhesions. The patient is currently asymptomatic. He will be observed.
[2024-06-10 11:36] LABS: Glucose,Whole Blood 241 mg/dL (70-110)
--- NOTE | 2024-06-10 12:29 | P.PN ---
Subjective Progress Note Date: 06/10/24 Hospital Course: 63-year-old male with history of rectal cancer status post resection and colos ariadna, gastrectomy, small bowel resection and, dumping syndrome, type 2 diabetes, hypertension presenting with abnormal labs. On initial presentation, patient was hypertensive to 233/87, rest of the vital signs within normal limits, sodium 125, total bili 1.1, AST 214, ALT 58, ALP 174. EKG on presentation showed normal sinus rhythm. 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 Patient started on IV fluids, general surgery also consulted. Subjective: Patient seen and examined at bedside. No acute events overnight. Denies any new complaints. Still having increased output through ostomy, which he claims has been going on for years. Denies any abdominal pain. Pertinent positives and negatives as discussed above, a complete review of systems was performed and all other systems are negative. Vitals Signs Reviewed. General: Nontoxic, no distress, appears at stated age Derm: Warm, dry Head: Atraumatic, normocephalic, symmetric Eyes: EOMI, no lid lag, anicteric sclera Mouth: No lip lesion, mucus membranes moist Cardiovascular: S1S2 reg, no murmur Lungs: CTA bilateral, no rhonchi, no rales, no accessory muscle use Abdominal: Soft, nontender to palpation, no guarding, no appreciable organomegaly, ostomy in place Ext: No gross muscle atrophy, no edema, no contractures Neuro: CN II-XI grossly intact, no focal neuro deficits Psych: Alert, oriented, appropriate affect Data Reviewed Today: Pertinent Labs: WBC 5.6, hemoglobin 13.5, sodium 130, creatinine 0.86, total bili 0.6, AST 118, ALT 49, ALP 139 Imaging: New imaging Assessment and Plan: Active: Hypovolemic hyponatremia, resolving Dumping syndrome Multiple previous abdominal surgeries status post colostomy History of rectal cancer status post resection -Continue normal saline at 75 cc an hour -Resolved abdominal pain -General Surgery note reviewed, continue observation -Repeat BMP later today Hypertensive urgency -Restarted home lisinopril 20 mg daily, amlodipine 5 mg daily -Likely also has component of abdominal pain leading to hypertension Transaminitis Hepatic steatosis -Resolving -Unknown etiology GERD -Continue Protonix 40 daily Type 2 diabetes -Hold oral antidiabetics -Sliding scale insulin, ACH S, monitor for hypoglycemia DVT ppx: Lovenox Code status: Full code Anticipated discharge place: Home Anticipated discharge time: Likely tomorrow Objective - Vital Signs Vital signs: Vital Signs Temp 97.3 F L 06/10/24 07:47 Pulse 71 06/10/24 07:47 Resp 18 06/10/24 07:47 BP 168/90 06/10/24 07:47 Pulse Ox 99 06/10/24 07:47 FiO2 Intake & Output 06/09/24 06/10/24 06/10/24 18:59 06:59 18:59 Weight 68.039 kg Other: # Voids 1 # Bowel Movements 0 - Labs CBC & Chem 7: 06/10/24 07:12 06/10/24 07:12 Labs: Abnormal Lab Results - Last 24 Hours (Table) 06/09/24 06/09/24 06/10/24 Range/Units 12:08 21:35 05:51 RBC (4.30-5.90) m/uL MCV (80.0-100.0) fL Lymphocytes # (1.0-4.8) k/uL Sodium (137-145) mmol/L Chloride (98-107) mmol/L Glucose (74-99) mg/dL POC Glucose (mg/dL) 260 H 126 H (70-110) mg/dL AST (17-59) U/L Alkaline Phosphatase (38-126) U/L Urine Osmolality 379 L (400-1100) mOsm/kg 06/10/24 06/10/24 06/10/24 Range/Units 07:12 07:12 11:35 RBC 3.91 L (4.30-5.90) m/uL MCV 102.1 H (80.0-100.0) fL Lymphocytes # 0.6 L (1.0-4.8) k/uL Sodium 130 L (137-145) mmol/L Chloride 92 L (98-107) mmol/L Glucose 139 H (74-99) mg/dL POC Glucose (mg/dL) 241 H (70-110) mg/dL AST 118 H (17-59) U/L Alkaline Phosphatase 139 H (38-126) U/L Urine Osmolality (400-1100) mOsm/kg
[2024-06-10] MEDS: lisinopriL 20 MG TAB PO SCH (14:08)
[2024-06-10 15:37] LABS: Sodium 126 mmol/L (137-145)
[2024-06-10 15:38] LABS: African American GFR (CKD) >90 (>60 ml/min/1.73 sqM); Anion Gap 10 mmol/L; Blood Urea Nitrogen 12 mg/dL (9-20); Calcium 9.1 mg/dL (8.4-10.2); Carbon Dioxide 27 mmol/L (22-30); Chloride 89 mmol/L (98-107); Glucose 242 mg/dL (74-99); Non-African American GFR(CKD) >90 (>60 ml/min/1.73 sqM)
[2024-06-10 16:51] LABS: Glucose,Whole Blood 316 mg/dL (70-110)
[2024-06-10 20:20] LABS: Glucose,Whole Blood 108 mg/dL (70-110)
[2024-06-11 06:08] LABS: Glucose,Whole Blood 194 mg/dL (70-110)
[2024-06-11 08:46] VITALS: BP 183/82; PULSE 69; TEMP 97.6
[2024-06-11 08:57] LABS: BUN/Creat Ratio 9.12 Ratio (12.00-20.00); Blood Urea Nitrogen 7.3 mg/dL (9.0-27.0); Calcium 8.4 mg/dL (8.7-10.3); Carbon Dioxide 23.2 mmol/L (21.6-31.8); Chloride 97 mmol/L (96-109); Glucose 198 mg/dL (70-110); Potassium 4.3 mmol/L (3.5-5.5); Sodium 133 mmol/L (135-145)
[2024-06-11] MEDS: amLODIPine 5 MG TAB PO STA (10:21)
--- NOTE | 2024-06-11 11:34 | P.PN ---
Subjective Progress Note Date: 06/11/24 CHIEF COMPLAINT: Abdominal pain HISTORY OF PRESENT ILLNESS: Patient reports his pain is improving since a dmission. He is having bowel movements and flatus. Denies any nausea or vomiting. He is having his usual amount of output from her his ostomy. He is requesting information on the appropriate diet he should be on due to his electrolyte abnormalities. Afebrile. Elevated blood pressure. Medications adjusted per medicine service. WBC 5.6 yesterday. Sodium 126 up to 133 potassium is 4.3 creatinine 0.8 PHYSICAL EXAM: VITAL SIGNS: Reviewed. GENERAL: Well-developed in no acute distress. ABDOMEN: Soft. Nondistended. Mild tenderness right side of the stoma NEUROLOGIC: Alert and oriented. Cranial nerves II through XII grossly intact. ASSESSMENT: 1. Abdominal pain improved. Pain possibly due to adhesions. PLAN: -Consult dietitian for diet education with patient's known history of dumping syndrome and electrolyte abnormalities -Continue consistent carbohydrate diet -No surgical intervention planned -Agree with discharge and surgical standpoint Physician Silk Finisher note has been reviewed by physician. Signing provider agrees with the documented findings, assessment, and plan of care. Objective - Vital Signs Vital signs: Vital Signs Temp 97.6 F 06/11/24 08:00 Pulse 69 06/11/24 08:00 Resp 18 06/11/24 08:00 BP 183/82 06/11/24 08:00 Pulse Ox 100 06/11/24 08:00 FiO2 Intake & Output 06/10/24 06/11/24 06/11/24 18:59 06:59 18:59 Intake Total 118 Balance 118 Intake: Oral 118 Other: # Voids 2 1 - Labs CBC & Chem 7: 06/10/24 07:12 06/11/24 04:47 Labs: Abnormal Lab Results - Last 24 Hours (Table) 06/09/24 06/09/24 06/09/24 Range/Units 12:08 12:08 12:08 Sodium (137-145) mmol/L Chloride (98-107) mmol/L Anion Gap (4.00-12.00) mmol/L BUN (9.0-27.0) mg/dL BUN/Creatinine Ratio (12.00-20.00) Ratio Glucose (74-99) mg/dL POC Glucose (mg/dL) (70-110) mg/dL Osmolality 381 A* (275-295) mOsm/kg Calcium (8.7-10.3) mg/dL Urine Osmolality 379 L (400-1100) mOsm/kg Ur Random Sodium <20 L (40-220) mmol/L 06/10/24 06/10/24 06/10/24 Range/Units 11:35 15:04 16:49 Sodium 126 L (137-145) mmol/L Chloride 89 L (98-107) mmol/L Anion Gap (4.00-12.00) mmol/L BUN (9.0-27.0) mg/dL BUN/Creatinine Ratio (12.00-20.00) Ratio Glucose 242 H (74-99) mg/dL POC Glucose (mg/dL) 241 H 316 H (70-110) mg/dL Osmolality 270 L (275-295) mOsm/kg Calcium (8.7-10.3) mg/dL Urine Osmolality (400-1100) mOsm/kg Ur Random Sodium (40-220) mmol/L 06/11/24 06/11/24 Range/Units 04:47 06:06 Sodium 133 L (137-145) mmol/L Chloride (98-107) mmol/L Anion Gap 12.80 H (4.00-12.00) mmol/L BUN 7.3 L (9.0-27.0) mg/dL BUN/Creatinine Ratio 9.12 L (12.00-20.00) Ratio Glucose 198 H (74-99) mg/dL POC Glucose (mg/dL) 194 H (70-110) mg/dL Osmolality (275-295) mOsm/kg Calcium 8.4 L (8.7-10.3) mg/dL Urine Osmolality (400-1100) mOsm/kg Ur Random Sodium (40-220) mmol/L
[2024-06-11 11:36] LABS: Glucose,Whole Blood 253 mg/dL (70-110)
--- NOTE | 2024-06-11 15:47 | P.DS ---
Providers Date of admission: 06/09/24 13:10 Expected date of discharge: 06/11/24 Attending physician: Alberto Wheeler MD Consults: 06/09/24 13:07 Consult Physician Routine Consulting Provider: Keith Batres Consult Reason/Comments: abd pain Do you want consulting provider notified?: Yes Primary care physician: [facility] Hospital Course: Discharge Diagnosis: Hypovolemic hyponatremia Dumping syndrome Multiple previous abdominal surgeries status post colostomy History of rectal cancer status post resection Hypertensive urgency Transaminitis Hepatic steatosis GERD Type 2 diabetes Hospital Course: 63-year-old male with history of rectal cancer status post resection and colostomy, gastrectomy, small bowel resection and, dumping syndrome, type 2 diabetes, hypertension presenting with abnormal labs. On initial presentation, patient was hypertensive to 233/87, rest of the vital signs within normal limits, sodium 125, total bili 1.1, AST 214, ALT 58, ALP 174. EKG on presentation showed normal sinus rhythm. 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 Patient started on IV fluids, general surgery also consulted. Sodium levels improved. Patient being discharged home. Follow-up with PCP and general surgery. Patient seen and examined at bedside. Vital signs reviewed and stable. General: Nontoxic, no distress, appears at stated age Derm: Warm, dry Head: Atraumatic, normocephalic, symmetric Eyes: EOMI, no lid lag, anicteric sclera Mouth: No lip lesion, mucus membranes moist Cardiovascular: S1S2 reg, no murmur Lungs: CTA bilateral, no rhonchi, no rales, no accessory muscle use Abdominal: Soft, nontender to palpation, no guarding, no appreciable organomegaly, ostomy in place Ext: No gross muscle atrophy, no edema, no contractures Neuro: CN II-XI grossly intact, no focal neuro deficits Psych: Alert, oriented, appropriate affect A total of 33 minutes of time were spent preparing this complex discharge summary. Patient was discharged on 06/11/2024 at 1020. Patient Condition at Discharge: Stable Plan - Discharge Summary Discharge Rx Participant: Yes New Discharge Prescriptions: New amLODIPine [Norvasc] 10 mg PO DAILY #90 tab Continue metFORMIN HCL [Glucophage] 1,000 mg PO BID lisinopriL [Zestril] 20 mg PO DAILY Omeprazole [PriLOSEC] 20 mg PO DAILY glipiZIDE [Glucotrol] 5 mg PO DAILY Discontinued amLODIPine [Norvasc] 5 mg PO DAILY Discharge Medication List metFORMIN HCL [Glucophage] 1,000 mg PO BID 12/19/14 [History] Omeprazole [PriLOSEC] 20 mg PO DAILY 06/09/24 [History] glipiZIDE [Glucotrol] 5 mg PO DAILY 06/09/24 [History] lisinopriL [Zestril] 20 mg PO DAILY 06/09/24 [History] amLODIPine [Norvasc] 10 mg PO DAILY #90 tab 06/11/24 [Rx] Follow up Appointment(s)/Referral(s): [facility],Clinic [Primary Care Provider] - 1-2 days (Office is not answering at time of discharge. Please call for follow-up appointment.) Keith Batres MD [STAFF PHYSICIAN] - 06/21/24 2:40 pm Patient Instructions/Handouts: Hyponatremia (DC) Activity/Diet/Wound Care/Special Instructions: Please see general surgery and your PCP. Discharge Disposition: HOME SELF-CARE
[2024-06-12] MEDS ORDERED: amLODIPine 10 MG TAB PO SCH (09:00)
== END 2024-06-11 12:53 | disposition home or self-care (01) | DRG 641 ==
LOC: EC 10:34 → 5NMEDONC 13:10 → 4SSUR 15:34
PROVIDERS: ADMIT Internal Medicine; ATTEND Internal Medicine
DX: E87.1 Hypo-osmolality and hyponatremia (principal); E11.9 Type 2 diabetes mellitus without complications; K91.1 Postgastric surgery syndromes; K21.9 Gastro-esophageal reflux disease without esophagitis; R74.01 Elevation of levels of liver transaminase levels; K76.0 Fatty (change of) liver, not elsewhere classified; I16.0 Hypertensive urgency; Z87.19 Personal history of other diseases of the digestive system; E86.1 Hypovolemia; E87.5 Hyperkalemia; H91.90 Unspecified hearing loss, unspecified ear; I10 Essential (primary) hypertension; Z79.84 Long term (current) use of oral hypoglycemic drugs; Z79.899 Other long term (current) drug therapy; Z82.49 Family history of ischemic heart disease and other diseases of the circulatory system; Z85.048 Personal history of other malignant neoplasm of rectum, rectosigmoid junction, and anus; Z87.442 Personal history of urinary calculi; Z87.891 Personal history of nicotine dependence; Z90.3 Acquired absence of stomach [part of]; Z90.49 Acquired absence of other specified parts of digestive tract; Z93.3 Colostomy status
CPT/HCPCS: 36415; 74177; 80048; 80053; 83735; 83930; 83935; 84300; 85025; 93005; 96360; 99285

== ENCOUNTER 2024-09-21 13:32 | Observation (INO) | payer MEDICARE, OTHER ==
[2024-09-21 13:40] LABS: Glucose,Whole Blood 207 mg/dL (70-110)
--- NOTE | 2024-09-21 14:00 | XR ---
EXAMINATION TYPE: XR KUB DATE OF EXAM: 09/21/2024 COMPARISON: NONE CLINICAL INDICATION: Male, 64 years old with history of abdominal pain; TECHNIQUE: XR KUB views of the abdomen. FINDINGS: The osseous structures are intact. The bowel gas pattern is nonspecific. Findings is prior hernia re pair surgery. Ostomy in the left lower quadrant. Previous surgical changes in the left upper quadrant and epigastric region. There is calcification along the right pleural surface possibly related to in halational\asbestos-related disease. Mild bilateral hip arthropathy. IMPRESSION: 1. Nonspecific abdomen with no obstruction. [facility], , 09/21/2024 1:58 PM
[2024-09-21 14:02] LABS: Basophils # (A) 0.1 k/uL (0-0.2); Basophils % (A) 1 %; Eosinophils # (A) 0.1 k/uL (0-0.7); Eosinophils % (A) 1 %; HCT 41.1 % (39.0-53.0); HGB 13.8 gm/dL (13.0-17.5); Lymphocytes # (A) 0.8 k/uL (1.0-4.8); Lymphocytes % (A) 9 %; MCH 35.6 pg (25.0-35.0); MCHC 33.7 g/dL (31.0-37.0); MCV 105.6 fL (80.0-100.0); Macrocytosis Moderate; Mean Platelet Volume 6.6; Monocytes # (A) 0.7 k/uL (0-1.0); Monocytes % (A) 8 %; Neutrophils # (A) 6.7 k/uL (1.3-7.7); Neutrophils % (A) 78 %; Platelet Count 309 k/uL (150-450); RBC 3.89 m/uL (4.30-5.90); RDW 14.7 % (11.5-15.5); WBC 8.6 k/uL (3.8-10.6)
[2024-09-21 14:06] LABS: ALT 40 U/L (4-49); AST 133 U/L (17-59); African American GFR (CKD) 83 (>60 ml/min/1.73 sqM); Albumin 5.4 g/dL (3.5-5.0); Alkaline Phosphatase 262 U/L (38-126); Amylase 64 U/L (30-110); Anion Gap 17 mmol/L; Blood Urea Nitrogen 14 mg/dL (9-20); Calcium 10.1 mg/dL (8.4-10.2); Carbon Dioxide 24 mmol/L (22-30); Chloride 92 mmol/L (98-107); Glucose 195 mg/dL (74-99); Lipase 243 U/L (23-300); Non-African American GFR(CKD) 72 (>60 ml/min/1.73 sqM); Sodium 133 mmol/L (137-145); Total Bilirubin 0.6 mg/dL (0.2-1.3); Total Protein 9.1 g/dL (6.3-8.2)
--- NOTE | 2024-09-21 14:09 | ED ---
Abdominal Pain HPI - General Source: patient, RN notes reviewed Mode of arrival: ambulatory Limitations: no limitations <Shaista May - Last Filed: 09/21/24 14:08> <Lolis Juárez - Last Filed: 09/22/24 22:57> - General Chief Complaint: Abdominal Pain Stated Complaint: Fever Time Seen by Provider: 09/21/24 14:08 - History of Present Illness Initial Comments: Quick note: 64-year-old male presenting to the ER for evaluation of abdominal pain. Patient reports he has a colostomy since 2010. Patient reports chills denies known fevers. No nausea vomiting. Patient believes he has a herniated colostomy. Patient also reports he has relapsed on alcohol due to the discomfort. No history of withdrawal seizures. (Shaista May) 64-year-old male presents the emergency department with pain near his stoma site. Patient has had the colostomy since 2010. 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 Reports that he has pain consistent with his previous stomal prolapse. He does feel as if there is more externalized mucosa than what is normal for him. The pain has been worse for the past 3 days for which he has decided to cope by drinking alcohol. States that he has been drinking heavily for the past 4 days. His last drink was earlier today. Admits that he did drink 2 beers today. He denies any nausea or vomiting. Reports that he has continued to have output from his stoma. No fevers. No chest pain or difficulty breathing. No other alleviating, precipitating or modifying factors (Lolis Juárez) - Related Data Home Medications Medication Instructions Recorded Confirmed metFORMIN HCL [Glucophage] 1,000 mg PO BID 12/19/14 09/21/24 Omeprazole [PriLOSEC] 20 mg PO DAILY 06/09/24 09/21/24 glipiZIDE [Glucotrol] 5 mg PO BID-W/MEALS 06/09/24 09/21/24 lisinopriL [Zestril] 20 mg PO DAILY 06/09/24 09/21/24 Previous Rx's Medication Instructions Recorded amLODIPine [Norvasc] 10 mg PO DAILY #90 tab 06/11/24 Thiamine [Vitamin B-1] 100 mg PO DAILY #14 tab 12/28/24 Allergies Allergy/AdvReac Type Severity Reaction Status Date / Time No Known Allergies Allergy Verified 09/21/24 18:14 Review of Systems ROS Other: All systems not noted in ROS Statement are negative. <Shaista May - Last Filed: 09/21/24 14:08> ROS Other: All systems not noted in ROS Statement are negative. <DentondanelleLolis Nathan - Last Filed: 09/22/24 22:57> ROS Statement: Those systems with pertinent positive or pertinent negative responses have been documented in the HPI. Past Medical History Past Medical History: Cancer, Diabetes Mellitus, Eye Disorder, GERD/Reflux, Hearing Disorder / Deafness, Hypertension, Pneumonia Additional Past Medical History / Comment(s): NIDDM type II, neuropathy bilateral feet/R arm, colon cancer with surgery/colostomy/dumping syndrome, pancreatitis/pancreatic calcification/pseudocyst, cystic lesions L upper quadrant, anemia, chronic lumbar back pain, DDD, L eye retinal problem/affected peripheral vision, bilateral tinnitis, sinus problems, nephrolithiasis, past HTN. History of Any Multi-Drug Resistant Organisms: None Reported Past Surgical History: Orthopedic Surgery, Tonsillectomy Additional Past Surgical History / Comment(s): 1992 partial gastrectomy/small bowel resection d/t duodenal cyst, 2013 colon cancer with colectomy/ileostomy, cervical surgery with hardware, testicular surgery d/t injury, EGD, colonoscopy. Past Anesthesia/Blood Transfusion Reactions: No Reported Reaction Past Psychological History: No Psychological Hx Reported Smoking Status: Former smoker Past Alcohol Use History: Occasional Past Drug Use History: Marijuana - Past Family History Father Family Medical History: Myocardial Infarction (MO) Additional Family Medical History / Comment(s): Father of a massive MO at the age of 73yrs. <Shaista May - Last Filed: 09/21/24 14:08> General Exam Limitations: no limitations <Shaista May - Last Filed: 09/21/24 14:08> General appearance: alert, other (Tremulous) Head exam: Present: atraumatic, normocephalic, normal inspection Eye exam: Present: normal appearance, PERRL, EOMI. Absent: scleral icterus, conjunctival injection, periorbital swelling ENT exam: Present: normal exam, mucous membranes moist Respiratory exam: Present: normal lung sounds bilaterally. Absent: respiratory distress, wheezes, rales, rhonchi, stridor Cardiovascular Exam: Present: regular rate, normal rhythm, normal heart sounds. Absent: systolic murmur, diastolic murmur, rubs, gallop, clicks GI/Abdominal exam: Present: soft, normal bowel sounds, other (Evaluation of the patient's stoma site reveals that there is approximately 3 cm of externalized mucosa. It is erythematous and somewhat indurated. No surrounding signs of cellulitis). Absent: distended, tenderness, guarding, rebound, rigid <Lolis Juárez - Last Filed: 09/22/24 22:57> - General Exam Comments Initial Comments: Visual Physical Exam Vital signs reviewed General: Nontoxic appearing, appears uncomfortable tearful on exam Head: Normocephalic, atraumatic Eyes: PERRLA, EOMI ENT: Airway patent Chest: Nonlabored breathing Skin: No visual rash, normal skin tone Neuro: Alert and oriented 3 Musculoskeletal: No gross abnormalities (Shaista May) Course Vital Signs 09/21/24 09/21/24 09/21/24 13:35 16:00 17:11 Temperature 98.3 F 98.6 F Pulse Rate 98 72 81 Respiratory 20 20 Rate Blood Pressure 234/104 198/91 200/93 O2 Sat by Pulse 100 99 Oximetry 09/21/24 09/21/24 09/22/24 18:37 22:58 00:34 Temperature Pulse Rate 64 Respiratory Rate Blood Pressure 193/95 202/97 177/86 O2 Sat by Pulse Oximetry 09/22/24 09/22/24 09/22/24 03:00 03:33 03:34 Temperature 98.5 F Pulse Rate 70 Respiratory 12 Rate Blood Pressure 156/79 156/79 O2 Sat by Pulse 99 Oximetry 09/22/24 09/22/24 09/22/24 04:00 06:55 08:30 Temperature 98.3 F Pulse Rate 70 71 84 Respiratory 22 19 16 Rate Blood Pressure 156/79 122/82 153/90 O2 Sat by Pulse 96 97 99 Oximetry 09/22/24 15:08 Temperature Pulse Rate 90 Respiratory 20 Rate Blood Pressure 181/98 O2 Sat by Pulse 97 Oximetry Medical Decision Making - Lab Data Result diagrams: 09/21/24 13:39 09/21/24 13:39 <Shaista May - Last Filed: 09/21/24 14:08> - Lab Data Result diagrams: 09/22/24 07:10 09/22/24 07:10 <Lolis Juárez - Last Filed: 09/22/24 22:57> - Medical Decision Making I performed the quick note portion of this chart. Electronically signed by Shaista May PA-C (Shaista May) Was pt. sent in by a medical professional or institution ([facility]INA Andrade, CHILD DEVELOPMENT INSTRUCTOR, urgent care, hospital, or fci...) When possible be specific @ -No Did you speak to anyone other than the patient for history (EMS, parent, family, police, friend...)? What history was obtained from this source @ -No Did you review nursing and triage notes (agree or disagree)? Why? @ -I reviewed and agree with nursing and triage notes Were old charts reviewed (outside hosp., previous admission, EMS record, old EKG, old radiological studies, urgent care reports/EKG's, fci records)? Report findings @ -No old charts were reviewed Differential Diagnosis (chest pain, altered mental status, abdominal pain women, abdominal pain men, vaginal bleeding, weakness, fever, dyspnea, syncope, headache, dizziness, GI bleed, back pain, seizure, CVA, palpatations, mental health, musculoskeletal)? @ -Differential Abdominal Pain Men: Appendicitis, cholecystitis, diverticulosis, ischemic bowel, pancreatitis, hepatitis, UTI, gastroenteritis, AAA, incarcerated hernia, bowel obstruction, constipation, inflammatory bowel, hepatitis, peptic ulcer disease, splenic infarction, perforated viscus, testicular torsion, this is not meant to be an all-inclusive list EKG interpreted by me (3pts min.). @ -Not done X-rays interpreted by me (1pt min.). @ -None done CT interpreted by me (1pt min.). @ -Yes and demonstrates no acute findings U/S interpreted by me (1pt. min.). @ -None done What testing was considered but not performed or refused? (CT, X-rays, U/S, labs)? Why? @ -None What meds were considered but not given or refused? Why? @ -None Did you discuss the management of the patient with other professionals (professionals i.e. DINA Andrade, CHILD DEVELOPMENT INSTRUCTOR, lab, RT, psych nurse, social media director, cnc field service engineer, teacher, [place] [employer] police officer, case aide)? Give summary @ -Spoke with Dr. Rich. I am concerned about acute alcohol withdrawal in the patient as he is still tremulous he is having difficulty getting his colostomy supplies out of his bag Was smoking cessation discussed for >3mins.? @ -No Was critical care preformed (if so, how long)? @ -No Were there social determinants of health that impacted care today? How? (Homelessness, low income, unemployed, alcoholism, drug addiction, tr ansportation, low edu. Level, literacy, decrease access to med. care, half-way, rehab)? @ -Alcohol abuse Was there de-escalation of care discussed even if they declined (Discuss DNR or withdrawal of care, Hospice)? DNR status @ -No What co-morbidities impacted this encounter? (DM, HTN, Smoking, COPD, CAD, Cancer, CVA, ARF, Chemo, Hep., AIDS, mental health diagnosis, sleep apnea, morbid obesity)? @ -Alcohol abuse Was patient admitted / discharged? Hospital course, mention meds given and route, prescriptions, significant lab abnormalities, going to OR and other pertinent info. @ -Upon arrival patient seen and evaluated in room 15. Thorough history and physical exam was performed. Patient is extremely tremulous in the exam room. IV is established and patient is administered Ativan as he does demonstrate signs of withdrawal at this time. Laboratory studies are conducted. CT was performed. I did place a small amount of sugar and wet gauze on the patient's stoma site and attempted to reduce his stoma somewhat. Results are discussed with the patient. I do feel that he requires admission for an overnight observation due to alcohol withdrawal symptoms. I called and spoke with Dr. Diana Kaur who was agreeable to this Undiagnosed new problem with uncertain prognosis? @ -No Drug Therapy requiring intensive monitoring for toxicity (Heparin, Nitro, Insulin, Cardizem)? @ -No Were any procedures done? @ -No Diagnosis/symptom? @ -Acute stomal pain, history of parastomal hernia, alcohol abuse with acute alcohol withdrawal symptoms Acute, or Chronic, or Acute on Chronic? @ -Acute Uncomplicated (without systemic symptoms) or Complicated (systemic symptoms)? @ -Complicated Side effects of treatment? @ -No Exacerbation, Progression, or Severe Exacerbation? @ -No Poses a threat to life or bodily function? How? (Chest pain, [place], MO, pneumonia, PE, COPD, DKA, ARF, appy, cholecystitis, CVA, Diverticulitis, Homicidal, Suicidal, threat to staff... and all critical care pts) @ -No (FranckLolis Evans) - Lab Data Lab Results 09/21/24 09/21/24 09/21/24 Range/Units 13:38 13:39 13:39 WBC 8.6 (3.8-10.6) k/uL RBC 3.89 L (4.30-5.90) m/uL Hgb 13.8 (13.0-17.5) gm/dL Hct 41.1 (39.0-53.0) % MCV 105.6 H (80.0-100.0) fL MCH 35.6 H (25.0-35.0) pg MCHC 33.7 (31.0-37.0) g/dL RDW 14.7 (11.5-15.5) % Plt Count 309 (150-450) k/uL MPV 6.6 Neutrophils % 78 % Lymphocytes % 9 % Monocytes % 8 % Eosinophils % 1 % Basophils % 1 % Neutrophils # 6.7 (1.3-7.7) k/uL Lymphocytes # 0.8 L (1.0-4.8) k/uL Monocytes # 0.7 (0-1.0) k/uL Eosinophils # 0.1 (0-0.7) k/uL Basophils # 0.1 (0-0.2) k/uL Macrocytosis Moderate PT 9.5 L (10.0-12.5) sec INR 0.8 (<1.2) APTT 22.1 (22.0-30.0) sec Sodium (137-145) mmol/L Potassium (3.5-5.1) mmol/L Chloride (98-107) mmol/L Carbon Dioxide (22-30) mmol/L Anion Gap mmol/L BUN (9-20) mg/dL Creatinine (0.66-1.25) mg/dL Est GFR (CKD-EPI)AfAm (>60 ml/min/1.73 sqM) Est GFR (CKD-EPI)NonAf (>60 ml/min/1.73 sqM) Glucose (74-99) mg/dL POC Glucose (mg/dL) 207 H (70-110) mg/dL POC Glu Distribution Field Technician ID Gunnar Gaona Lactic Ac Sepsis Rflx Plasma Lactic Acid Davion (0.7-2.0) mmol/L Calcium (8.4-10.2) mg/dL Total Bilirubin (0.2-1.3) mg/dL AST (17-59) U/L ALT (4-49) U/L Alkaline Phosphatase (38-126) U/L Total Protein (6.3-8.2) g/dL Albumin (3.5-5.0) g/dL Amylase (30-110) U/L Lipase (23-300) U/L Serum Alcohol mg/dL 09/21/24 09/21/24 09/21/24 Range/Units 13:39 13:39 13:39 WBC (3.8-10.6) k/uL RBC (4.30-5.90) m/uL Hgb (13.0-17.5) gm/dL Hct (39.0-53.0) % MCV (80.0-100.0) fL MCH (25.0-35.0) pg MCHC (31.0-37.0) g/dL RDW (11.5-15.5) % Plt Count (150-450) k/uL MPV Neutrophils % % Lymphocytes % % Monocytes % % Eosinophils % % Basophils % % Neutrophils # (1.3-7.7) k/uL Lymphocytes # (1.0-4.8) k/uL Monocytes # (0-1.0) k/uL Eosinophils # (0-0.7) k/uL Basophils # (0-0.2) k/uL Macrocytosis PT (10.0-12.5) sec INR (<1.2) APTT (22.0-30.0) sec Sodium 133 L (137-145) mmol/L Potassium 4.0 (3.5-5.1) mmol/L Chloride 92 L (98-107) mmol/L Carbon Dioxide 24 (22-30) mmol/L Anion Gap 17 mmol/L BUN 14 (9-20) mg/dL Creatinine 1.09 (0.66-1.25) mg/dL Est GFR (CKD-EPI)AfAm 83 (>60 ml/min/1.73 sqM) Est GFR (CKD-EPI)NonAf 72 (>60 ml/min/1.73 sqM) Glucose 195 H (74-99) mg/dL POC Glucose (mg/dL) (70-110) mg/dL POC Glu Distribution Field Technician ID Lactic Ac Sepsis Rflx Plasma Lactic Acid Davion 2.9 H* (0.7-2.0) mmol/L Calcium 10.1 (8.4-10.2) mg/dL Total Bilirubin 0.6 (0.2-1.3) mg/dL AST 133 H (17-59) U/L ALT 40 (4-49) U/L Alkaline Phosphatase 262 H (38-126) U/L Total Protein 9.1 H (6.3-8.2) g/dL Albumin 5.4 H (3.5-5.0) g/dL Amylase 64 (30-110) U/L Lipase 243 (23-300) U/L Serum Alcohol <10 mg/dL 09/21/24 09/21/24 Range/Units 14:12 16:28 WBC (3.8-10.6) k/uL RBC (4.30-5.90) m/uL Hgb (13.0-17.5) gm/dL Hct (39.0-53.0) % MCV (80.0-100.0) fL MCH (25.0-35.0) pg MCHC (31.0-37.0) g/dL RDW (11.5-15.5) % Plt Count (150-450) k/uL MPV Neutrophils % % Lymphocytes % % Monocytes % % Eosinophils % % Basophils % % Neutrophils # (1.3-7.7) k/uL Lymphocytes # (1.0-4.8) k/uL Monocytes # (0-1.0) k/uL Eosinophils # (0-0.7) k/uL Basophils # (0-0.2) k/uL Macrocytosis PT (10.0-12.5) sec INR (<1.2) APTT (22.0-30.0) sec Sodium (137-145) mmol/L Potassium (3.5-5.1) mmol/L Chloride (98-107) mmol/L Carbon Dioxide (22-30) mmol/L Anion Gap mmol/L BUN (9-20) mg/dL Creatinine (0.66-1.25) mg/dL Est GFR (CKD-EPI)AfAm (>60 ml/min/1.73 sqM) Est GFR (CKD-EPI)NonAf (>60 ml/min/1.73 sqM) Glucose (74-99) mg/dL POC Glucose (mg/dL) (70-110) mg/dL POC Glu Distribution Field Technician ID Lactic Ac Sepsis Rflx Y Plasma Lactic Acid Davion 1.5 (0.7-2.0) mmol/L Calcium (8.4-10.2) mg/dL Total Bilirubin (0.2-1.3) mg/dL AST (17-59) U/L ALT (4-49) U/L Alkaline Phosphatase (38-126) U/L Total Protein (6.3-8.2) g/dL Albumin (3.5-5.0) g/dL Amylase (30-110) U/L Lipase (23-300) U/L Serum Alcohol mg/dL Disposition <Shaista May - Last Filed: 09/21/24 14:08> Is patient prescribed a controlled substance at d/c from ED?: No Time of Disposition: 18:51 Decision to Admit Reason: Admit from EC Decision Date: 09/21/24 Decision Time: 18:51 <Lolis Juárez - Last Filed: 09/22/24 22:57> Clinical Impression: Stomach pain, Alcohol abuse with withdrawal, Tremor Disposition: ADMITTED IP TO THIS HOSP Condition: Stable
[2024-09-21 14:24] LABS: INR 0.8 (<1.2); Partial Thromboplastin Time 22.1 sec (22.0-30.0); Prothrombin Time 9.5 sec (10.0-12.5)
[2024-09-21] MEDS: SODIUM CHLORIDE 0.9% 1,000 ML IV ONE (15:57)
[2024-09-21] MEDS: LORazepam 2 MG/ML INJ IV STA ×2 (15:58→17:24)
[2024-09-21] MEDS: HYDROmorphone 1 MG/ML 1 ML SYRINGE IVP STA (15:58)
--- NOTE | 2024-09-21 16:43 | CT ---
EXAMINATION TYPE: CT abdomen pelvis w con DATE OF EXAM: 09/21/2024 4:30 PM COMPARISON: Multiple prior CT abdomen/pelvis studies, most recently dated 06/09/2024. CLINICAL INDICATION: Male, 64 years old with history of abd pain at stoma site; redness at ostomy sit e, hx of colon ca. TECHNIQUE: Axial CT abdomen pelvis w con;Sagittal and coronal reformats were created on a separate w orkstation. Contrast used:100 mL of Isovue 300 with IV Contrast, (none if empty) Oral contrast used: without Oral Contrast (none if empty) CT DLP: 746.9 mGycm, Automated exposure control for dose reduction was used. FINDINGS: LOWER CHEST: No acute pathology. Redemonstration of calcified pleural thickening in the right lower l obe. ABDOMEN LIVER: Diffusely hypoattenuating parenchyma. GALLBLADDER AND BILE DUCTS: Unremarkable. PANCREAS: Sequelae of chronic pancreatitis with parenchymal calcifications. SPLEEN: Unremarkable. ADRENAL GLANDS: Unremarkable. KIDNEYS AND URETERS: No evidence of hydronephrosis or renal calculus. The ureters are unremarkable. PELVIS BLADDER: No evidence for wall thickening or mass given limitations of exam. REPRODUCTIVE: Prostate gland likely surgically absent. ABDOMEN & PELVIS STOMACH AND BOWEL: Left lower quadrant ileostomy with small associated parastomal fat containing glenn ia. Positive changes in the anterior abdominal wall again noted. Surgical clips in the right lower qu adrant. No evidence of small bowel obstruction. Previous partial gastrectomy also noted. Appendix nor mal. PERITONEUM/RETROPERITONEUM: No evidence of pneumoperitoneum or free fluid. VASCULATURE: No evidence of aortic aneurysm. 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 MUSCULOSKELETAL: No acute osseous abnormalities LYMPH NODES: No gross evidence for lymphadenopathy. SOFT TISSUE/ABDOMINAL WALL: Unremarkable IMPRESSION: No acute abnormality in the abdomen/pelvis. Stable CT exam compared to previous study dated 06/09/2024 . [facility], , 09/21/2024 4:41 PM
[2024-09-21] MEDS ORDERED: LORazepam 2 MG/ML INJ IV PRN ×2 (18:50)
[2024-09-21] MEDS ORDERED: NALOXONE 0.4 MG/ML 1 ML VIAL IV PRN (18:53)
[2024-09-21] MEDS ORDERED: ONDANSETRON 4 MG/2 ML VIAL IVP PRN (18:53)
[2024-09-21] MEDS: SODIUM CHLORIDE 0.9% 1,000 ML IV SCH (20:44)
[2024-09-21] MEDS: THIAMINE 100 MG/ML 2 ML VIAL IM STA (20:44)
[2024-09-21] MEDS: ACETAMINOPHEN TAB 325 MG TAB PO PRN (23:28)
[2024-09-21] MEDS: lisinopriL 20 MG TAB PO SCH (23:28)
[2024-09-21] MEDS: amLODIPine 10 MG TAB PO SCH (23:28)
--- NOTE | 2024-09-22 01:22 | P.HPIM ---
History of Present Illness H&P Date: 09/21/24 Chief Complaint: Abdominal pain Patient is a 64-year-old male with a colostomy since 2013, [id number]-[id number] diabetes mellitus type 2, history of colon cancer with surgery/colostomy/dumping syndrome, neuropathy bilateral feet/right arm, history of pancreatitis, GERD, hearing disorder, hypertension, chronic lumbar back pain, history of pneumonia and nephrolithiasis presented to the emergency department for evaluation of abdominal pain around his colostomy site. Patient does have a history of colon cancer and has had a colostomy since 2013. Patient does see a physician once every 6 months to have his colostomy evaluated. He reported that 5 days ago he started noticing abdominal pain surrounding the colostomy site that has been progressively getting worse which made the patient to come to ED for evaluation. He currently reports an 8 out of 10 sharp stabbing, nonradiating abdominal pain surrounding the colostomy site seem to alleviate temporarily with Dilaudid. Patient also reports feeling chills. Also reported tingling in bilateral lower extremity due to a chronic history of peripheral neuropathy. No fever. Also denies nausea, vomiting, chest pain, shortness of breath, dysuria. Patient also has been drinking heavily for the past 4 days with a total combined of more than 18 beers. ED documentation reviewed. In the ED patient was treated with Dilaudid 1 mg IV x 1, Ativan 2 mg IV x 2, a bolus of normal saline Vitals on admission temperature 98.6, pulse rate 81, blood pressure 193/95, O2 sat 99% on room air CT of abdomen/pelvis shows no acute abnormality in abdomen/pelvis. Stable CT exam compared to previous study dated 06/09/2024. KUB x-ray shows no specific abdomen with no obstruction Labs on admission show WBC 8.6, hemoglobin 13.8, hematocrit 41.1, MCV 105.6, platelet 309, PT 9.5, PTT 22.1, INR 0.8, sodium 133, potassium 4, chloride 92, carbon dioxide 24, BUN 14, creatinine 1.09, glucose 195, lactic acid 1.5, AST 133, ALT 40, alkaline phosphatase 262, albumin 5.4, lipase 243, serum alcohol less than 10 Review of systems: Pertinent positives and negatives as discussed in HPI, a complete review of systems was performed and all other systems are negative. PMH: Etp-pzkkusz-aganhrttw diabetes mellitus type 2, history of colon cancer with surgery/colostomy/dumping syndrome, neuropathy bilateral feet/right arm, history of pancreatitis, GERD, hearing disorder, hypertension, chronic lumbar back pain, history of pneumonia and nephrolithiasis PSH: Orthopedic surgery, tonsillectomy, partial gastrectomy/small bowel resection due to duodenal cyst in 1992, colon cancer with colectomy/ileostomy in 2013, testicular surgery due to injury, cervical surgery with hardware FMH: Father has a history of myocardial infarction Allergies: No known drug allergies Social history: Tobacco: Former smoker Alcohol: Occasional Recreational drugs: Marijuana Travel: No travel history Sick contacts: No sick contacts Physical examination: Vital signs reviewed General: nontoxic, no distress, appears at stated age, well-appearing Derm: warm, dry, intact Head: atraumatic, normocephalic, symmetric Eyes: EOMI, anicteric sclera Mouth: no lip lesion, mucus membranes moist Cardiovascular: S1 S2 reg, no murmur Lungs: CTA bilateral, no rhonchi, no rales, no accessory muscle use Abdominal: soft, area surrounding colostomy site tender to palpation, colostomy bag noted in the left upper quadrant with no erythema, swelling, discoloration. Nondistended Extremities: No cyanosis, clubbing, or pedal edema. Neuro: Alert, Oriented, Gross neurological examination did not reveal any focal deficits. Cranial nerves II to XII grossly intact. Bilateral upper and lower extremity muscle strength intact and sensation intact. Psych: appropriate affect Assessment/Plan: Patient is a 64-year-old male with a colostomy since 2010, [id number]-hwqdnxujb diabetes mellitus type 2, history of colon cancer with surgery/colostomy/dumping syndrome, neuropathy bilateral feet/right arm, history of pancreatitis, GERD, hearing disorder, hypertension, chronic lumbar back pain, history of pneumonia and nephrolithiasis presented to the emergency department for evaluation of abdominal pain around his colostomy site. Active: #. Abdominal pain surrounding colostomy site #. Status post colostomy since 2013 Consult general surgery Pain control as needed with Tylenol Nausea control as needed with Zofran Continue normal saline at 130 cc an hour #. Hyponatremia Sodium 133 Continue normal saline at 130 cc an hour Monitor morning CMP #. Hyperglycemia, history of diabetes mellitus type 2 Glucose 195 Hold home diabetic medications Initiate sliding scale insulin #. Lactic acidosis, now resolved Initial lactic acid was 2.9 Repeat 1.5 #. Elevated AST and alkaline phosphatase AST elevated at 133 ALT 40 Alkaline phosphatase elevated at 262 Monitor morning CMP Chronic: #. Hypertension Restart lisinopril 20 mg daily and amlodipine 10 mg daily #. GERD Restart omeprazole 20 mg daily F: No restrictions E: Replete as needed N: Heart healthy diet A: Ambulatory DVT prophylaxis: Lovenox 40 mg subcu daily The patient is admitted with an anticipated more than 2 midnight stay for evaluation of abdominal pain CODE STATUS: Full code Discussed with: Patient Anticipated discharge place: Home I have seen and evaluated the patient today. I Discussed the case with the resident and agree with the resident's findings I edited the assessment and plan as necessary as documented in the resident's note. Past Medical History Past Medical History: Cancer, Diabetes Mellitus, Eye Disorder, GERD/Reflux, Hearing Disorder / Deafness, Hypertension, Pneumonia Additional Past Medical History / Comment(s): NIDDM type II, neuropathy bilateral feet/R arm, colon cancer with surgery/colostomy/dumping syndrome, pancreatitis/pancreatic calcification/pseudocyst, cystic lesions L upper quadrant, anemia, chronic lumbar back pain, DDD, L eye retinal problem/affected peripheral vision, bilateral tinnitis, sinus problems, nephrolithiasis, past HTN. History of Any Multi-Drug Resistant Organisms: None Reported Past Surgical History: Orthopedic Surgery, Tonsillectomy Additional Past Surgical History / Comment(s): 1992 partial gastrectomy/small bowel resection d/t duodenal cyst, 2013 colon cancer with colectomy/ileostomy, cervical surgery with hardware, testicular surgery d/t injury, EGD, colonoscopy. Past Anesthesia/Blood Transfusion Reactions: No Reported Reaction Past Psychological History: No Psychological Hx Reported Smoking Status: Former smoker Past Alcohol Use History: Occasional Past Drug Use History: Marijuana - Past Family History Father Family Medical History: Myocardial Infarction (CT) Additional Family Medical History / Comment(s): Father of a massive CT at the age of 73yrs. Medications and Allergies Home Medications Medication Instructions Recorded Confirmed Type metFORMIN HCL [Glucophage] 1,000 mg PO BID 12/19/14 09/21/24 History Omeprazole [PriLOSEC] 20 mg PO DAILY 06/09/24 09/21/24 History glipiZIDE [Glucotrol] 5 mg PO BID-W/MEALS 06/09/24 09/21/24 History lisinopriL [Zestril] 20 mg PO DAILY 06/09/24 09/21/24 History amLODIPine [Norvasc] 10 mg PO DAILY #90 tab 06/11/24 09/21/24 Rx Allergies Allergy/AdvReac Type Severity Reaction Status Date / Time No Known Allergies Allergy Verified 09/21/24 18:14 Physical Exam Vitals: Vital Signs Temp Pulse Resp BP Pulse Ox 09/21/24 18:37 193/95 09/21/24 17:11 81 200/93 09/21/24 16:00 98.6 F 72 20 198/91 99 09/21/24 13:35 98.3 F 98 20 234/104 100 Intake and Output 09/21/24 09/21/24 09/21/24 06:59 14:59 22:59 Output Total 350 Balance -350 Output: Urine 350 Other: # Voids 1 Weight 68.039 kg Results CBC & Chem 7: 09/21/24 13:39 09/21/24 13:39 Labs: Abnormal Lab Results - Last 24 Hours (Table) 09/21/24 09/21/24 09/21/24 Range/Units 13:38 13:39 13:39 RBC 3.89 L (4.30-5.90) m/uL MCV 105.6 H (80.0-100.0) fL MCH 35.6 H (25.0-35.0) pg Lymphocytes # 0.8 L (1.0-4.8) k/uL PT 9.5 L (10.0-12.5) sec Sodium (137-145) mmol/L Chloride (98-107) mmol/L Glucose (74-99) mg/dL POC Glucose (mg/dL) 207 H (70-110) mg/dL Plasma Lactic Acid Davion (0.7-2.0) mmol/L AST (17-59) U/L Alkaline Phosphatase (38-126) U/L Total Protein (6.3-8.2) g/dL Albumin (3.5-5.0) g/dL 09/21/24 09/21/24 Range/Units 13:39 13:39 RBC (4.30-5.90) m/uL MCV (80.0-100.0) fL MCH (25.0-35.0) pg Lymphocytes # (1.0-4.8) k/uL PT (10.0-12.5) sec Sodium 133 L (137-145) mmol/L Chloride 92 L (98-107) mmol/L Glucose 195 H (74-99) mg/dL POC Glucose (mg/dL) (70-110) mg/dL Plasma Lactic Acid Davion 2.9 H* (0.7-2.0) mmol/L AST 133 H (17-59) U/L Alkaline Phosphatase 262 H (38-126) U/L Total Protein 9.1 H (6.3-8.2) g/dL Albumin 5.4 H (3.5-5.0) g/dL
[2024-09-22] MEDS ORDERED: DEXTROSE 50% SYRINGE 50 ML IVP PRN ×2 (02:45)
[2024-09-22] MEDS: LORazepam 2 MG/ML INJ IV PRN (03:41)
[2024-09-22 07:42] LABS: Basophils # (A) 0.1 k/uL (0-0.2); Basophils % (A) 2 %; Eosinophils # (A) 0.1 k/uL (0-0.7); Eosinophils % (A) 2 %; HCT 36.8 % (39.0-53.0); HGB 12.2 gm/dL (13.0-17.5); Lymphocytes # (A) 0.9 k/uL (1.0-4.8); Lymphocytes % (A) 14 %; MCH 35.2 pg (25.0-35.0); MCHC 33.1 g/dL (31.0-37.0); MCV 106.4 fL (80.0-100.0); Macrocytosis Moderate; Mean Platelet Volume 7.3; Monocytes # (A) 0.9 k/uL (0-1.0); Monocytes % (A) 14 %; Neutrophils # (A) 4.4 k/uL (1.3-7.7); Neutrophils % (A) 66 %; Platelet Count 264 k/uL (150-450); RBC 3.46 m/uL (4.30-5.90); RDW 15.2 % (11.5-15.5); WBC 6.7 k/uL (3.8-10.6)
[2024-09-22 08:01] LABS: African American GFR (CKD) >90 (>60 ml/min/1.73 sqM); Anion Gap 8 mmol/L; Blood Urea Nitrogen 9 mg/dL (9-20); Calcium 8.8 mg/dL (8.4-10.2); Carbon Dioxide 24 mmol/L (22-30); Chloride 101 mmol/L (98-107); Glucose 169 mg/dL (74-99); Non-African American GFR(CKD) >90 (>60 ml/min/1.73 sqM); Potassium 3.8 mmol/L (3.5-5.1); Sodium 133 mmol/L (137-145)
[2024-09-22 08:33] VITALS: TEMP 98.3
[2024-09-22] MEDS: THIAMINE 100 MG TAB PO SCH (08:34)
[2024-09-22] MEDS: INSULIN ASPART (NovoLOG) 100 UNIT/ML VIAL SQ SCH (08:34)
[2024-09-22] MEDS: ENOXAPARIN 40 MG/0.4 ML SYRINGE SQ SCH (08:34)
[2024-09-22] MEDS: PANTOPRAZOLE 40 MG TABLET PO SCH (08:35)
[2024-09-22] MEDS: HYDROcodone/APAP 5-325MG 1 EACH TAB PO PRN (10:42)
--- NOTE | 2024-09-22 12:03 | P.GSCN ---
History of Present Illness Consult date: 09/22/24 Reason for Consult: Colostomy pain History of present illness: 64-year-old male with history of previous rectal cancer. Patient states he had a proctectomy with permanent colostomy performed. He had a ostomy prolapse that was repaired a few years ago. It had to be repeated shortly thereafter. On his CAT scan he has mesh with tacks present suggesting a previous parastomal hernia repair as well. Patient says he has had much of his bowel removed and has frequent loose stools. Came to the hospital because of ongoing pain at the ostomy itself. Patient says the stoma feels more firm than usual. It is sticking out slightly more than normal. There is not necessarily discomfort around the stoma site. No fevers. White blood cell count normal. Patient with history of alcohol abuse in the past and states he recently started drinking again because of the discomfort at the stoma. Review of Systems The patient denies any acute changes in vision or hearing, no dysphagia or odynophagia, no chest pain or shortness of breath, no dysuria or hematuria, no headache, no runny nose, no rectal bleeding or melena, no unexplained weight loss Past Medical History Past Medical History: Cancer, Diabetes Mellitus, Eye Disorder, GERD/Reflux, Hearing Disorder / Deafness, Hypertension, Pneumonia Additional Past Medical History / Comment(s): NIDDM type II, neuropathy bilateral feet/R arm, colon cancer with surgery/colostomy/dumping syndrome, pancreatitis/pancreatic calcification/pseudocyst, cystic lesions L upper quadrant, anemia, chronic lumbar back pain, DDD, L eye retinal problem/affected peripheral vision, bilateral tinnitis, sinus problems, nephrolithiasis, past HTN. History of Any Multi-Drug Resistant Organisms: None Reported Past Surgical History: Orthopedic Surgery, Tonsillectomy Additional Past Surgical History / Comment(s): 1992 partial gastrectomy/small b owel resection d/t duodenal cyst, 2013 colon cancer with colectomy/ileostomy, cervical surgery with hardware, testicular surgery d/t injury, EGD, colonoscopy. Past Anesthesia/Blood Transfusion Reactions: No Reported Reaction Past Psychological History: No Psychological Hx Reported Smoking Status: Former smoker Past Alcohol Use History: Occasional Past Drug Use History: Marijuana - Past Family History Father Family Medical History: Myocardial Infarction (NM) Additional Family Medical History / Comment(s): Father of a massive [place] at the age of 73yrs. Medications and Allergies Home Medications Medication Instructions Recorded Confirmed Type metFORMIN HCL [Glucophage] 1,000 mg PO BID 12/19/14 09/21/24 History Omeprazole [PriLOSEC] 20 mg PO DAILY 06/09/24 09/21/24 History glipiZIDE [Glucotrol] 5 mg PO BID-W/MEALS 06/09/24 09/21/24 History lisinopriL [Zestril] 20 mg PO DAILY 06/09/24 09/21/24 History amLODIPine [Norvasc] 10 mg PO DAILY #90 tab 06/11/24 09/21/24 Rx Allergies Allergy/AdvReac Type Severity Reaction Status Date / Time No Known Allergies Allergy Verified 09/21/24 18:14 Surgical - Exam Vital Signs Temp Pulse Resp BP Pulse Ox 98.3 F 98 20 234/104 100 09/21/24 13:35 09/21/24 13:35 09/21/24 13:35 09/21/24 13:35 09/21/24 13:35 Physical exam: General: Well-developed, well-nourished HEENT: Normocephalic, sclerae nonicteric Abdomen: Nontender, nondistended, ostomy appliance removed, ostomy protruding slightly more than average. Tip of ostomy at approximately 3 to 4 cm above the skin surface, ostomy is somewhat firm and tender, it does not appear to be ischemic or enlarged circumferentially, no obvious parastomal hernia palpable, no parastomal erythema or cellulitis noted Extremities: No edema Neuro: Alert and oriented Results - Labs 09/22/24 07:10 09/22/24 07:10 Abnormal Lab Results - Last 24 Hours (Table) 09/21/24 09/21/24 09/21/24 Range/Units 13:38 13:39 13:39 RBC 3.89 L (4.30-5.90) m/uL Hgb (13.0-17.5) gm/dL Hct (39.0-53.0) % MCV 105.6 H (80.0-100.0) fL MCH 35.6 H (25.0-35.0) pg Lymphocytes # 0.8 L (1.0-4.8) k/uL PT 9.5 L (10.0-12.5) sec Sodium (137-145) mmol/L Chloride (98-107) mmol/L Glucose (74-99) mg/dL POC Glucose (mg/dL) 207 H (70-110) mg/dL Plasma Lactic Acid Davion (0.7-2.0) mmol/L AST (17-59) U/L Alkaline Phosphatase (38-126) U/L Total Protein (6.3-8.2) g/dL Albumin (3.5-5.0) g/dL 09/21/24 09/21/24 09/22/24 Range/Units 13:39 13:39 07:10 RBC 3.46 L (4.30-5.90) m/uL Hgb 12.2 L (13.0-17.5) gm/dL Hct 36.8 L (39.0-53.0) % MCV 106.4 H (80.0-100.0) fL MCH 35.2 H (25.0-35.0) pg Lymphocytes # 0.9 L (1.0-4.8) k/uL PT (10.0-12.5) sec Sodium 133 L (137-145) mmol/L Chloride 92 L (98-107) mmol/L Glucose 195 H (74-99) mg/dL POC Glucose (mg/dL) (70-110) mg/dL Plasma Lactic Acid Davion 2.9 H* (0.7-2.0) mmol/L AST 133 H (17-59) U/L Alkaline Phosphatase 262 H (38-126) U/L Total Protein 9.1 H (6.3-8.2) g/dL Albumin 5.4 H (3.5-5.0) g/dL 09/22/24 Range/Units 07:10 RBC (4.30-5.90) m/uL Hgb (13.0-17.5) gm/dL Hct (39.0-53.0) % MCV (80.0-100.0) fL MCH (25.0-35.0) pg Lymphocytes # (1.0-4.8) k/uL PT (10.0-12.5) sec Sodium 133 L (137-145) mmol/L Chloride (98-107) mmol/L Glucose 169 H (74-99) mg/dL POC Glucose (mg/dL) (70-110) mg/dL Plasma Lactic Acid Davion (0.7-2.0) mmol/L AST (17-59) U/L Alkaline Phosphatase (38-126) U/L Total Protein (6.3-8.2) g/dL Albumin (3.5-5.0) g/dL Diabetes panel 09/21/24 09/22/24 Range/Units 13:39 07:10 Sodium 133 L 133 L (137-145) mmol/L Potassium 4.0 3.8 (3.5-5.1) mmol/L Chloride 92 L 101 (98-107) mmol/L Carbon Dioxide 24 24 (22-30) mmol/L BUN 14 9 (9-20) mg/dL Creatinine 1.09 0.81 (0.66-1.25) mg/dL Glucose 195 H 169 H (74-99) mg/dL Calcium 10.1 8.8 (8.4-10.2) mg/dL AST 133 H (17-59) U/L ALT 40 (4-49) U/L Alkaline Phosphatase 262 H (38-126) U/L Total Protein 9.1 H (6.3-8.2) g/dL Albumin 5.4 H (3.5-5.0) g/dL Calcium panel 09/21/24 09/22/24 Range/Units 13:39 07:10 Calcium 10.1 8.8 (8.4-10.2) mg/dL Albumin 5.4 H (3.5-5.0) g/dL Pituitary panel 09/21/24 09/22/24 Range/Units 13:39 07:10 Sodium 133 L 133 L (137-145) mmol/L Potassium 4.0 3.8 (3.5-5.1) mmol/L Chloride 92 L 101 (98-107) mmol/L Carbon Dioxide 24 24 (22-30) mmol/L BUN 14 9 (9-20) mg/dL Creatinine 1.09 0.81 (0.66-1.25) mg/dL Glucose 195 H 169 H (74-99) mg/dL Calcium 10.1 8.8 (8.4-10.2) mg/dL Adrenal panel 09/21/24 09/22/24 Range/Units 13:39 07:10 Sodium 133 L 133 L (137-145) mmol/L Potassium 4.0 3.8 (3.5-5.1) mmol/L Chloride 92 L 101 (98-107) mmol/L Carbon Dioxide 24 24 (22-30) mmol/L BUN 14 9 (9-20) mg/dL Creatinine 1.09 0.81 (0.66-1.25) mg/dL Glucose 195 H 169 H (74-99) mg/dL Calcium 10.1 8.8 (8.4-10.2) mg/dL Total Bilirubin 0.6 (0.2-1.3) mg/dL AST 133 H (17-59) U/L ALT 40 (4-49) U/L Alkaline Phosphatase 262 H (38-126) U/L Total Protein 9.1 H (6.3-8.2) g/dL Albumin 5.4 H (3.5-5.0) g/dL Assessment and Plan (1) Abdominal pain Narrative/Plan: 64-year-old male with pain at his ostomy site. Etiology unclear. CAT scan reviewed showing no obvious parastomal hernia. Previous surgical intervention appreciated. The patient may have a slight prolapse of the stoma but it is very subtle and would not recommend surgical intervention from what I am seeing clinically. Consider follow-up as outpatient with his surgeon that performed his last stomal revision who he seems to be happy with. Current Visit: Yes Status: Acute Code(s): R10.9 - UNSPECIFIED ABDOMINAL PAIN SNOMED Code(s): 08709197
[2024-09-22 12:32] LABS: Glucose,Whole Blood 310 mg/dL (70-110)
[2024-09-22 15:08] VITALS: BP 181/98; PULSE 90; RESP 20
--- NOTE | 2024-09-22 17:39 | P.DS ---
Providers Date of admission: 09/21/24 18:56 Attending physician: Tano Rich MD Consults: 09/21/24 18:53 Consult Physician Urgent Consulting Provider: Keith Batres Consult Reason/Comments: stomal pain, hx stomal prolapse, pt known to you Do you want consulting provider notified?: Yes Primary care physician: [place] Hospital Course: Hospital Course: Patient is a 64-year-old male with a history of colon cancer with colostomy since 2013 and dumping syndrome, lxj-irzbgzz-zzocpzwsh diabetes mellitus, neuropathy bilateral feet/right arm, history of pancreatitis, hypertension, and nephrolithiasis presented to the emergency department for evaluation of abdominal pain around his colostomy site. Patient does have a history of colon cancer and has had a colostomy since 2013. Patient does see a physician once every 6 months to have his colostomy evaluated. He reported that 5 days ago he started noticing abdominal pain surrounding the colostomy site that has been progressively getting worse which made the patient to come to ED for evaluation. He currently reports an 8 out of 10 sharp stabbing, nonradiating abdominal pain surrounding the colostomy site seem to alleviate temporarily with Dilaudid. Patient also reports feeling chills. Also reported tingling in bilateral lower extremity due to a chronic history of peripheral neuropathy. No fever. Also denies nausea, vomiting, chest pain, shortness of breath, dysuria. Patient also has been drinking heavily for the past 4 days. In the ED patient was treated with Dilaudid 1 mg IV x 1, Ativan 2 mg IV x 2, a bolus of normal saline.Vitals on admission temperature 98.6, pulse rate 81, blood pressure 193/95, O2 sat 99% on room air. CT of abdomen/pelvis shows no acute abnormality in abdomen/pelvis. Stable CT exam compared to previous study dated 06/09/2024. KUB x-ray shows no specific abdomen with no obstruction Labs on admission show WBC 8.6, hemoglobin 13.8, hematocrit 41.1, MCV 105.6, platelet 309, PT 9.5, PTT 22.1, INR 0.8, sodium 133, potassium 4, chloride 92, carbon dioxide 24, BUN 14, creatinine 1.09, glucose 195, lactic acid 1.5, AST 133, ALT 40, alkaline phosphatase 262, albumin 5.4, lipase 243, serum alcohol less than 10. General surgery was consulted. No surgical intervention at this time. Patient should follow-up with outpatient general surgery. Patient is medically optimized for discharge. Upon discharge, patient should start thiamine 100 mg PO daily. Final Diagnosis: #. Abdominal pain surrounding colostomy site, status post colostomy since 2013 #. Lactic acidosis, resolved #. Transaminitis likely related to alcohol use #. Hfx-skwbtge-hazboweka diabetes mellitus #. Hypertension #. GERD Physical examination: Vital signs reviewed. Afebrile, hypertensive, saturating 97% on room air. General: Nontoxic, no distress, appears stated age, well-appearing Derm: Warm, dry, intact Head: Atraumatic, normocephalic, symmetric Eyes: EOMI, anicteric sclera Mouth: No lip lesion, mucus membranes moist Cardiovascular: S1-S2 regular, no murmur Lungs: CTA bilateral, no rhonchi, no rales, no accessory muscle use Abdominal: Soft, diffuse tenderness to palpation, nondistended Extremities: No cyanosis, clubbing, or pedal edema Neuro: Alert, oriented x 3, gross neurological examination did not reveal any focal deficits. Cranial nerves II to XII grossly intact. Psych: Appropriate affect and mood I saw and evaluated the patient during the taylor and critical portions of this encounter, and discussed the case in detail with the resident author of this note, I agree with the Assessment and Plan, and my changes, if any, are highlighted in blue. Patient Condition at Discharge: Stable Plan - Discharge Summary New Discharge Prescriptions: New Thiamine [Vitamin B-1] 100 mg PO DAILY #14 tab Continue metFORMIN HCL [Glucophage] 1,000 mg PO BID lisinopriL [Zestril] 20 mg PO DAILY Omeprazole [PriLOSEC] 20 mg PO DAILY glipiZIDE [Glucotrol] 5 mg PO BID-W/MEALS amLODIPine [Norvasc] 10 mg PO DAILY #90 tab Discharge Medication List metFORMIN HCL [Glucophage] 1,000 mg PO BID 12/19/14 [History] Omeprazole [PriLOSEC] 20 mg PO DAILY 06/09/24 [History] glipiZIDE [Glucotrol] 5 mg PO BID-W/MEALS 06/09/24 [History] lisinopriL [Zestril] 20 mg PO DAILY 06/09/24 [History] amLODIPine [Norvasc] 10 mg PO DAILY #90 tab 06/11/24 [Rx] Thiamine [Vitamin B-1] 100 mg PO DAILY #14 tab 09/22/24 [Rx] Follow up Appointment(s)/Referral(s): [facility],Clinic [Primary Care Provider] - 1-2 days Keith Batres MD [STAFF PHYSICIAN] - 1 Week Activity/Diet/Wound Care/Special Instructions: Please follow up with primary care provider and general surgeon. Discharge Disposition: HOME SELF-CARE
== END 2024-09-22 16:31 | disposition home or self-care (01) ==
LOC: EC 13:32 → 4SSUR 18:56 → 5NMEDONC 21:37
PROVIDERS: ADMIT Internal Medicine; ATTEND Internal Medicine
DX: R10.9 Unspecified abdominal pain (principal); E87.1 Hypo-osmolality and hyponatremia; E11.65 Type 2 diabetes mellitus with hyperglycemia; E87.20 Acidosis, unspecified; R74.01 Elevation of levels of liver transaminase levels; I10 Essential (primary) hypertension; K21.9 Gastro-esophageal reflux disease without esophagitis; E11.40 Type 2 diabetes mellitus with diabetic neuropathy, unspecified; H91.90 Unspecified hearing loss, unspecified ear; Z87.891 Personal history of nicotine dependence; Z79.84 Long term (current) use of oral hypoglycemic drugs; Z85.048 Personal history of other malignant neoplasm of rectum, rectosigmoid junction, and anus; Z79.899 Other long term (current) drug therapy; Z87.442 Personal history of urinary calculi; Z90.49 Acquired absence of other specified parts of digestive tract; Z90.3 Acquired absence of stomach [part of]
CPT/HCPCS: 96376 ×2; 96361; 96372 ×2; 96374; 96375; 99285; 36415; 80053; 80048; 82150; 83605; 83690; 85025 ×2; 85610; 85730; 74018; 74177; G0378 ×2; G0480; J2060 ×2; J3411; J1650; J1171; Q9967; 80320

== ENCOUNTER 2025-01-30 09:53 | Inpatient (IN) | payer MEDICARE, OTHER ==
[2025-01-30] MEDS: LORazepam 2 MG/ML INJ IV STA ×3 (10:13→11:03)
[2025-01-30] MEDS: ASPIRIN 81 MG PO STA (10:14)
[2025-01-30] MEDS: SODIUM CHLORIDE 0.9% 1,000 ML IV STA (10:16)
[2025-01-30] MEDS: ONDANSETRON 4 MG/2 ML VIAL IVP STA (10:31)
[2025-01-30 10:40] LABS: Basophils # (A) 0.13 10*3/uL (0.00-0.10); Eosinophils # (A) 0.01 10*3/uL (0.04-0.35); Eosinophils % (A) 0.1 %; HCT 44.2 % (39.6-50.0); HGB 15.6 g/dL (13.0-17.0); Lymphocytes # (A) 0.71 10*3/uL (0.90-5.00); Lymphocytes % (A) 5.6 %; MCH 34.7 pg (27.0-32.0); MCHC 35.3 g/dL (32.0-37.0); MCV 98.2 fL (80.0-97.0); Mean Platelet Volume 9.5 fL (9.5-12.2); Monocytes % (A) 11.1 %; Neutrophils # (A) 10.33 10*3/uL (1.80-7.70); Platelet Count 193 10*3/uL (140-440); RDW 12.5 % (11.5-14.5); WBC 12.61 10*3/uL (4.50-10.00)
[2025-01-30 10:41] LABS: AST 315 U/L (17-59); African American GFR (CKD) >90 (>60 ml/min/1.73 sqM); Albumin 4.8 g/dL (3.5-5.0); Alcohol <10 mg/dL; Alkaline Phosphatase 201 U/L (38-126); Anion Gap 30 mmol/L; Blood Urea Nitrogen 8 mg/dL (9-20); Calcium 9.3 mg/dL (8.4-10.2); Carbon Dioxide 12 mmol/L (22-30); Chloride 91 mmol/L (98-107); Glucose 362 mg/dL (74-99); Magnesium 1.6 mg/dL (1.6-2.3); Non-African American GFR(CKD) 81 (>60 ml/min/1.73 sqM); Potassium 4.3 mmol/L (3.5-5.1); Sodium 133 mmol/L (137-145)
[2025-01-30 10:50] LABS: ALT 73 U/L (4-49)
[2025-01-30 11:06] LABS: INR 0.9 (<1.2); Prothrombin Time 9.9 sec (10.0-12.5)
[2025-01-30 11:13] LABS: Partial Thromboplastin Time 20.5 sec (22.0-30.0)
--- NOTE | 2025-01-30 11:51 | XR ---
EXAMINATION TYPE: XR chest 2V DATE OF EXAM: 01/30/2025 CLINICAL INDICATION: Male, 64 years old with history of Dysrhythmia, TECHNIQUE: Frontal and lateral views of the chest are obtained. COMPARISON: Chest x-ray August 05, 2023 FINDINGS: There is no focal air space opacity, pleural effusion, or pneumothorax seen. The cardiac silhouette size remain within normal limits. Surgical changes near the gastroesophageal junction are redemonstrated. The osseous structures are intact. IMPRESSION: No acute cardiopulmonary process. [facility], , 01/30/2025 11:49 AM
[2025-01-30] MEDS ORDERED: LORazepam 2 MG/ML INJ IV PRN (12:16)
--- NOTE | 2025-01-30 12:16 | ED ---
Alcohol HPI - General Chief Complaint: Alcohol Stated Complaint: weakness Time Seen by Provider: 01/30/25 10:00 Source: patient, EMS Mode of arrival: EMS Limitations: no limitations - History of Present Illness Initial Comments: 64-year-old male with past medical history of hypertension, diabetes on oral medications who presents to the emergency department with palpitations, nausea and vomiting. States that his symptoms started overnight. He feels as if his heart is racing. Patient admits to daily alcohol use. States that he drinks 4, 24 ounce beers per day. His last drink was 8 PM last night. He is trying to quit drinking. Reports to significant tremors. EKG demonstrates new onset A- fib which he denies a history of. Patient is also super hypertensive. States he could not hold his home medications in today. No fevers. Denies headache or visual changes. No chest pain. No difficulty breathing. Denies abdominal pain. No hematemesis. No black or bloody stools. He denies any use of other substances. No other alleviating, precipitating or modifying factors - Related Data Home Medications Medication Instructions Recorded Confirmed metFORMIN HCL [Glucophage] 1,000 mg PO BID-W/MEALS 12/19/14 01/30/25 Omeprazole [PriLOSEC] 20 mg PO DAILY 06/09/24 01/30/25 glipiZIDE [Glucotrol] 5 mg PO BID-W/MEALS 06/09/24 01/30/25 Previous Rx's Medication Instructions Recorded Apixaban [Eliquis] 5 mg PO BID #60 tab 01/31/25 Folic Acid 1 mg PO DAILY #30 tab 01/31/25 Metoprolol Tartrate [Lopressor] 50 mg PO BID #60 tab 01/31/25 Thiamine [Vitamin B-1] 100 mg PO DAILY #30 tab 01/31/25 amLODIPine [Norvasc] 10 mg PO DAILY #30 tab 01/31/25 lisinopriL [Zestril] 20 mg PO BID #60 tab 01/31/25 Allergies Allergy/AdvReac Type Severity Reaction Status Date / Time No Known Allergies Allergy Verified 01/30/25 14:36 Review of Systems ROS Statement: Those systems with pertinent positive or pertinent negative responses have been documented in the HPI. ROS Other: All systems not noted in ROS Statement are negative. Past Medical History Past Medical History: Cancer, Diabetes Mellitus, Eye Disorder, GERD/Reflux, Hearing Disorder / Deafness, Hypertension, Pneumonia Additional Past Medical History / Comment(s): NIDDM type II, neuropathy bilateral feet/R arm, colon cancer with surgery/colostomy/dumping syndrome, pancreatitis/pancreatic calcification/pseudocyst, cystic lesions L upper quadrant, anemia, chronic lumbar back pain, DDD, L eye retinal problem/affected peripheral vision, bilateral tinnitis, sinus problems, nephrolithiasis, past HTN. History of Any Multi-Drug Resistant Organisms: None Reported Past Surgical History: Orthopedic Surgery, Tonsillectomy Additional Past Surgical History / Comment(s): 1992 partial gastrectomy/small bowel resection d/t duodenal cyst, 2013 colon cancer with colectomy/ileostomy, cervical surgery with hardware, testicular surgery d/t injury, EGD, colonoscopy. Past Anesthesia/Blood Transfusion Reactions: No Reported Reaction Past Psychological History: No Psychological Hx Reported Smoking Status: Former smoker Past Alcohol Use History: Occasional Past Drug Use History: Marijuana - Past Family History Father Family Medical History: Myocardial Infarction (VT) Additional Family Medical History / Comment(s): Father of a massive VT at t he age of 73yrs. General Exam Limitations: no limitations General appearance: alert, appears intoxicated, anxious Head exam: Present: atraumatic, normocephalic, normal inspection Eye exam: Present: normal appearance, PERRL, EOMI. Absent: scleral icterus, conjunctival injection, periorbital swelling ENT exam: Present: normal exam, mucous membranes moist Neck exam: Present: normal inspection. Absent: tenderness, meningismus, lympha denopathy Respiratory exam: Present: normal lung sounds bilaterally. Absent: respiratory distress, wheezes, rales, rhonchi, stridor Cardiovascular Exam: Present: tachycardia, irregular rhythm Back exam: Present: normal inspection Neurological exam: Present: alert, oriented X3, CN II-XII intact Psychiatric exam: Present: anxious Skin exam: Present: warm, dry, intact, normal color. Absent: rash Course Vital Signs 01/30/25 01/30/25 01/30/25 09:54 10:31 13:01 Temperature Pulse Rate 168 H 86 Pulse Rate [ 151 H Saturation Diver ] Respiratory 24 16 Rate Blood Pressure 159/120 161/92 Blood Pressure [Left Arm] O2 Sat by Pulse 99 95 Oximetry 01/30/25 01/30/2525 14:25 15:59 16:38 Temperature Pulse Rate 82 72 71 Pulse Rate [ Saturation Diver ] Respiratory 16 19 16 Rate Blood Pressure 150/98 190/100 195/90 Blood Pressure [Left Arm] O2 Sat by Pulse 98 98 98 Oximetry 01/30/25 17:00 Temperature 97.5 F L Pulse Rate Pulse Rate [ 76 Saturation Diver ] Respiratory 18 Rate Blood Pressure Blood Pressure 189/80 [Left Arm] O2 Sat by Pulse 99 Oximetry Medical Decision Making - Medical Decision Making Was pt. sent in by a medical professional or institution (, PA, LAB SUPPORT TECHNICIAN, urgent care, hospital, or [facility]...) When possible be specific @ -No Did you speak to anyone other than the patient for history (EMS, parent, family, police, friend...)? What history was obtained from this source @ -No Did you review nursing and triage notes (agree or disagree)? Why? @ -I reviewed and agree with nursing and triage notes Were old charts reviewed (outside hosp., previous admission, EMS record, old EKG, old radiological studies, urgent care reports/EKG's, [facility] records)? Report findings @ -No old charts were reviewed Differential Diagnosis (chest pain, altered mental status, abdominal pain women, abdominal pain men, vaginal bleeding, weakness, fever, dyspnea, syncope, headache, dizziness, GI bleed, back pain, seizure, CVA, palpatations, mental health, musculoskeletal)? @ -Differential Palpitations Ventricular arrhythmias, atrial arrhythmias, myocardial infarction, anemia, thyrotoxicosis, electrolyte imbalance, hypokalemia, pulmonary embolism, pulmonary disease, drugs, alcohol, anxiety, stress.... This is not meant to be an all-inclusive list. EKG interpreted by me (3pts min.). @ - EKG done at 1002 demonstrates A-fib with a rate of 160. QRS 96. QTc of 376. No acute ST segment elevation. Mild ST depression V3 through V6 Repeat EKG done at 1026 continues to demonstrate A-fib with a rate of 164. NJ interval 99. QTc of 367. Continue ST depression V4 through V6 Repeat EKG done at 1313 demonstrates sinus rhythm with a rate of 78. NJ interval 203. QRS 97. QTc of 438. No acute ST segment elevations or depressions X-rays interpreted by me (1pt min.). @ -yes which demonstrates no acute process CT interpreted by me (1pt min.). @ -yes which demonstrates prior pancreatitis U/S interpreted by me (1pt. min.). @ -None done What testing was considered but not performed or refused? (CT, X-rays, U/S, labs)? Why? @ -None What meds were considered but not given or refused? Why? @ -None Did you discuss the management of the patient with other professionals (professionals i.e. Dr., PA, LAB SUPPORT TECHNICIAN, lab, RT, psych nurse, web content & social media manager, speech pathologist assistant, teacher, armed security officer, family preservation caseworker)? Give summary @ -Spoke with Ellis solano [facility], [place] for admission Was smoking cessation discussed for >3mins.? @ -No Was critical care preformed (if so, how long)? @ -Yes, 35 minutes for management of rapid A-fib Were there social determinants of health that impacted care today? How? (Homelessness, low income, unemployed, alcoholism, drug addiction, transportation, low edu. Level, literacy, decrease access to med. care, snf, rehab)? @ -No Was there de-escalation of care discussed even if they declined (Discuss DNR or withdrawal of care, Hospice)? DNR status @ -No What co-morbidities impacted this encounter? (DM, HTN, Smoking, COPD, CAD, Cancer, CVA, ARF, Chemo, Hep., AIDS, mental health diagnosis, sleep apnea, morbid obesity)? @ -Alcoholism Was patient admitted / discharged? Hospital course, mention meds given and route, prescriptions, significant lab abnormalities, going to OR and other pertinent info. @ -Upon arrival patient seen and evaluated in room. Thorough history and physical IV is established. Patient was given Ativan as he appears to be going through withdrawal. He has a nausea medication laboratory studies are conducted. Chest x-ray was performed. CT of the chest was performed which demonstrates no PE. Results are discussed with the patient. Recommended admiss ion due to alcohol withdrawal symptoms patient was agreeable to this. Spoke with Ellis from [facility], [place] Undiagnosed new problem with uncertain prognosis? @ -No Drug Therapy requiring intensive monitoring for toxicity (Heparin, Nitro, Insulin, Cardizem)? @ -Cardizem, heparin Were any procedures done? @ -No Diagnosis/symptom? @ -New onset A-fib with RVR, alcohol intoxication, alcohol withdrawal Acute, or Chronic, or Acute on Chronic? @ -Acute Uncomplicated (without systemic symptoms) or Complicated (systemic symptoms)? @ -Complicated Side effects of treatment? @ -Hypotension, bradycardia Exacerbation, Progression, or Severe Exacerbation? @ -No Poses a threat to life or bodily function? How? (Chest pain, USA, VT, pneumonia, PE, COPD, DKA, ARF, appy, cholecystitis, CVA, Diverticulitis, Homicidal, Suicidal, threat to staff... and all critical care pts) @ -No - Lab Data Result diagrams: 01/31/25 07:43 01/31/25 07:43 Lab Results 01/30/25 01/30/25 01/30/25 Range/Units 10:04 10:22 10:22 WBC 12.61 H (4.50-10.00) 10*3/uL RBC 4.50 (4.40-5.60) 10*6/uL Hgb 15.6 (13.0-17.0) g/dL Hct 44.2 (39.6-50.0) % MCV 98.2 H (80.0-97.0) fL MCH 34.7 H (27.0-32.0) pg MCHC 35.3 (32.0-37.0) g/dL Plt Count 193 (140-440) 10*3/uL MPV 9.5 (9.5-12.2) fL Immature Gran % (Auto) 0.2 % Neutrophils % 82.0 % Lymphocytes % 5.6 % Monocytes % 11.1 % Eosinophils % 0.1 % Basophils % 1.0 % Immature Gran # 0.03 (0.00-0.04) 10*3/uL Neutrophils # 10.33 H (1.80-7.70) 10*3/uL Lymphocytes # 0.71 L (0.90-5.00) 10*3/uL Monocytes # 1.40 H (0.20-1.00) 10*3/uL Eosinophils # 0.01 L (0.04-0.35) 10*3/uL Basophils # 0.13 H (0.00-0.10) 10*3/uL PT 9.9 L (10.0-12.5) sec INR 0.9 (<1.2) APTT 20.5 L (22.0-30.0) sec D-Dimer 2.23 H (<0.60) mg/L FEU Sodium (137-145) mmol/L Potassium (3.5-5.1) mmol/L Chloride (98-107) mmol/L Carbon Dioxide (22-30) mmol/L Anion Gap mmol/L BUN (9-20) mg/dL Creatinine (0.66-1.25) mg/dL Est GFR (CKD-EPI)AfAm (>60 ml/min/1.73 sqM) Est GFR (CKD-EPI)NonAf (>60 ml/min/1.73 sqM) Glucose (74-99) mg/dL Calcium (8.4-10.2) mg/dL Magnesium (1.6-2.3) mg/dL Total Bilirubin (0.2-1.3) mg/dL AST (17-59) U/L ALT (4-49) U/L Alkaline Phosphatase (38-126) U/L Troponin I (0.000-0.034) ng/mL Total Protein (6.3-8.2) g/dL Albumin (3.5-5.0) g/dL TSH (0.465-4.680) mIU/L Urine Color Light Yellow Urine Appearance Clear (Clear) Urine pH 6.0 (5.0-8.0) Ur Specific [place] 1.049 H (1.001-1.035) Urine Protein Trace H (Negative) Urine Glucose (UA) 2+ H (Negative) Urine Ketones 1+ H (Negative) Urine Blood Trace H (Negative) Urine Nitrite Negative (Negative) Urine Bilirubin Negative (Negative) Urine Urobilinogen <2.0 (<2.0) mg/dL Ur Leukocyte Esterase Negative (Negative) Urine RBC 1 (0-5) /hpf Urine Opiates Screen Not Detected (NotDetected) Ur Oxycodone Screen Not Detected (NotDetected) Urine Methadone Screen Not Detected (NotDetected) Ur Barbiturates Screen Not Detected (NotDetected) U Tricyclic Antidepress Not Detected (NotDetected) Ur Phencyclidine Scrn Not Detected (NotDetected) Ur Amphetamines Screen Not Detected (NotDetected) U Methamphetamines Scrn Not Detected (NotDetected) U Benzodiazepines Scrn Detected H (NotDetected) Urine Cocaine Screen Not Detected (NotDetected) U Marijuana (THC) Screen Detected H (NotDetected) Serum Alcohol mg/dL 01/30/25 01/30/25 Range/Units 10:22 10:22 WBC (4.50-10.00) 10*3/uL RBC (4.40-5.60) 10*6/uL Hgb (13.0-17.0) g/dL Hct (39.6-50.0) % MCV (80.0-97.0) fL MCH (27.0-32.0) pg MCHC (32.0-37.0) g/dL Plt Count (140-440) 10*3/uL MPV (9.5-12.2) fL Immature Gran % (Auto) % Neutrophils % % Lymphocytes % % Monocytes % % Eosinophils % % Basophils % % Immature Gran # (0.00-0.04) 10*3/uL Neutrophils # (1.80-7.70) 10*3/uL Lymphocytes # (0.90-5.00) 10*3/uL Monocytes # (0.20-1.00) 10*3/uL Eosinophils # (0.04-0.35) 10*3/uL Basophils # (0.00-0.10) 10*3/uL PT (10.0-12.5) sec INR (<1.2) APTT (22.0-30.0) sec D-Dimer (<0.60) mg/L FEU Sodium 133 L (137-145) mmol/L Potassium 4.3 (3.5-5.1) mmol/L Chloride 91 L (98-107) mmol/L Carbon Dioxide 12 L (22-30) mmol/L Anion Gap 30 mmol/L BUN 8 L (9-20) mg/dL Creatinine 0.99 (0.66-1.25) mg/dL Est GFR (CKD-EPI)AfAm >90 (>60 ml/min/1.73 sqM) Est GFR (CKD-EPI)NonAf 81 (>60 ml/min/1.73 sqM) Glucose 362 H (74-99) mg/dL Calcium 9.3 (8.4-10.2) mg/dL Magnesium 1.6 (1.6-2.3) mg/dL Total Bilirubin 2.0 H (0.2-1.3) mg/dL AST 315 H (17-59) U/L ALT 73 H (4-49) U/L Alkaline Phosphatase 201 H (38-126) U/L Troponin I <0.012 (0.000-0.034) ng/mL Total Protein 8.0 (6.3-8.2) g/dL Albumin 4.8 (3.5-5.0) g/dL TSH 4.030 (0.465-4.680) mIU/L Urine Color Urine Appearance (Clear) Urine pH (5.0-8.0) Ur Specific [place] (1.001-1.035) Urine Protein (Negative) Urine Glucose (UA) (Negative) Urine Ketones (Negative) Urine Blood (Negative) Urine Nitrite (Negative) Urine Bilirubin (Negative) Urine Urobilinogen (<2.0) mg/dL Ur Leukocyte Esterase (Negative) Urine RBC (0-5) /hpf Urine Opiates Screen (NotDetected) Ur Oxycodone Screen (NotDetected) Urine Methadone Screen (NotDetected) Ur Barbiturates Screen (NotDetected) U Tricyclic Antidepress (NotDetected) Ur Phencyclidine Scrn (NotDetected) Ur Amphetamines Screen (NotDetected) U Methamphetamines Scrn (NotDetected) U Benzodiazepines Scrn (NotDetected) Urine Cocaine Screen (NotDetected) U Marijuana (THC) Screen (NotDetected) Serum Alcohol <10 mg/dL Disposition Clinical Impression: Tremor, Alcohol abuse with withdrawal, New onset a-fib, Hypomagnesemia, Transaminitis, Hyperglycemia Disposition: ADMITTED IP TO THIS [facility] Condition: Serious Is patient prescribed a controlled substance at d/c from ED?: No Time of Disposition: 12:16 Decision to Admit Reason: Admit from EC Decision Date: 01/30/25 Decision Time: 12:16
[2025-01-30] MEDS ORDERED: DEXTROSE 50% SYRINGE 50 ML IVP PRN ×2 (12:19)
[2025-01-30] MEDS ORDERED: NALOXONE 0.4 MG/ML 1 ML VIAL IV PRN ×2 (12:25→14:00)
[2025-01-30] MEDS ORDERED: ONDANSETRON 4 MG/2 ML VIAL IVP PRN (12:25)
--- NOTE | 2025-01-30 12:25 | CT ---
EXAMINATION TYPE: CT chest angio for PE CT DLP: 293.3 mGycm, Automated exposure control for dose reduction was used. DATE OF EXAM: 01/30/2025 12:16 PM COMPARISON: Chest radiograph from same day. CLINICAL INDICATION:Male, 64 years old with history of new onset afib; a-fib TECHNIQUE/CONTRAST: CTA scan of the thorax is performed with IV Contrast, patient injected with 100 ml mL of Isovue 370, pulmonary embolism protocol. MIP images are created and reviewed. FINDINGS: Pulmonary Artery: There is no evidence for a filling defect within the pulmonary vasculature to sugge st acute pulmonary embolism. The pulmonary artery is of normal size. Lungs/Pleura: No evidence of focal consolidation, pleural effusion or pneumothorax. Minimal biapical pleural parenchymal scarring. Mild centrilobular emphysematous changes. Calcified pleural plaque abad g the right lung base. Few scattered calcified granulomas. Linear scarring and atelectasis within the left lung base. Airway: Large airways are patent. Heart: Size within normal limits. No significant coronary artery calcifications. Vasculature: Moderate atherosclerotic calcifications are present throughout the aorta and its branche s. No thoracic aortic aneurysm. At least mild stenosis of the origin of the left subclavian artery se condary to calcified plaque. At least mild stenosis involving the proximal right brachiocephalic noel ry secondary to calcified noncalcified plaque. Mediastinum: No gross evidence of adenopathy. Musculoskeletal: No acute osseous abnormalities. Remote healed right-sided rib fractures. Mild multil evel degenerative disc disease. Soft Tissues: Increased density posterior to the nipples bilaterally consistent with gynecomastia. Lower neck: No significant findings. Upper Abdomen: Postsurgical changes at the GE junction. Postsurgical changes of the stomach with sutu re material identified. Multiple pancreatic parenchymal calcifications identified. The visualized louie er is diffusely hypoattenuating. IMPRESSION: 1. No evidence of pulmonary embolism or acute thoracic processes. 2. Mild emphysematous changes. 3. Right lower lobe calcified pleural plaque. Correlate for prior asbestosis exposure. 4. Hepatic steatosis. 5. Findings of chronic pancreatitis. [facility], , 01/30/2025 12:23 PM
[2025-01-30] MEDS: MAGNESIUM SULFATE-D5W PMX 1 GM in DEXTROSE/WATER 1 100ML.BAG IVPB SCH (12:27)
[2025-01-30] MEDS ORDERED: HEPARIN SODIUM 1,000 UN/ML (10ML VL) IV PRN (12:31)
[2025-01-30 12:37] LABS: Glucose,Whole Blood 348 mg/dL (70-110)
[2025-01-30] MEDS: HEPARIN SODIUM 1,000 UN/ML (10ML VL) IV ONE (12:49)
[2025-01-30] MEDS: HEPARIN SOD,PORK IN 0.45% NACL 25,000 UNIT in 0.45% NACL 1 250ML.BAG IV SCH (12:50)
[2025-01-30] MEDS: SODIUM CHLORIDE 0.9% 1,000 ML IV SCH (12:53)
[2025-01-30] MEDS: INSULIN LISPRO (HumaLOG) 100 UNIT/ML 10 mL VL SQ SCH ×2 (12:55→17:56)
[2025-01-30] MEDS: PANTOPRAZOLE 40 MG/10 ML VIAL IV SCH (12:57)
[2025-01-30] MEDS: LORazepam 2 MG/ML INJ IV PRN ×2 (12:58→16:18)
--- NOTE | 2025-01-30 14:02 | P.HPIM ---
History of Present Illness H&P Date: 01/30/25 Patient is a 74-year-old male with past medical history of colon cancer with history of colostomy 2013 complicated by dumping syndrome, type II DM not on insulin complicated by diabetic neuropathy, history of pancreatitis, hypertension, nephrolithiasis, alcohol use disorder, HTN, GERD, hepatic steatosis, who presented to the ER with palpitations, nausea, vomiting, 01/30/2025. Symptoms started overnight. Patient is a daily drinker he drinks 4 of the 24 ounces beers a day and the last drink was yesterday 8 PM. Patient decided to stop drinking and developed tremors since. He denies chest pain, shortness of breath, abdominal pain, dysuria, fevers, chills. On admission afebrile, heart rate initially in 160s s, blood pressure elevated 159/120, SpO2 99% on room air. Lab work significant for leukocytosis 12.6, normal hemoglobin platelet count, D- dimer elevated 2.23, sodium 133, bicarb 12, creatinine 0.99, glucose elevated 362, 0, total bilirubin elevated 2.0, AST and ALT elevated 215 and 73 accordingly, alk phos elevated 201, troponin negative, magnesium 1.6, TSH 4.03, serum alcohol negative. EKG showed A-fib with RVR CTA chest showed no PE, emphysematous changes, right lower lobe calcified plaque, hepatic steatosis, chronic pancreatitis. Patient was started on heparin drip as well as provided with Cardizem bolus,, CIWA with Ativan, received IV hydration, will be admitted as inpatient with cardiology consult for A-fib with RVR. On my examination, patient was not sinus rhythm, heart rate in the 80s, he received Ativan before my evaluation he was somewhat sedated, however, was able to participate in conversation fully with some redirection's. He denied chest pain, palpitations, shortness of breath. [id number] 2, switched to Eliquis 5 twice daily, started on metoprolol 25 twice daily. Pertinent positives and negatives as discussed in HPI, a complete review of systems was performed and all other systems are negative. Patient seen and examined at bedside. [] Vital signs reviewed General: nontoxic, no distress, appears at stated age Derm: warm, dry Head: atraumatic, normocephalic, symmetric Eyes: EOMI, no lid lag, anicteric sclera, pupils equal round reactive to light ENT: Nose and ears atraumatic Neck: No thyromegaly, supple Mouth: no lip lesion, mucus membranes moist Cardiovascular: S1S2 reg, no murmur, no edema Lungs: clear to auscultation bilateral, no rhonchi, no rales, no wheeze, no accessory muscle use Abdominal: soft, nontender to palpation, no guarding, no appreciable organomegaly, stoma in place Ext: no gross muscle atrophy, muscle strength muscle strength 5 out of 5 in all 4 extremities, no contractures Neuro: CN II-XII grossly intact Psych: Alert, oriented, appropriate affect Assessment/Plan: paroxysmal A-fib with RVR -Cardiology consulted, appreciate recommendations - Discontinue heparin drip, start Eliquis 5 mg twice daily -CHADVASC 2 for hypertension and diabetes history, -Start metoprolol tartrate 25 twice daily Alcohol withdrawal Alcohol use disorder -Continue CIWA with Ativan, daily thiamine 100 mg oral, folic acid 1 mg oral -Social work consulted [Chronic hyponatremia - Continue NS at 130 cc/h - Continue to monitor BMP daily Type II DM not on insulin -Hyperglycemic, proceed with Accu-Cheks, SSI's, Lantus 10, mealtime 3, just Elevated liver enzymes Hepatic steatosis -Likely alcohol induced -Continue to monitor CMP -Previously liver enzymes and ALP elevated as well Hypertension Hypertensive urgency -Resume home lisinopril 20 mg and amlodipine 10 mg daily, med rec pending -Started on metoprolol tartrate 25 mg p.o. twice daily GERD: Resume home omeprazole 20 mg daily The patient is admitted with an anticipated greater than 2 midnight stay as inpatient status for evaluation of A-fib with RVR. CODE STATUS: Full code DVT prophylaxis: Heparin drip Anticipated discharge date: TBD Anticipated discharge place: TBD A total of 41 minutes was spent on the care of this complex patient more than 50% of the time was spent in counseling and care coordination. Past Medical History Past Medical History: Cancer, Diabetes Mellitus, Eye Disorder, GERD/Reflux, Hearing Disorder / Deafness, Hypertension, Pneumonia Additional Past Medical History / Comment(s): NIDDM type II, neuropathy bilateral feet/R arm, colon cancer with surgery/colostomy/dumping syndrome, pancreatitis/pancreatic calcification/pseudocyst, cystic lesions L upper quadrant, anemia, chronic lumbar back pain, DDD, L eye retinal problem/affected peripheral vision, bilateral tinnitis, sinus problems, nephrolithiasis, past HTN. History of Any Multi-Drug Resistant Organisms: None Reported Past Surgical History: Orthopedic Surgery, Tonsillectomy Additional Past Surgical History / Comment(s): 1992 partial gastrectomy/small bowel resection d/t duodenal cyst, 2013 colon cancer with colectomy/ileostomy, cervical surgery with hardware, testicular surgery d/t injury, EGD, colonoscopy. Past Anesthesia/Blood Transfusion Reactions: No Reported Reaction Past Psychological History: No Psychological Hx Reported Smoking Status: Former smoker Past Alcohol Use History: Occasional Past Drug Use History: Marijuana - Past Family History Father Family Medical History: Myocardial Infarction ([place]) Additional Family Medical History / Comment(s): Father of a massive [place] at the age of 73yrs. Medications and Allergies Home Medications Medication Instructions Recorded Confirmed Type metFORMIN HCL [Glucophage] 1,000 mg PO BID 12/19/14 09/21/24 History Omeprazole [PriLOSEC] 20 mg PO DAILY 06/09/24 09/21/24 History glipiZIDE [Glucotrol] 5 mg PO BID-W/MEALS 06/09/24 09/21/24 History lisinopriL [Zestril] 20 mg PO DAILY 06/09/24 09/21/24 History amLODIPine [Norvasc] 10 mg PO DAILY #90 tab 06/11/24 09/21/24 Rx Thiamine [Vitamin B-1] 100 mg PO DAILY #14 tab 09/22/24 Rx Allergies Allergy/AdvReac Type Severity Reaction Status Date / Time No Known Allergies Allergy Verified 01/30/25 10:02 Physical Exam Vitals: Vital Signs Pulse Pulse Resp BP Pulse Ox 01/30/25 13:01 86 16 161/92 95 01/30/25 10:31 151 H 01/30/25 09:54 168 H 24 159/120 99 Intake and Output 01/29/25 01/30/25 01/30/25 22:59 06:59 14:59 Other: Weight 68.039 kg Results CBC & Chem 7: 01/30/25 10:22 01/30/25 10:22 Labs: Abnormal Lab Results - Last 24 Hours (Table) 01/30/25 01/30/25 01/30/25 Range/Units 10:22 10:22 10:22 WBC 12.61 H (4.50-10.00) 10*3/uL MCV 98.2 H (80.0-97.0) fL MCH 34.7 H (27.0-32.0) pg Neutrophils # 10.33 H (1.80-7.70) 10*3/uL Lymphocytes # 0.71 L (0.90-5.00) 10*3/uL Monocytes # 1.40 H (0.20-1.00) 10*3/uL Eosinophils # 0.01 L (0.04-0.35) 10*3/uL Basophils # 0.13 H (0.00-0.10) 10*3/uL PT 9.9 L (10.0-12.5) sec APTT 20.5 L (22.0-30.0) sec D-Dimer 2.23 H (<0.60) mg/L FEU Sodium 133 L (137-145) mmol/L Chloride 91 L (98-107) mmol/L Carbon Dioxide 12 L (22-30) mmol/L BUN 8 L (9-20) mg/dL Glucose 362 H (74-99) mg/dL POC Glucose (mg/dL) (70-110) mg/dL Total Bilirubin 2.0 H (0.2-1.3) mg/dL AST 315 H (17-59) U/L ALT 73 H (4-49) U/L Alkaline Phosphatase 201 H (38-126) U/L 01/30/25 Range/Units 12:36 WBC (4.50-10.00) 10*3/uL MCV (80.0-97.0) fL MCH (27.0-32.0) pg Neutrophils # (1.80-7.70) 10*3/uL Lymphocytes # (0.90-5.00) 10*3/uL Monocytes # (0.20-1.00) 10*3/uL Eosinophils # (0.04-0.35) 10*3/uL Basophils # (0.00-0.10) 10*3/uL PT (10.0-12.5) sec APTT (22.0-30.0) sec D-Dimer (<0.60) mg/L FEU Sodium (137-145) mmol/L Chloride (98-107) mmol/L Carbon Dioxide (22-30) mmol/L BUN (9-20) mg/dL Glucose (74-99) mg/dL POC Glucose (mg/dL) 348 H (70-110) mg/dL Total Bilirubin (0.2-1.3) mg/dL AST (17-59) U/L ALT (4-49) U/L Alkaline Phosphatase (38-126) U/L
[2025-01-30 14:07] LABS: VBG PH 7.36 (7.31-7.41)
[2025-01-30] MEDS: METOPROLOL TARTRATE 25 MG TAB PO SCH (14:19)
[2025-01-30] MEDS: APIXABAN 5 MG TAB PO SCH (14:19)
[2025-01-30 15:08] LABS: African American GFR (CKD) >90 (>60 ml/min/1.73 sqM); Anion Gap 23 mmol/L; Blood Urea Nitrogen 9 mg/dL (9-20); Calcium 8.5 mg/dL (8.4-10.2); Carbon Dioxide 14 mmol/L (22-30); Chloride 96 mmol/L (98-107); Glucose 291 mg/dL (74-99); Non-African American GFR(CKD) >90 (>60 ml/min/1.73 sqM); Potassium 3.8 mmol/L (3.5-5.1); Sodium 133 mmol/L (137-145)
[2025-01-30] MEDS: DILTIAZEM 5 MG/ML 5 ML VIAL IVP STA (16:53)
[2025-01-30] MEDS: DILTIAZEM 125 MG in DEXTROSE 5% IN WATER 100 ML IV SCH (16:56)
[2025-01-30 16:59] LABS: Glucose,Whole Blood 216 mg/dL (70-110)
[2025-01-30] MEDS ORDERED: LORazepam 1 MG/0.5 ML VIAL IV PRN ×2 (17:30→17:32)
[2025-01-30] MEDS: LORazepam 1 MG/0.5 ML VIAL IV PRN (17:42)
[2025-01-30 20:12] LABS: Glucose,Whole Blood 125 mg/dL (70-110)
[2025-01-30] MEDS: INSULIN GLARGINE (LANTUS) 100 UNIT/ML SYR SQ SCH (20:47)
[2025-01-30 21:19] LABS: Appearance,Urine Clear (Clear); Bilirubin,Urine Negative (Negative); Blood,Urine Trace (Negative); Color,Urine Light Yellow; Glucose,Urine (UA) 2+ (Negative); Ketones,Urine 1+ (Negative); Leukocyte Esterase,Urine Negative (Negative); Nitrite,Urine Negative (Negative); Protein,Urine Trace (Negative); RBC,Urine 1 /hpf (0-5); Urobilinogen,Urine <2.0 mg/dL (<2.0)
[2025-01-30 21:23] LABS: Specific Gravity,Urine 1.049 (1.001-1.035)
[2025-01-30 21:39] LABS: Amphetamine Screen,Urine Not Detected (NotDetected); Barbiturate Screen,Urine Not Detected (NotDetected); Benzodiazepines Screen,Urine Detected (NotDetected); Cocaine Screen,Urine Not Detected (NotDetected); Methadone Screen, Urine Not Detected (NotDetected); Opiate Screen,Urine Not Detected (NotDetected); Oxycodone Screen, Urine Not Detected (NotDetected); Phencyclidine Screen,Urine Not Detected (NotDetected); Tricyclic Antidepressant,Urine Not Detected (NotDetected); Urn Cannabinoid Scrn Detected (NotDetected)
[2025-01-31] MEDS: cloNIDine HCL 0.1 MG TAB PO PRN (05:15)
[2025-01-31 06:19] LABS: Glucose,Whole Blood 147 mg/dL (70-110)
[2025-01-31 08:12] VITALS: RESP 14
[2025-01-31] MEDS: METOPROLOL TARTRATE 50 MG TAB PO SCH (08:15)
[2025-01-31] MEDS: THIAMINE 100 MG TAB PO SCH (08:15)
[2025-01-31] MEDS: FOLIC ACID 1 MG TAB PO SCH (08:16)
[2025-01-31] MEDS: amLODIPine 10 MG TAB PO SCH (08:16)
[2025-01-31] MEDS: lisinopriL 20 MG TAB PO SCH (08:16)
[2025-01-31 08:49] LABS: Basophils # (A) 0.08 10*3/uL (0.00-0.10); Basophils % (A) 0.9 %; Eosinophils # (A) 0.03 10*3/uL (0.04-0.35); Eosinophils % (A) 0.3 %; HCT 35.8 % (39.6-50.0); HGB 12.7 g/dL (13.0-17.0); Lymphocytes # (A) 0.94 10*3/uL (0.90-5.00); Lymphocytes % (A) 10.3 %; MCHC 35.5 g/dL (32.0-37.0); MCV 98.6 fL (80.0-97.0); Mean Platelet Volume 9.1 fL (9.5-12.2); Monocytes # (A) 1.59 10*3/uL (0.20-1.00); Monocytes % (A) 17.5 %; Neutrophils # (A) 6.44 10*3/uL (1.80-7.70); Neutrophils % (A) 70.7 %; Platelet Count 153 10*3/uL (140-440); RBC 3.63 10*6/uL (4.40-5.60); RDW 12.8 % (11.5-14.5); WBC 9.11 10*3/uL (4.50-10.00)
[2025-01-31] MEDS ORDERED: amLODIPine 5 MG TAB PO SCH (09:00)
[2025-01-31] MEDS ORDERED: lisinopriL 20 MG TAB PO SCH ×2 (09:00→21:00)
[2025-01-31 09:36] LABS: ALT 50 U/L (4-49); AST 142 U/L (17-59); African American GFR (CKD) >90 (>60 ml/min/1.73 sqM); Albumin 3.2 g/dL (3.5-5.0); Alkaline Phosphatase 129 U/L (38-126); Anion Gap 8 mmol/L; Blood Urea Nitrogen 7 mg/dL (9-20); Calcium 8.2 mg/dL (8.4-10.2); Carbon Dioxide 26 mmol/L (22-30); Chloride 101 mmol/L (98-107); Glucose 72 mg/dL (74-99); Non-African American GFR(CKD) >90 (>60 ml/min/1.73 sqM); Potassium 3.2 mmol/L (3.5-5.1); Sodium 135 mmol/L (137-145); Total Bilirubin 0.8 mg/dL (0.2-1.3)
--- NOTE | 2025-01-31 10:46 | P.CRDCN ---
History of Present Illness Consult date: 01/31/25 Reason for Consult (text): New onset atrial fibrillation History of present illness: This is 64-year-old male with past medical history of diabetes, hypertension, GERD, rectal cancer status post colostomy, marijuana use, alcohol abuse. We hav e been asked to evaluate the patient for new onset of atrial fibrillation. Patient denies history of atrial fibrillation, he has not had any cardiac workup in the past. 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 Patient states that he has been going through withdrawal symptoms and sweats. He states he is also had some chest pain and dizziness. Blood pressure readings have been significantly high up to 227/122 and currently 196/92. Patient was started on heparin drip, magnesium replaced and beta-tanner started. -EKG: #1 atrial fibrillation 164 bpm, #2 atrial fibrillation 160 bpm, #3 sinus r hythm 78 bpm -Chest x-ray: No acute process. -CTA chest: No evidence of pulmonary embolism or acute thoracic process. Mild emphysematous changes. Right lower lobe calcified pleural plaque. Correlate for prior asbestos exposure. Hepatic steatosis. Chronic pancreatitis. -Laboratory studies: WBC 12.6, hemoglobin 12.7, sodium 135, potassium 3.2, BUN 7 creatinine 0.84. Magnesium 1.6. Total bilirubin 2.0, AST 315, ALT 73, alkaline phosphatase 201. Troponin negative x 1. TSH normal at 4.03. Drug screen positive for benzodiazepines and marijuana and alcohol level less than 10, acetone positive. -Home cardiac medications: Amlodipine 5 mg daily, lisinopril 20 mg daily. Review Of Systems: At the time of my exam: CONSTITUTIONAL: Denies fever or chills. HEENT: Denies blurred vision, vision changes, or eye pain. Denies hemoptysis CARDIOVASCULAR: Denies chest pain. Denies orthopnea. Denies PND. Denies palpitations RESPIRATORY: Denies shortness of breath. GASTROINTESTINAL: Denies abdominal pain. Denies nausea or vomiting. HEMATOLOGIC: Denies bleeding disorders. GENITOURINARY: Denies any blood in urine. SKIN: Denies puritis. Denies rash. Physical examination: Gen: This is a 64-year-old male in no acute distress VS: reviewed HEENT: Head is atraumatic, normocephalic. Pupils equal, round. Sclerae is anicteric. NECK: Supple. No JVD. LUNGS: Clear to auscultation. No wheezes or rhonchi. No intercostal retractions. HEART: Regular rate and rhythm. No murmur. ABDOMEN: Soft No tenderness. EXTREMITIES: No pedal edema. No calf tenderness. NEUROLOGICAL: Patient is awake, alert and oriented x3. Assessment: New onset paroxysmal atrial fibrillation with RVR, converted to sinus rhythm Alcohol withdrawal Diabetes mellitus type 2 Hypertensive urgency GERD Rectal cancer status post colostomy Marijuana use Alcohol abuse Plan: Normal TSH Resume patient's home cardiac medications Increase lisinopril 20 mg frequency to twice daily Patient has been started on Eliquis 5 mg twice daily Patient has been started on metoprolol tartrate 50 mg twice daily Obtain 2-D echocardiogram and Doppler study to assess cardiac structure and function Obtain hepatitis panel If echocardiogram is unremarkable, cardiology will sign off and follow on an as needed basis. Recommend transfer to [facility] floor Discontinue telemetry Thank you kindly for this consultation. Nurse practitioner note has been reviewed, I agree with documented findings and plan of care. Patient was seen and examined. Past Medical History Past Medical History: Cancer, Diabetes Mellitus, Eye Disorder, GERD/Reflux, Hearing Disorder / Deafness, Hypertension, Pneumonia Additional Past Medical History / Comment(s): NIDDM type II, neuropathy bilateral feet/R arm, colon cancer with surgery/colostomy/dumping syndrome, pancreatitis/pancreatic calcification/pseudocyst, cystic lesions L upper quadrant, anemia, chronic lumbar back pain, DDD, L eye retinal problem/affected peripheral vision, bilateral tinnitis, sinus problems, nephrolithiasis, past HTN. History of Any Multi-Drug Resistant Organisms: None Reported Past Surgical History: Orthopedic Surgery, Tonsillectomy Additional Past Surgical History / Comment(s): 1992 partial gastrectomy/small bowel resection d/t duodenal cyst, 2013 colon cancer with colectomy/ileostomy, cervical surgery with hardware, testicular surgery d/t injury, EGD, colonoscopy. Past Anesthesia/Blood Transfusion Reactions: No Reported Reaction Past Psychological History: No Psychological Hx Reported Additional Psychological History / Comment(s): Pt resides at [facility] at this time. He uses a cane rarely. He does not have a license, his sister or friends take him to appts. He is wearing a tether. Smoking Status: Former smoker Past Alcohol Use History: Abuse, Daily Additional Past Alcohol Use History / Comment(s): Pt started smoking in 1970 and quit in 2013. He abused alcohol and quit that 5.5 yrs ago. Past Drug Use History: Marijuana Additional Drug Use History / Comment(s): Medical marijuana on occasion - Past Family History Father Family Medical History: Myocardial Infarction ([place]) Additional Family Medical History / Comment(s): Father of a massive [place] at the age of 73yrs. Medications and Allergies Home Medications Medication Instructions Recorded Confirmed Type metFORMIN HCL [Glucophage] 1,000 mg PO BID-W/MEALS 12/19/14 01/30/25 History Omeprazole [PriLOSEC] 20 mg PO DAILY 06/09/24 01/30/25 History glipiZIDE [Glucotrol] 5 mg PO BID-W/MEALS 06/09/24 01/30/25 History lisinopriL [Zestril] 20 mg PO DAILY 06/09/24 01/30/25 History amLODIPine [Norvasc] 5 mg PO DAILY 01/30/25 01/30/25 History Allergies Allergy/AdvReac Type Severity Reaction Status Date / Time No Known Allergies Allergy Verified 01/30/25 14:36 Physical Exam Vitals: Vital Signs Temp Pulse Pulse Resp BP BP Pulse Ox 01/31/25 05:15 196/92 01/31/25 04:45 85 16 227/122 97 01/30/25 19:25 98.1 F 71 16 195/94 99 01/30/25 17:00 97.5 F L 76 18 189/80 99 01/30/25 16:38 71 16 195/90 98 01/30/25 15:59 72 19 190/100 98 01/30/25 14:25 82 16 150/98 98 01/30/25 13:01 86 16 161/92 95 01/30/25 10:31 151 H 01/30/25 09:54 168 H 24 159/120 99 Intake and Output 01/30/25 01/31/25 01/31/25 22:59 06:59 14:59 Intake Total 624 Balance 624 Intake: Oral 624 Other: Voiding Method External Catheter External Catheter # Voids 0 Weight 68.039 kg 70.5 kg Results 01/31/25 07:43 01/31/25 07:43 Cardiac Enzymes 01/30/25 01/30/25 Range/Units 10:22 10:22 AST 315 H (17-59) U/L Troponin I <0.012 (0.000-0.034) ng/mL Coagulation 01/30/25 Range/Units 10:22 PT 9.9 L (10.0-12.5) sec APTT 20.5 L (22.0-30.0) sec CBC 01/30/25 Range/Units 10:22 WBC 12.61 H (4.50-10.00) 10*3/uL RBC 4.50 (4.40-5.60) 10*6/uL Hgb 15.6 (13.0-17.0) g/dL Hct 44.2 (39.6-50.0) % Plt Count 193 (140-440) 10*3/uL Comprehensive Metabolic Panel 01/30/25 01/30/25 Range/Units 10:22 13:46 Sodium 133 L 133 L (137-145) mmol/L Potassium 4.3 3.8 (3.5-5.1) mmol/L Chloride 91 L 96 L (98-107) mmol/L Carbon Dioxide 12 L 14 L (22-30) mmol/L BUN 8 L 9 (9-20) mg/dL Creatinine 0.99 0.82 (0.66-1.25) mg/dL Glucose 362 H 291 H (74-99) mg/dL Calcium 9.3 8.5 (8.4-10.2) mg/dL AST 315 H (17-59) U/L ALT 73 H (4-49) U/L Alkaline Phosphatase 201 H (38-126) U/L Total Protein 8.0 (6.3-8.2) g/dL Albumin 4.8 (3.5-5.0) g/dL Current Medications Generic Name Dose Route Start Last Admin Trade Name Freq PRN Reason Stop Dose Admin Amlodipine Besylate 10 mg 01/31/25 09:00 Amlodipine 10 Mg Tab PO DAILY JACKY Apixaban 5 mg 01/30/25 14:00 01/30/25 20:47 Apixaban 5 Mg Tab PO 5 mg BID JACKY Administration Protocol Clonidine 0.1 mg 01/31/25 04:54 01/31/25 05:15 Clonidine Hcl 0.1 Mg Tab PO 0.1 mg Q8H PRN Administration SBP >180 Dextrose/Water 25 ml 01/30/25 12:19 Dextrose 50% Syringe 50 Ml IVP PER PROTOCOL PRN Hypoglycemia Protocol Dextrose/Water 50 ml 01/30/25 12:19 Dextrose 50% Syringe 50 Ml IVP PER PROTOCOL PRN Hypoglycemia Protocol Folic Acid 1 mg 01/31/25 09:00 Folic Acid 1 Mg Tab PO DAILY [facility] Sodium Chloride 1,000 mls @ 130 mls/hr 01/30/25 12:30 01/31/25 06:52 Saline 0.9% IV Not Given .[id number] [facility] Insulin Glargine 10 unit 01/30/25 21:00 01/30/25 20:47 Insulin Glargine (Lantus) 100 Unit/Ml Syr SQ 10 unit HS JACKY Administration Insulin Human Lispro 0 unit 01/30/25 12:30 01/31/25 06:52 Insulin Lispro (Humalog) 100 Unit/Ml 10 Ml Vl SQ Not Given ACHS JACKY Protocol Insulin Human Lispro 3 unit 01/30/25 17:30 01/31/25 06:52 Insulin Lispro (Humalog) 100 Unit/Ml 10 Ml Vl SQ 3 unit AC-TID JACKY Administration Lisinopril 20 mg 01/31/25 09:00 Lisinopril 20 Mg Tab PO DAILY [facility] Lorazepam 1 mg 01/30/25 17:29 01/31/25 04:43 Lorazepam 1 Mg/0.5 Ml Vial IV 1 mg Q1HR PRN Administration CIWA 10 to 15 Lorazepam 1 mg 01/30/25 17:30 Lorazepam 1 Mg/0.5 Ml Vial IV Q2HR PRN CIWA 8 or 9 Lorazepam 2 mg 01/30/25 17:32 Lorazepam 1 Mg/0.5 Ml Vial IV 02/06/25 23:00 Q10M PRN CIWA 16 or higher Metoprolol Tartrate 50 mg 01/31/25 09:00 Metoprolol Tartrate 50 Mg Tab PO BID [facility] Naloxone HCl 0.2 mg 01/30/25 14:00 Naloxone 0.4 Mg/Ml 1 Ml Vial IV Q2M PRN Opioid Reversal Ondansetron HCl 4 mg 01/30/25 12:25 Ondansetron 4 Mg/2 Ml Vial IVP Q8HR PRN Nausea And Vomiting Pantoprazole Sodium 40 mg 01/30/25 12:30 01/30/25 12:57 Pantoprazole 40 Mg/10 Ml Vial IV 40 mg DAILY JACKY Administration Thiamine HCl 100 mg 01/31/25 09:00 Thiamine 100 Mg Tab PO DAILY JACKY Intake and Output 01/30/25 01/31/25 01/31/25 22:59 06:59 14:59 Intake Total 624 Balance 624 Intake: Oral 624 Other: Voiding Method External Catheter External Catheter # Voids 0 Weight 68.039 kg 70.5 kg 01/30/25 10:22 01/30/25 13:46
[2025-01-31 11:12] LABS: Glucose,Whole Blood 109 mg/dL (70-110)
[2025-01-31 15:40] LABS: Hepatitis A Antibody IgM Nonreactive (Nonreactive); Hepatitis B Core IgM Nonreactive (Nonreactive); Hepatitis B Surface Antigen Nonreactive (Nonreactive); Hepatitis C IgG Antibody Nonreactive (Nonreactive)
[2025-01-31 16:14] VITALS: BP 162/82; PULSE 73; TEMP 99.4
[2025-01-31 16:21] LABS: Glucose,Whole Blood 198 mg/dL (70-110)
--- NOTE | 2025-01-31 16:56 | CA ---
Transthoracic Echo Report Name: Abhijit Branch Age: 64 Gender: M : 1960 Exam Date: 01/31/2025 10:27 Exam Location: [place] [facility] Ht (in): 72 Wt (lb): 155 Ordering Physician: Laura Stevenson Attending/Referring Phys: [id number], Elva Horticultural Worker Pushpa Arcos RDCS Procedure CPT: Indications: new afib, converted Cardiac Hx: Technical Quality: Fair Contrast 1: Total Dose (mL): Contrast 2: Total Dose (mL): MEASUREMENTS (Male / Female) Normal Values 2D ECHO LV Diastolic Diameter PLAX 4.3 cm 4.2 - 5.9 / 3.9 - 5.3 cm LV Systolic Diameter PLAX 3.0 cm IVS Diastolic Thickness 1.3 cm 0.6 - 1.0 / 0.6 - 0.9 cm LVPW Diastolic Thickness 1.1 cm 0.6 - 1.0 / 0.6 - 0.9 cm LV Relative Wall Thickness 0.6 LVOT Diameter 2.6 cm LV Diastolic Volume MOD BP 119.2 cm??? 67 - 155 / 56 - 104 cm??? LV Systolic Volume MOD BP 49.8 cm??? 22 - 58 / 19 - 49 cm??? LV Ejection Fraction MOD BP 58.2 % >= 55 % LV Cardiac Index MOD BP 2171.4 cm???/min???m??? LV Diastolic Volume MOD 4C 116.9 cm??? LV Systolic Volume MOD 4C 50.5 cm??? LV Ejection Fraction MOD 4C 56.8 % LV Cardiac Index MOD 4C 2082.1 cm???/min???m??? LV Diastolic Length 4C 7.4 cm LV Systolic Length 4C 6.7 cm LV Diastolic Volume MOD 2C 114.5 cm??? LV Systolic Volume MOD 2C 48.7 cm??? LV Ejection Fraction MOD 2C 57.5 % LV Cardiac Index MOD 2C 2063.7 cm???/min???m??? LV Diastolic Length 2C 7.9 cm LV Systolic Length 2C 6.8 cm LA Volume 49.9 cm??? 18 - 58 / 22 - 52 cm??? LA Volume Index 26.5 cm???/m??? 16 - 28 cm???/m??? Ascending Aorta Diameter 3.3 cm DOPPLER AV Peak Velocity 108.3 cm/s AV Peak Gradient 4.7 mmHg AV Mean Velocity 89.1 cm/s AV Mean Gradient 3.3 mmHg AV Velocity Time Integral 25.3 cm LVOT Peak Velocity 88.4 cm/s LVOT Peak Gradient 3.1 mmHg LVOT Velocity Time Integral 20.1 cm LVOT Stroke Volume 110.0 cm??? LVOT Stroke Volume Index 57.5 ml/m??? LVOT Cardiac Index 3444.3 cm???/min???m??? AV Area Cont Eq vti 4.3 cm??? AV Area Cont Eq pk 4.5 cm??? MV Area PHT 5.0 cm??? Mitral E Point Velocity 57.2 cm/s Mitral A Point Velocity 49.7 cm/s Mitral E to A Ratio 1.2 MV Deceleration Time 151.7 ms FINDINGS Left Ventricle Left ventricular ejection fraction is estimated at 55-60 %. Mildly increased septal wall thickness. Left ventricular cavity size normal. No obvious regional wall motion abnormalities. Right Ventricle Normal right ventricular size and function. Unable to estimate the right ventricular systolic pressure. Right Atrium Normal right atrial size. Left Atrium Normal left atrial size. Mitral Valve Structurally normal mitral valve. Mild mitral annular calcification. No mitral stenosis, regurgitation or prolapse. Aortic Valve Aortic valve not well visualized. No aortic valve stenosis or regurgitation. Tricuspid Valve Structurally normal tricuspid valve. No tricuspid stenosis, regurgitation or prolapse. Pulmonic Valve Pulmonic valve not well visualized. Pericardium No pericardial effusion. Aorta Normal size aortic root and proximal ascending aorta. CONCLUSIONS Normal LV size and systolic function. Mild mitral annular calcification. No significant abnormality on the Doppler exam. No pericardial effusion. Right- sided pressures are not well quantified Previewed by: Dr. Phoebe Carrera MD (Electronically Signed) Final Date: 31 Jan 2025 16:55
--- NOTE | 2025-01-31 17:13 | P.DS ---
Providers Date of admission: 01/30/25 12:25 Attending physician: Sharda Trotter MD Consults: 01/30/25 12:25 Consult Physician Urgent Consulting Provider: [facility] Consult Reason/Comments: new onset afib Do you want consulting provider notified?: Yes Primary care physician: Andrés Sandoval [facility] Course: Discharge Diagnosis: New onset paroxysmal A-fib with RVR, converted to sinus Alcohol withdrawal Alcohol use disorder Chronic hyponatremia Elevated liver enzymes Hepatic steatosis Hypertensive urgency Hypertension Type II DM Hospital Course: Patient is a 74-year-old male with past medical history of colon cancer with history of colostomy 2013 complicated by dumping syndrome, type II DM not on insulin complicated by diabetic neuropathy, history of pancreatitis, hypertension, nephrolithiasis, alcohol use disorder, HTN, GERD, hepatic steatosis, who presented to the ER with palpitations, nausea, vomiting, 01/30/2025. Symptoms started overnight. Patient is a daily drinker he drinks 4 of the 24 ounces beers a day and the last drink was yesterday 8 PM. Patient decided to stop drinking and developed tremors since. He denies chest pain, shortness of breath, abdominal pain, dysuria, fevers, chills. On admission afebrile, heart rate initially in 160s s, blood pressure elevated 159/120, SpO2 99% on room air. Lab work significant for leukocytosis 12.6, normal hemoglobin platelet count, D- dimer elevated 2.23, sodium 133, bicarb 12, creatinine 0.99, glucose elevated 362, 0, total bilirubin elevated 2.0, AST and ALT elevated 215 and 73 accordingly, alk phos elevated 201, troponin negative, magnesium 1.6, TSH 4.03, serum alcohol negative. EKG showed A-fib with RVR CTA chest showed no PE, emphysematous changes, right lower lobe calcified plaque, hepatic steatosis, chronic pancreatitis. Patient was started on heparin drip as well as provided with Cardizem bolus,, CIWA with Ativan, received IV hydration, will be admitted as inpatient with cardiology consult for A-fib with RVR. On my examination, patient was not sinus rhythm, heart rate in the 80s, he received Ativan before my evaluation he was somewhat sedated, however, was able to participate in conversation fully with some redirection's. He denied chest pain, palpitations, shortness of breath. [id number] 2, switched to Eliquis 5 twice daily, started on metoprolol 25 twice daily. 01/31/2025: Converted to sinus, blood pressure significantly elevated, increased metoprolol to tartrate to 50 twice daily, amlodipine to 10 mg daily, lisinopril was increased to 20 mg twice daily by cardiology. CIWA was 0, TTE ordered. Patient will be discharged in stable condition, patient was instructed to check blood pressure daily, keep log of the readings, follow-up with PCP and cardiology. Patient was seen and examined at bedside, not in acute distress, no active complaints Vital signs reviewed and stable. General: [nontoxic], [no distress], [appears at stated age] Derm: [warm], [dry] Head: [atraumatic], [normocephalic], [symmetric] Eyes: [EOMI], [no lid lag], [anicteric sclera] Mouth: [no lip lesion], [mucus membranes moist] Cardiovascular: [S1S2 reg], [no murmur] Lungs: [CTA bilateral], [no rhonchi, no rales] , [no accessory muscle use] Abdominal: [soft], [ nontender to palpation], [no guarding], [no appreciable organomegaly] Ext: [no gross muscle atrophy], [no edema], [no contractures] Neuro: [ CN II-XI grossly intact], [no focal neuro deficits] Psych: [Alert], [oriented], [appropriate affect] A total of 40 minutes of time were spent preparing this complex discharge summary. Patient was discharged on 01/31/2025 Patient Condition at Discharge: Serious Plan - Discharge Summary Discharge Rx Participant: No New Discharge Prescriptions: New Apixaban [Eliquis] 5 mg PO BID #60 tab lisinopriL [Zestril] 20 mg PO BID #60 tab Folic Acid 1 mg PO DAILY #30 tab Metoprolol Tartrate [Lopressor] 50 mg PO BID #60 tab amLODIPine [Norvasc] 10 mg PO DAILY #30 tab Thiamine [Vitamin B-1] 100 mg PO DAILY #30 tab Continue metFORMIN HCL [Glucophage] 1,000 mg PO BID-W/MEALS Omeprazole [PriLOSEC] 20 mg PO DAILY glipiZIDE [Glucotrol] 5 mg PO BID-W/MEALS Discontinued lisinopriL [Zestril] 20 mg PO DAILY amLODIPine [Norvasc] 5 mg PO DAILY Discharge Medication List metFORMIN HCL [Glucophage] 1,000 mg PO BID-W/MEALS 12/19/14 [History] Omeprazole [PriLOSEC] 20 mg PO DAILY 06/09/24 [History] glipiZIDE [Glucotrol] 5 mg PO BID-W/MEALS 06/09/24 [History] Apixaban [Eliquis] 5 mg PO BID #60 tab 01/31/25 [Rx] Folic Acid 1 mg PO DAILY #30 tab 01/31/25 [Rx] Metoprolol Tartrate [Lopressor] 50 mg PO BID #60 tab 01/31/25 [Rx] Thiamine [Vitamin B-1] 100 mg PO DAILY #30 tab 01/31/25 [Rx] amLODIPine [Norvasc] 10 mg PO DAILY #30 tab 01/31/25 [Rx] lisinopriL [Zestril] 20 mg PO BID #60 tab 01/31/25 [Rx] Follow up Appointment(s)/Referral(s): Phoebe Carrera MD [STAFF PHYSICIAN] - 1 Week Andrés Sandoval DO [Primary Care Provider] - 1-2 days Patient Instructions/Handouts: A-fib (Atrial Fibrillation) (DC) Activity/Diet/Wound Care/Special Instructions: Call [employer] program to see about getting caregiver help at home - [phone] - they work with your Medicare/Medicaid Call [place] [facility] for Meals on Wheels and Chore Services - [phone] Please, follow-up with your primary care physician and soft metals engraver hand. Please check your blood pressure daily, keep a log of the readings to discuss with your PCP and soft metals engraver hand. Take all the medications as prescribed Strongly recommend alcohol cessation Discharge/Stand Alone Forms: AA [facility] Pamphlet, Who Do I Call?, Community Resources, Outpatient Counseling, Inp Substance Abuse Facilities Discharge Disposition: HOME SELF-CARE
== END 2025-01-31 18:11 | disposition home or self-care (01) | DRG 309 ==
LOC: EC 09:53 → 3SCARD 12:25
PROVIDERS: ADMIT Family Medicine; ATTEND Family Medicine
DX: I48.0 Paroxysmal atrial fibrillation (principal); E87.1 Hypo-osmolality and hyponatremia; F10.139 Alcohol abuse with withdrawal, unspecified; E11.65 Type 2 diabetes mellitus with hyperglycemia; I16.0 Hypertensive urgency; K76.0 Fatty (change of) liver, not elsewhere classified; K86.1 Other chronic pancreatitis; Z93.3 Colostomy status; E11.42 Type 2 diabetes mellitus with diabetic polyneuropathy; I10 Essential (primary) hypertension; E83.42 Hypomagnesemia; K70.9 Alcoholic liver disease, unspecified; K21.9 Gastro-esophageal reflux disease without esophagitis; H91.90 Unspecified hearing loss, unspecified ear; R25.1 Tremor, unspecified; Z87.891 Personal history of nicotine dependence; Z85.048 Personal history of other malignant neoplasm of rectum, rectosigmoid junction, and anus; Z90.3 Acquired absence of stomach [part of]; Z79.84 Long term (current) use of oral hypoglycemic drugs; Z79.899 Other long term (current) drug therapy; Z82.49 Family history of ischemic heart disease and other diseases of the circulatory system; Y90.0 Blood alcohol level of less than 20 mg/100 ml
CPT/HCPCS: 36415; 71046; 71275; 80048; 80053; 80074; 80306; 80320; 81001; 82009; 82803; 83036; 83735; 84443; 84484; 85025; 85379; 85610; 85730; 93005; 93306; 96361; 96365; 96366; 96367; 96368; 96375; 96376; 99285